=== PATIENT | female | born 1950 | race Caucasian/White ===

== ENCOUNTER 2016-04-09 06:13 | Inpatient (IN) | payer BC ==
[~2016-04-09] VITALS: Ht 170.2 cm; Wt 69.6 kg
[~2016-04-09 06:13] MED LIST: ALBUTEROL2.5 MG/3 M INH; ATARAX 25 MG TA25 MG PO; BAYER CHEWABLE81 MG PO; BYSTOLIC10 MG PO; LASIX40 MG PO; NEXIUM40 MG PO; NICODERM C1 PATCH .1 TRANSDERM; NORVASC5 MG PO; OMEPRAZOLE; PROAIR HFA8.5 GM INH; SPIRIVA18 MCG INH; SYMBICORT 16010.2 GM INH
[2016-04-09 07:17] LABS: BASOPHILS 0.1 % (0.0-2.0); EOSINOPHILS 0.1 % (0-7); HEMATOCRIT 37.3 % (36.0-48.0); HEMOGLOBIN 13.8 g/dL (12-16); IMMATURE GRANULOCYTES 0.6 % (0-5); LYMPHOCYTES 10.8 % (15-50); MCH 30.4 pg (26.0-34.0); MCV 82.2 fL (80.0-100.0); MEAN PLATELET VOLUME 8.7 fL (7.4-10.4); MONOCYTES 5.8 % (2-11); NEUTROPHILS 82.6 % (40-80); PLATELET COUNT 307 10x3/uL (130-400); RBC 4.54 10x6/uL (4.00-5.40); RDW 11.7 % (11.5-14.5); WBC 6.9 10x3/uL (4.8-10.8)
[2016-04-09 07:25] LABS: INR 0.84 (0.85-1.17); PROTIME 11.3 SECONDS (11.6-15.0)
[2016-04-09 07:34] LABS: ALBUMIN 3.2 g/dL (3.4-5.0); ALKALINE PHOSPHATASE 113 U/L (46-116); ALT (SGPT) 567 U/L (10-68); AMYLASE - SERUM 144 U/L (25-115); CARBON DIOXIDE 24.6 mmol/L (21.0-32.0); CREATININE - SERUM 0.6 mg/dL (0.6-1.3); GLUCOSE 78 mg/dL (74-106); MAGNESIUM - SERUM 1.6 mg/dL (1.8-2.4); PROTEIN - SERUM 7.1 g/dL (6.4-8.2); UREA NITROGEN 9 mg/dL (7-18); eGFR NON AFRICAN AMERICAN > 90 mL/min (90-120)
[2016-04-09 07:36] LABS: CALC OSMOLALITY 211 mosm/kg (275-300); LIPASE 2454 U/L (73-393)
[2016-04-09 07:38] LABS: CHLORIDE - SERUM 74 mmol/L (98-107); POTASSIUM - SERUM 6.2 mmol/L (3.5-5.1); SODIUM 105 mmol/L (136-145)
[2016-04-09 07:52] LABS: APPEARANCE CLEAR (CLEAR); BILIRUBIN NEGATIVE (NEGATIVE); COLOR YELLOW (YELLOW); GLUCOSE NEGATIVE (NEGATIVE); KETONE MODERATE mg/dL (NEGATIVE); LEUKOCYTE ESTERASE NEGATIVE (NEGATIVE); NITRITE NEGATIVE (NEGATIVE); PROTEIN 1+ mg/dL (NEGATIVE); SPECIFIC GRAVITY 1.015 (1.005-1.020); UROBILINOGEN NORMAL (NORMAL)
[2016-04-09 07:54] LABS: BACTERIA FEW /hpf (NONE SEEN); RED CELLS - URINE 0-5 /hpf (0-5); WHITE CELLS - URINE 0-5 /hpf (0-5)
--- NOTE | 2016-04-09 11:02 | NUR ---
1055-RECEIVED VIA STRETCHER FROM THE ED WITH PELAYO CATH IN PLACE. I EMPTIED 800 CC OF YELLOW URINE. THERE IS A WASHCLOTH AROUND LEFT ANKLE FROM "DRAINIGN FLUID FOR A LONG TIME". PATIENT HAS 2+ EDEMA SEEN TO RIGHT ANKLE AND MULTIPLE BRUSING, THIN SKIN TO BILATERAL LOWER EXTREMITIES. SALINE LOCK SEEN TO LEFT AC. PATIENT REPORTS THAT SHE TOOK A DRINK LAST NIGHT AND "HAS DRANK ALL MY LIFE". SISTER IN LAW AT BEDSIDE AND STATES THAT SHE WILL BRING US A LIST OF HER MEDCATIONS TO BE PLACED INTO THE SYSTEM. NPO. PLACED ON HEART MONITOR SHOWING SR W 1 DEGREE AVB, HR 62.
[2016-04-09 11:05] VITALS: BP 144/72; BMI 23.1
[2016-04-09 11:11] VITALS: BP 144/72; BMI 23.1
[2016-04-09 12:00] VITALS: BP 144/72
[2016-04-09] MEDS ORDERED: PROTONIX40 MG PO (12:50)
[2016-04-09] MEDS ORDERED: NEURONTIN 300300 MG PO (12:51)
[2016-04-09] MEDS ORDERED: ALDACTONE25 MG PO (12:52)
[2016-04-09] MEDS ORDERED: MIRAPEX0.5 MG PO (12:52)
[2016-04-09] MEDS ORDERED: THERMOTABS 1 GM1 GM PO (12:52)
[2016-04-09] MEDS ORDERED: VENTOLIN HFA18 GM INH (12:53)
--- NOTE | 2016-04-09 14:17 | NUR ---
1661-[address] REED OFFICE TO SEE ABOUT RENEWING MIRAPEX 0.5 MG DAILY FOR PATIENT'S RLS. SPOKE WITH DR LINDSEY WITH NEW ORDERS.
--- NOTE | 2016-04-09 14:19 | NUR ---
CALLED AND SPOKE TO [facility] IN PHARMACY TO SEE IF THEY WOULD PUT MIRAPEX IN SYSTEM FOR PATIENT.
--- NOTE | 2016-04-09 14:49 | NUR ---
TWO COMPLETE FULL BAGS OF HOME MEDICATIONS SENT TO PHARMACY. COPY OF THIS IS PLACED INTO THE FRONT OF THE CHART.
[2016-04-09 16:00] VITALS: BP 140/79
--- NOTE | 2016-04-09 16:59 | NUR ---
TO MRI VIA STRETCHER.
[2016-04-09 22:07] VITALS: BP 190/80
--- NOTE | 2016-04-09 22:23 | NUR ---
INITIAL ROUNDS COMPLETED AT 1920 HRS. PT RESTING WITH EYES CLOSED. RESP EVEN AND REGULAR. ASSESSMENT COMPLETED AT 2039 HRS. PT AWAKES TO VERBAL STIMULI. FOLLOWS COMMANDS. IV TO LAC WITH BANANA BAG AT 125CC/HR. IV PATENT. O2 2LNC. LUNGS DIMINISHED IN BASES BILAT. BRUISES AND SCABS NOTED TO ALL 4 EXTREMITIES. DRESSING TO LOWER L LEG CLEAN, DRY AND INTACT. PM MEDS GIVEN. PELAYO DRAINING YELLOW URINE. PT CURRETNLY RESTING WITH EYES CLOSED. RESP EVEN AND REGULAR. SR UP X2, CALL LIGHT WITHIN REACH AND BED ALARM ON.
--- NOTE | 2016-04-09 22:34 | NUR ---
ADDITIONAL NOTED. ON ASSESSMENT ABD LARGE WITH EXTREMELY HYPOACTIVE BS.
--- NOTE | 2016-04-10 00:52 | NUR ---
BP 199/97. SR PER CM HR 75. DR SOARES NOTIFIED AND UPDATE, DX AND MED LIST GIVEN. NEW ORDERS RECEIVED AND NOTED. Milvia JOHNSON RN HS NOTIFIED TO PULL MEDS. SCD'S PLACED PER ORDERS. WILL CONTINUE TO MONITOR. SR UP X2, CALL LIGHT WITHIN REACH AND BED ALARM ON.
[2016-04-10 01:00] VITALS: BP 199/97
--- NOTE | 2016-04-10 02:20 | NUR ---
PT RESTING WITH EYES CLOSED. RESP EVEN AND REGULAR. SR UP X2, CALL LIGHT WITHIN REACH.
[2016-04-10 02:41] VITALS: BP 185/92
--- NOTE | 2016-04-10 04:01 | NUR ---
ATIVAN 1MG SIVP GIVEN FOR TREMORS. WILL CONTINUE TO MONITOR.
[2016-04-10 04:31] VITALS: BP 147/68
--- NOTE | 2016-04-10 06:34 | NUR ---
VSS THIS AM. SBP IN 140'S. PT RESTED WELL DURING SHIDT. NEEDS MET; WILL CONTIHNUE TO MONITOR.
[2016-04-10 07:22] LABS: BASOPHILS 0.2 % (0.0-2.0); EOSINOPHILS 0.2 % (0-7); HEMATOCRIT 34.4 % (36.0-48.0); HEMOGLOBIN 12.2 g/dL (12-16); IMMATURE GRANULOCYTES 0.4 % (0-5); LYMPHOCYTES 13.2 % (15-50); MCH 29.8 pg (26.0-34.0); MCHC 35.5 g/dL (31.0-37.0); MCV 83.9 fL (80.0-100.0); MEAN PLATELET VOLUME 9.1 fL (7.4-10.4); MONOCYTES 9.2 % (2-11); NEUTROPHILS 76.8 % (40-80); PLATELET COUNT 291 10x3/uL (130-400); WBC 5.5 10x3/uL (4.8-10.8)
--- NOTE | 2016-04-10 07:22 | NUR ---
0705-AM ROUNDING DONE WITH PATIENT SEELPING. RESP ARE EVEN AND APPEAR NON LABORED. ON 2L PER NC. NS INFUSING TO LEFT AC AT 125 CC/HR. PELAYO CATH PATENT WITH CLEAR YELLOW URINE. NPO STATUS AT PRESENT TIME. BED ALARM IS ON. ON HEART MONITOR SHOWING SR W 1 AVB, HR 71. WILL CONTINUE TO MONITOR.
[2016-04-10 07:26] LABS: INR 0.91 (0.85-1.17); PROTIME 12.1 SECONDS (11.6-15.0)
[2016-04-10 07:35] LABS: ALBUMIN 2.7 g/dL (3.4-5.0); ALKALINE PHOSPHATASE 96 U/L (46-116); BILIRUBIN - DIRECT 0.32 mg/dL (0.00-0.30); BILIRUBIN - INDIRECT 0.46 mg/dL (0.00-1.00); BILIRUBIN - TOTAL 0.78 mg/dL (0.2-1.3); CALCIUM 7.9 mg/dL (8.5-10.1); CARBON DIOXIDE 25.9 mmol/L (21.0-32.0); CHLORIDE - SERUM 86 mmol/L (98-107); CREATININE - SERUM 0.5 mg/dL (0.6-1.3); MAGNESIUM - SERUM 2.3 mg/dL (1.8-2.4); PHOSPHOROUS 2.5 mg/dL (2.5-4.9); PROTEIN - SERUM 6.1 g/dL (6.4-8.2); UREA NITROGEN 8 mg/dL (7-18); eGFR NON AFRICAN AMERICAN > 90 mL/min (90-120)
[2016-04-10 07:36] LABS: ALT (SGPT) 335 U/L (10-68); CALC OSMOLALITY 234 mosm/kg (275-300); GLUCOSE 50 mg/dL (74-106); POTASSIUM - SERUM 4.9 mmol/L (3.5-5.1); SODIUM 119 mmol/L (136-145)
--- NOTE | 2016-04-10 07:41 | NUR ---
LAB TO CALL WITH RESULTS OF GLUCOSE WITH 50. PATIENT IS NPO BUT I WENT AHEAD AND GAVE 120 CC OF OJ.
[2016-04-10 08:00] VITALS: BP 157/78
--- NOTE | 2016-04-10 09:04 | NUR ---
WILL HOLD B/P MEDS UNTIL I CAN HEAR BACK FROM MD. B/P IS 157/48.
--- NOTE | 2016-04-10 09:39 | NUR ---
PATIENT HAS BILATEAL ARMS AND LEG BRUISING SEEN WITH THIN SKIN. WILL CONTINUE TO MONITOR.
[2016-04-10 12:00] VITALS: BP 129/61
[2016-04-10 12:56] VITALS: Ht 170.2 cm; Wt 69.6 kg
--- NOTE | 2016-04-10 15:30 | NUR ---
PATIENT RESTING OFF AND ON, NO SIGNS OF DT'S AT THIS TIME. WILL CONTINUE TO MONITOR.
--- NOTE | 2016-04-10 16:11 | NUR ---
1610-WITH THE HELP OF KEKE DE LA TORRE AND MYSELF, WELL ASSISTED PATIENT TO CHAIR FOR COMPLETE BATH AND LINEN CHANGE. ASSISTED BACK TO BED, BED ALARM IS ON.
--- NOTE | 2016-04-10 19:39 | NUR ---
INITIAL ROUNDS COMPLETED. PT ASKING FOR A CIGARETTE. INFORMED NO SMOKING IN HOSPITAL OR ON PREMISES. WILL CONTINUE TO MONITOR.
[2016-04-10 21:20] VITALS: BP 186/85
--- NOTE | 2016-04-10 23:37 | NUR ---
ASSESSMENT COMPETED AT 2019 HRS. SR PER CM HR 88. BP ELEVATED. IV TO LAC WITH BANANA BAG AT 125CC/HR. IV PATENT. O2 3LNC. PRODUCTIVE COUGH NOTED. LUNGS WITH BILAT WHEEZES AND RHONCHI. NUMEROUS BRUISES AND SCABS NOTED TO ALL EXTREMITIES. DRESSING TO L LOWER LEG CLEAN, DRY AND INTACT. ABD DISTENDED, FIRM WITH VERY HYPOACTIVE BS NOTED. SCD'S PLACED BACK ON PT. NO SKIN BREAKDOWN NOTED. PM MEDS GIVEN INCLUDING CATAPRES 0.1 MG FOR ELEVATED BP. PT CURRENTLY VERY RESTLESS IN BED. WILL CONTINUE TO MONITOR. PELAYO DRAINING YELLOW URINE. SR UP X2, CALL LIGHT WITHIN REACH AND BED ALARM ON.
[2016-04-11 00:30] VITALS: BP 149/91
--- NOTE | 2016-04-11 00:51 | NUR ---
O2 OFF WITH O2 SAT 85%. O2 3LNC PLACED BACK ON AND PT ENCOURAGED TO TAKE DEEP BREATHS. PT PULLED UP IN BED TO FACILITATE BREATHING. O2 SAT TO 93%. BP STABLE. PT OPENES EYES TO VERBAL STIMULI, FOLLOWS COMMANDS THEN QUICKLY FALLS BACK TO SLEEP. SR UP X2, CALL LIGHT WITHIN REACH AND BED ALARM ON
--- NOTE | 2016-04-11 02:35 | NUR ---
PT RESTING WITH EYES CLOSED. RESP EVEN AND REGULAR. SR UP X2, CALL LIGHT WITHIN REACH.
[2016-04-11 04:30] VITALS: BP 188/99
--- NOTE | 2016-04-11 04:42 | NUR ---
PT RESTING WITH EYES CLOSED. RESP EVEN AND REGULAR. SR UP X2, CALL LIGHT WITHIN REACH AND BED ALARM ON.
[2016-04-11 05:44] LABS: BASOPHILS 0.2 % (0.0-2.0); EOSINOPHILS 0 % (0-7); HEMATOCRIT 31.2 % (36.0-48.0); HEMOGLOBIN 10.9 g/dL (12-16); IMMATURE GRANULOCYTES 0.6 % (0-5); LYMPHOCYTES 14.3 % (15-50); MCH 29.9 pg (26.0-34.0); MCHC 34.9 g/dL (31.0-37.0); MCV 85.7 fL (80.0-100.0); MEAN PLATELET VOLUME 8.6 fL (7.4-10.4); MONOCYTES 11.2 % (2-11); NEUTROPHILS 73.7 % (40-80); RBC 3.64 10x6/uL (4.00-5.40); RDW 12.2 % (11.5-14.5); WBC 5.4 10x3/uL (4.8-10.8)
[2016-04-11 05:46] LABS: PLATELET COUNT 225 10x3/uL (130-400)
[2016-04-11 06:08] LABS: ALBUMIN 2.4 g/dL (3.4-5.0); ALKALINE PHOSPHATASE 82 U/L (46-116); BILIRUBIN - TOTAL 0.67 mg/dL (0.2-1.3); CALC OSMOLALITY 240 mosm/kg (275-300); CALCIUM 7.9 mg/dL (8.5-10.1); CARBON DIOXIDE 24.4 mmol/L (21.0-32.0); CHLORIDE - SERUM 91 mmol/L (98-107); CREATININE - SERUM 0.6 mg/dL (0.6-1.3); GLUCOSE 75 mg/dL (74-106); LIPASE 178 U/L (73-393); MAGNESIUM - SERUM 2.2 mg/dL (1.8-2.4); PHOSPHOROUS 2.7 mg/dL (2.5-4.9); POTASSIUM - SERUM 4.5 mmol/L (3.5-5.1); PROTEIN - SERUM 5.7 g/dL (6.4-8.2); SODIUM 121 mmol/L (136-145); UREA NITROGEN 7 mg/dL (7-18); eGFR NON AFRICAN AMERICAN > 90 mL/min (90-120)
[2016-04-11 06:09] LABS: ALT (SGPT) 226 U/L (10-68); AMYLASE - SERUM 32 U/L (25-115)
--- NOTE | 2016-04-11 06:38 | NUR ---
CLONIDONE 0.1MF PO GIVEN FOR SBP GREATER THAN 180. SR PER CM DURING SHIFT. O2 SAT 91% ON 3LNC THIS AM. NEEDS MET; WILL CONTINUE TO MONITOR.
--- NOTE | 2016-04-11 07:32 | NUR ---
0710-RESTING WITH EYES CLOSED, RESP APPEAR EVEN AND NON LABORED. ON 3L PER NC. LEFT AC SEEN WITH NS INFUSING AT 125 CC/HR. ON HEART MONITOR SHOWING SR W 1 AVB, HR 84. PELAYO CATH PATENT WITH CONCENTRATED URNIE. BED ALARM IS ON. BILATERAL NON SKID SOCKS ARE ON ALONG WITH SCD'S. WILL CONTINUE TO MONITOR.
--- NOTE | 2016-04-11 07:37 | NUR ---
AMMONIA LEVEL TO RETURN OF 37. WILL WAIT ON DR SAORES TO NOTIFY HIM. SISTER IN LAW MAYNOR HERE AT BEDSIDE.
[2016-04-11 09:10] VITALS: BP 149/69
--- NOTE | 2016-04-11 09:28 | NUR ---
0924-DR SOARES HERE TO SEE PATIENT WITH ME IN ROOM. TALKED ABOUT CONCERNS OF NOT BEING ON LIBRUIM, GETTING OFF SCHEDULED ATIVAN, EATING, AND LUNGS SOUNDING MORE CONGESTED THAN YESTERDAY. HE REPLIES THAT HE WILL LOOK AT CHEST XRAY AND LET US KNOW FROM THERE. WILL CONTINUE TO MONITOR. RT HERE FOR PRN BREATHING TREATMENT, O2 INCREASED TO 4L PER NC.
--- NOTE | 2016-04-11 09:51 | NUR ---
IV FLUIDS DECREASED TO 75 CC/HR ORDERED.
--- NOTE | 2016-04-11 10:51 | NUR ---
TO RADIOLOGY VIA BED.
--- NOTE | 2016-04-11 11:12 | NUR ---
RETURNS FROM CT, BED ALARM IS ON. SISTER JENNIFER) IS AT BEDSIDE.
[2016-04-11 12:00] VITALS: BP 126/70
--- NOTE | 2016-04-11 14:37 | NUR ---
DR CUTLER HERE TO SEE PATIENT.
--- NOTE | 2016-04-11 15:37 | NUR ---
PER DR CUTLER, IF PATIENT STARTS HAVING DT'S, TRANSFER TO ICU.
[2016-04-11 16:00] VITALS: BP 144/77
--- NOTE | 2016-04-11 17:40 | NUR ---
PATIENT IS STARTING TO GET VERY ANXIOUS, STATES SHE CAN'T BREATH. O2 SAT IS 92% ON 4L PER NC. 1 MG ATIVAN GIVEN PER LEFT AC. WILL CONTINUE TO MONITOR. BED ALARM IS ON.
--- NOTE | 2016-04-11 18:20 | NUR ---
181-PATIENT TO GET INTO A COUGHING FIT. TAKES O2 OFF, SAT DROPS TO 75 %. PLACED IMMEDIATLEY BACK ON O2 AT 4L PER. PLACED HUMMIDIFIER ALSO ON O2. 182-SAT IS 89%. WILL CONTINUE TO MONITOR.
[2016-04-11 20:19] VITALS: BP 146/73
--- NOTE | 2016-04-11 22:59 | NUR ---
INITIAL ROUNDS COMPLETED AT 1920 HRS. PT DENIED ANY DISCOMFORT. ASSESSMENT COMPLETED AT 2100 HRS. VSS. SR PER CM HR 87. O2 4LNC. LUNGS DIMINISHED IN BASES BILAT WITH SCATTERED INSP WHEEZES. BRUISES AND SCABS NOTED TO ALL EXTREMITIES. SCD'S IN USE. REMOVED AND SKIN INSPECTED. NO BREAKDOWN NOTED. ABD LARGE, FIRM WITH HYPOACTIVE BS. IV TO LAC WITH NS AT 75CC/HR. PM MEDS GIVEN. PT CURRENTLY RESTING WITH EYES CLOSED. RESP EVEN AND REGULAR. SR UP X2, CALL LIGHT WITIN REACH.
[2016-04-12 00:06] VITALS: BP 141/69
--- NOTE | 2016-04-12 00:48 | NUR ---
PT RESTING WITH EYES CLOSED. RESP EVEN AND REGULAR. SR UP X2, CALL LIGHT WITHIN REACH.
--- NOTE | 2016-04-12 01:50 | NUR ---
PT AWAKE; DENIES ANY DISCOMFORT. WILL CONITNUE TO MONITOR.
--- NOTE | 2016-04-12 03:17 | NUR ---
TORADOL 15MG IVP GIVEN FOR C/O BACK PAIN. REPOSITIONED IN BED FOR COMFORT. WILL CONTINUE TO MONITOR.
--- NOTE | 2016-04-12 04:21 | NUR ---
PT AWAKE; DENIES ANY DISCOMFORT. WILL CONTINUE TO MONITOR.
[2016-04-12 05:34] LABS: BASOPHILS 0 % (0.0-2.0); EOSINOPHILS 0 % (0-7); HEMATOCRIT 30.1 % (36.0-48.0); HEMOGLOBIN 10.3 g/dL (12-16); IMMATURE GRANULOCYTES 0.4 % (0-5); LYMPHOCYTES 5.2 % (15-50); MCH 29.8 pg (26.0-34.0); MCHC 34.2 g/dL (31.0-37.0); NEUTROPHILS 93.4 % (40-80); PLATELET COUNT 266 10x3/uL (130-400); RBC 3.46 10x6/uL (4.00-5.40); RDW 12.4 % (11.5-14.5)
[2016-04-12 05:52] LABS: ALBUMIN 2.3 g/dL (3.4-5.0); ALKALINE PHOSPHATASE 81 U/L (46-116); ALT (SGPT) 175 U/L (10-68); BILIRUBIN - TOTAL 0.48 mg/dL (0.2-1.3); CALCIUM 8.3 mg/dL (8.5-10.1); CARBON DIOXIDE 24.6 mmol/L (21.0-32.0); CHLORIDE - SERUM 94 mmol/L (98-107); CREATININE - SERUM 0.7 mg/dL (0.6-1.3); LIPASE 84 U/L (73-393); POTASSIUM - SERUM 4.4 mmol/L (3.5-5.1); PROTEIN - SERUM 5.9 g/dL (6.4-8.2); SODIUM 125 mmol/L (136-145); UREA NITROGEN 7 mg/dL (7-18); eGFR NON AFRICAN AMERICAN 90 mL/min (90-120)
[2016-04-12 05:53] LABS: AMYLASE - SERUM 18 U/L (25-115); CALC OSMOLALITY 252 mosm/kg (275-300); GLUCOSE 148 mg/dL (74-106); MAGNESIUM - SERUM 1.6 mg/dL (1.8-2.4); PHOSPHOROUS 3.4 mg/dL (2.5-4.9)
[2016-04-12 05:55] VITALS: BP 137/71
--- NOTE | 2016-04-12 06:28 | NUR ---
VSS THROUGHOUT NIGHT. SR PER CM. AM MAG 1.6. 400 MG MAG PO GIVEN PER PROTOCOL. NEEDS MET; WILL CONTINUE TO MONITOR.
--- NOTE | 2016-04-12 08:00 | NUR ---
PTS L.AC PIV INFILATRATED. NEW L.AC ACCESS GRANTED. PT HAS NS @75ML/HR INFUSING.
[2016-04-12 08:25] VITALS: BP 132/90
--- NOTE | 2016-04-12 08:35 | NUR ---
PT STATES SHE SMOKES ABOUT 2 PACKS OF CIGARETTES A DAY REQUESTING A NICOTENE PATCH. NOTIFIED AND REC'D ORDER FOR 21 PATCH. WILL CPOC.
--- NOTE | 2016-04-12 11:49 | NUR ---
PT BECOMING VERY IRRITABLE. UNABLE TO VOICE AGITATION. SISTER AT BEDSIDE VISITING. PULLED PT UP IN BED FOR COMFORT. PT DENIES ANY FURTHER NEEDS AT THIS TIME. WILL CPOC.
[2016-04-12 12:53] VITALS: BP 149/69
--- NOTE | 2016-04-12 13:31 | NUR ---
Patient Name: HAROLDO MITCHELL Admission Status: ER Accout number: [id number] Admission Date: 04-09-2016 : 1950 Admission Diagnosis:HYPO-OSMOLALITY AND HYPONATREMIA Attending: [facility] Current LOS: 3 Anticipated DC Date: Planned Disposition: Home Primary Insurance: [employer] [facility] Discharge Planning Comments: * Is the patient Alert and Oriented? Yes 0 * How many steps to enter\exit or inside your home? NONE 0 * PCP DR. RATLIFF 0 * Pharmacy [facility] 0 * Preadmission Environment Home Alone 0 * ADLs Independent 0 * Equipment Bedside Commode Nebulizer Oxygen Rolling Walker 0 * Other Equipment HOME AND PORTABLE OXYGEN [facility] - MEDICAL EQUIPMENT PROVIDER 0 * List name and contact numbers for known caregivers / representatives who currently or will assist patient after discharge: CESAR SCHAEFFER, SISTER, MAYNOR ARELLANO, SISTER IN LAW, 0 * Community resources currently utilized None 0 * Please name any agencies selected above. NONE 0 * Additional services required to return to the preadmission environment? Yes * Can the patient safely return to the preadmission environment? No 0 * Has this patient been hospitalized within the prior 30 days at any hospital? No 0 CM MET WITH PT IN ROOM TO DISCUSS DISCHARGE PLANNING AND NEEDS. PT REPORTS LIVING AT HOME INDEPENDENTLY AND ALONE. PT REPORTS HAVING ALL NEEDED MEDICAL EQUIPMENT FROM [facility]; PT REPORTS SHE NEEDS CM TO CALL [facility] TO FOREIGN BROADCAST SPECIALIST HER HOME/PORTABLE OXYGEN AND NEBULIZER BECAUSE SHE DOES NOT NEED IT AND CANNOT AFFORD IT ON HER FIXED INCOME. CM OBSERVED PT TO BE ON OVER 4LITERS OF OXYGEN NOW, CM ADVISED PT THAT SHE WILL BE TESTED FOR OXYGEN NEEDS PRIOR TO DISCHARGE AND THAT IF PT IS WANTING [facility] TO FOREIGN BROADCAST SPECIALIST EQUIPMENT, SHE MIGHT WAIT UNTIL SHE IS SURE SHE DOES NOT NEED IT AFTER THIS HOSPITALIZATION TO HAVE IT REMOVED FROM HER HOME. PT HAS NO OUTSIDE SERVICES ASSISTING IN THE HOME. CM DISCUSSED AVAILABILITY OF HOME HEALTH, REHAB SERVICES AND MEDICAL EQUIPMENT. PT DENIES DISCHARGE NEEDS, REPORTS PLAN TO RETURN HOME ALONE AT DISCHARGE SHE IS NOT ABLE TO AFFORD ANY REHAB OR HOME HEALTH SERVICES. PT REPORTS HER SISTER WILL PICK HER UP FOR DISCHARGE HOME. CM RECEIVED TELEPHONE CALL FROM PT'S SISTER IN LAW, MAYNOR PRESCOTT, , WHO INFORMED CM THAT SHE DOES NOT BELIVE PT WILL BE ABLE TO DISCHARGE HOME ALONE; PT MAY BE ABLE TO GO TO HER SISTER'S HOME AFTER HOSPITAL DISCHARGE OR AFTER DISCHARGE FROM REHAB. MAYNOR WILL SPEAK TO PT REGARDING REHAB SERVICES. PT PLANS TO DISCHARGE HOME ALONE; FAMILY TO SPEAK TO PT ABOUT GOING TO REHAB BEFORE GOING HOME. CM TO FOLLOW AND ASSIST NEEDED. Hedge Fund Accountant: Armand Lazo
--- NOTE | 2016-04-12 15:59 | NUR ---
[facility] BRACE HERE WITH [facility] BR[facility]. BRACE IN PLACE. WILL CTM.
[2016-04-12 16:49] VITALS: BP 147/76
--- NOTE | 2016-04-12 17:02 | NUR ---
PTS OUTPUT HAS BEEN VERY LOW LATELY, UPON CHECKING CATHETER NOTICED IT WASNT IN ALL THE WAY. REMOVED CATHETER WITH BULB FULLY INTACT. PT WANTS TO TRY TO VOID ON HER OWN BEFORE ANOTHER ONE IS PLACED. ASSISTED PT UP IN BED TO EAT DINNER. WILL CTM.
--- NOTE | 2016-04-12 19:30 | NUR ---
ASSESSMENT COMPLETE, DENNIES NEEDS AT THIS TIME. HOB UP SR UP X2, C/L IN REACH. RESP UNLAB WITH O2 @ 4L NC IN USE, TELEMETRY SHOWING HR SR. NS INFUSING W//O DIFF VIA PUMP AT 75CC/HR TO LEFT AC SITE WITH NO R/S NOTED AT SITE. WEARING BRIEF FOR INCONT EPISODES. BACK BRACE IN PLACE, NO FREE WATER AT BEDSIDE. CONTINUE TO MONITOR.
[2016-04-12 21:47] VITALS: BP 157/80
[2016-04-13 01:44] VITALS: BP 165/96
--- NOTE | 2016-04-13 02:35 | NUR ---
EYES CLOSED, RESP EVEN AND UNLAB WITH NO S/S OF ACUTE DISTRESS NOTED AT THIS TIME. C/L IN REACH.
[2016-04-13 06:07] LABS: BASOPHILS 0 % (0.0-2.0); EOSINOPHILS 0 % (0-7); HEMATOCRIT 31.2 % (36.0-48.0); HEMOGLOBIN 10.5 g/dL (12-16); IMMATURE GRANULOCYTES 0.3 % (0-5); LYMPHOCYTES 3.7 % (15-50); MCH 29.4 pg (26.0-34.0); MCHC 33.7 g/dL (31.0-37.0); MCV 87.4 fL (80.0-100.0); MEAN PLATELET VOLUME 8.4 fL (7.4-10.4); MONOCYTES 3.4 % (2-11); NEUTROPHILS 92.6 % (40-80); PLATELET COUNT 266 10x3/uL (130-400); RBC 3.57 10x6/uL (4.00-5.40); RDW 12.6 % (11.5-14.5)
[2016-04-13 06:10] VITALS: BP 175/119
[2016-04-13 06:13] LABS: WBC 8.9 10x3/uL (4.8-10.8)
[2016-04-13 06:39] LABS: ALBUMIN 2.5 g/dL (3.4-5.0); ALKALINE PHOSPHATASE 87 U/L (46-116); ALT (SGPT) 157 U/L (10-68); BILIRUBIN - TOTAL 0.37 mg/dL (0.2-1.3); CALC OSMOLALITY 252 mosm/kg (275-300); CALCIUM 8.6 mg/dL (8.5-10.1); CARBON DIOXIDE 25.2 mmol/L (21.0-32.0); CHLORIDE - SERUM 94 mmol/L (98-107); CREATININE - SERUM 0.6 mg/dL (0.6-1.3); GLUCOSE 139 mg/dL (74-106); MAGNESIUM - SERUM 1.6 mg/dL (1.8-2.4); POTASSIUM - SERUM 4.4 mmol/L (3.5-5.1); PROTEIN - SERUM 6.2 g/dL (6.4-8.2); SODIUM 126 mmol/L (136-145); UREA NITROGEN 6 mg/dL (7-18); eGFR NON AFRICAN AMERICAN > 90 mL/min (90-120)
[2016-04-13 08:08] VITALS: BP 161/78
[2016-04-13 11:39] VITALS: BP 148/59
--- NOTE | 2016-04-13 13:03 | NUR ---
Nutrition follow-up: Diet: Regular with thin liquids; FR PO intake ~40% average of last 3 meals Labs reviewed Wt: 157# PO intake poor at this time. Will continue to provide food choices and honor food preferences. RDN will order Ensure with meals due to poor po intake. RDN following.
--- NOTE | 2016-04-13 13:13 | NUR ---
PASSED PT OFF TO ONCOMING NURSE CRISTINA RUBIN. NO FURTHER NEEDS.
[2016-04-13 15:42] VITALS: BP 153/79
--- NOTE | 2016-04-13 18:06 | NUR ---
Pt's IV had been pulled out when pt. was received this afternoon. IV was resited using 22guage in right ac. NS fluids are running via pump at 75ml's/hr. 02 per nc going at 4L/min. Telementry attached. No voiced needs or signs of discomfort or distress. Will continue to monitor and assist prn with adl's. Call light in reach.
--- NOTE | 2016-04-13 19:30 | NUR ---
ASSESSMENT COMPLETE, VOICES NO C/O PAIN OR DISCOMFORT AT THIS TIME. HOB UP SR UP X2, C/L IN REACH. O2 @ 4L NC IN PLACE, NS INFUSING W/O DIFF VIA PUMP AT 75CC/HR TO RT AC IV WITH NO R/S NOTED AT SITE. TELEMETRY SHOWING HR SR PER NUCLEAR WEAPONS MECHANICAL SPECIALIST. NOT WEARING BACK BRACE AT THIS TIME. CONTINUE TO MONITOR.
[2016-04-13 20:11] VITALS: BP 169/85
--- NOTE | 2016-04-14 01:46 | NUR ---
EYES CLOSED, RESP EVEN AND UNLAB WITH NO S/S OF ACUTE DISTRESS NOTED. C/L IN REACH. CONTINUE TO MONITOR.
[2016-04-14 02:18] VITALS: BP 156/85
[2016-04-14 05:06] LABS: BASOPHILS 0 % (0.0-2.0); EOSINOPHILS 0 % (0-7); HEMATOCRIT 31.9 % (36.0-48.0); HEMOGLOBIN 10.7 g/dL (12-16); IMMATURE GRANULOCYTES 0.4 % (0-5); LYMPHOCYTES 3.5 % (15-50); MCH 29.5 pg (26.0-34.0); MCHC 33.5 g/dL (31.0-37.0); MCV 87.9 fL (80.0-100.0); MEAN PLATELET VOLUME 8.7 fL (7.4-10.4); MONOCYTES 4.1 % (2-11); PLATELET COUNT 280 10x3/uL (130-400); RBC 3.63 10x6/uL (4.00-5.40); RDW 12.8 % (11.5-14.5); WBC 8.2 10x3/uL (4.8-10.8)
[2016-04-14 05:29] LABS: CALC OSMOLALITY 254 mosm/kg (275-300); CALCIUM 8.2 mg/dL (8.5-10.1); CARBON DIOXIDE 26.2 mmol/L (21.0-32.0); CHLORIDE - SERUM 94 mmol/L (98-107); CREATININE - SERUM 0.6 mg/dL (0.6-1.3); GLUCOSE 131 mg/dL (74-106); MAGNESIUM - SERUM 1.5 mg/dL (1.8-2.4); PHOSPHOROUS 4.2 mg/dL (2.5-4.9); POTASSIUM - SERUM 4.3 mmol/L (3.5-5.1); SODIUM 127 mmol/L (136-145); UREA NITROGEN 7 mg/dL (7-18); eGFR NON AFRICAN AMERICAN > 90 mL/min (90-120)
[2016-04-14 06:42] VITALS: BP 165/85
[2016-04-14 08:56] VITALS: BP 178/70
--- NOTE | 2016-04-14 09:56 | NUR ---
RESTING IN BED. ALERT ORIENTED CONVERSANT. PRODUCTIVE COUGH NOTED. PHLEGM WITH PARTICULATE NOTED. NO ACUTE DISTRESS NOTED. DENIES NEEDS
[2016-04-14 12:28] VITALS: BP 148/70
[2016-04-14 15:44] VITALS: BP 142/87
--- NOTE | 2016-04-14 16:43 | NUR ---
RESP UL ON . IV PATENT. CALL LIGHT IN REACH. WILL CONT. PLAN OF CARE.
--- NOTE | 2016-04-14 20:06 | NUR ---
PT RESTING IN BED. ALERT/ORIENTED. TELLS NURSE "I HAVE BEEN SCREAMING FOR HALF AN HOUR FOR SOMEONE TO COME HERE". THERE HAS NOT BEEN ANY SOUNDS FROM PT'S ROOM. CHECKED PATIENT'S CALL LIGHT AND IT WORKS PROPERLY, WHICH SHE STATES SHE TURNED ON, BUT IT WAS OFF. ASKED PT WHAT SHE IS NEEDING AND SHE TELLS NURSE TO RAISE HER HEAD UP WITH THE BED CONTROLS AND THAT IS WHAT SHE NEEDED. SEE ASSESSMENT. CPOC. DOOR TO ROOM LEFT HALF OPEN FOR SUPERVISION/INCREASED ABILITY TO HEAR PT IS SHE IS TRULY CALLING OUT IN A LOW VOICE.
[2016-04-14 22:30] VITALS: BP 181/74
--- NOTE | 2016-04-14 23:05 | NUR ---
HS MEDS GIVEN. DID NOT GIVE CHRONULAC PATIENT SAYS SHE HAD 3 BOWEL MOVEMENTS AFTER RECEIVING TODAYS AM DOSE OF CHRONULAC. ALL MEDS REVIEWED WITH PATIENT. PT NOW RESTING WITH TV OFF. CALL LIGHT IN REACH.
[2016-04-15 01:21] VITALS: BP 136/79
[2016-04-15 04:57] LABS: BASOPHILS 0 % (0.0-2.0); EOSINOPHILS 0 % (0-7); HEMATOCRIT 32.2 % (36.0-48.0); HEMOGLOBIN 10.7 g/dL (12-16); IMMATURE GRANULOCYTES 0.4 % (0-5); LYMPHOCYTES 6.7 % (15-50); MCH 29.6 pg (26.0-34.0); MCHC 33.2 g/dL (31.0-37.0); MEAN PLATELET VOLUME 8.9 fL (7.4-10.4); MONOCYTES 7.4 % (2-11); NEUTROPHILS 85.5 % (40-80); PLATELET COUNT 308 10x3/uL (130-400); RBC 3.62 10x6/uL (4.00-5.40); RDW 12.9 % (11.5-14.5)
[2016-04-15 05:19] LABS: CALC OSMOLALITY 262 mosm/kg (275-300); CALCIUM 8.1 mg/dL (8.5-10.1); CARBON DIOXIDE 29.2 mmol/L (21.0-32.0); CHLORIDE - SERUM 96 mmol/L (98-107); CREATININE - SERUM 0.7 mg/dL (0.6-1.3); GLUCOSE 121 mg/dL (74-106); MAGNESIUM - SERUM 1.4 mg/dL (1.8-2.4); PHOSPHOROUS 3.7 mg/dL (2.5-4.9); POTASSIUM - SERUM 3.6 mmol/L (3.5-5.1); SODIUM 131 mmol/L (136-145); UREA NITROGEN 11 mg/dL (7-18); eGFR NON AFRICAN AMERICAN 90 mL/min (90-120)
[2016-04-15 05:59] VITALS: BP 165/79
--- NOTE | 2016-04-15 07:41 | NUR ---
PT SITTING UP TO CHAIR STUDENT NURSE IN ROOM STUDENT NURSE TO PASS MEDS WILL CONT TO MONITOR.
[2016-04-15 07:49] VITALS: BP 160/82
--- NOTE | 2016-04-15 09:43 | NUR ---
Rehab Prescreening Consult recieved and the chart has been reviewed. She has BC Fed and, unfortunatley it will not cover inpatient rehab at [facility]. Recommend an in-network rehab or home with HH. The CM Irma Stanton has been made aware. Sonia Saleem RN Clinical Liaison, Rehab
--- NOTE | 2016-04-15 11:08 | NUR ---
Patient Name: HAROLDO MITCHELL Encounter No: [id number] : 1950 Primary Insurance: [employer] FEP Anticipated DC Date: Planned Disposition: INPATIENT REHAB External [facility] DCP follow-up note: CM RECEIVED ORDER FOR INPATIENT REHAB PRESCREEN, REVIEWED CHART AND MET WITH PT IN ROOM. PT INITIALLY REPORTED HER PLAN AGAIN, TO RETURN HOME. CM REVIEWED THERAPY NOTES AND EXPRESSED CONCERN THAT IT WAS NOT SAFE TO GO HOME IN HER WEAKENED STATE AND ENCOURAGED PT TO TAKE ADVANTAGE OF INSURANCE COVERED SERVICES AND ASKED PT TO AT LEAST LET CM SEE IF INPATIENT REHAB WAS AN OPTION. PT UNDERSTANDS THAT [facility] IS IN NETWORK FOR HER INSURANCE AND WOULD LIKE TO SEND REFERRAL THERE SO SHE MAY HAVE OPTIONS IF NOT STRONG ENOUGH TO RETURN HOME. CM CALLED [facility], , SPOKE TO JAKY, NURSE LIAISON, NOTIFIED OF REFERRAL. CM FAXED REFERRAL FOR REHAB SCREENING TO [facility] AT [phone]. CM WAITING INPATIENT REHAB SCREENING FROM [facility] AND INSURANCE AUTHORIZATION. Armand Lazo, CASE MANAGEMENT
[2016-04-15 11:47] VITALS: BP 136/71
--- NOTE | 2016-04-15 11:48 | NUR ---
IV access-20 gauge accucath inserted in left antecubital area. Nakia Fernandez RN
--- NOTE | 2016-04-15 12:31 | NUR ---
PT SITTING UP TO CHAIR EATING LUNCH. NALINI PURVIS NURSE GOT PIV IN LEFT AC. FLUIDS NOW RUNNING AND PATENT. PT DENIES NEEDS AT THIS TIME WILL CONT TO MONITOR.
--- NOTE | 2016-04-15 15:30 | NUR ---
PT PIV INFILTRATED AGAIN!! IV WAS JUST INSERTED BY VASCULAR NURSE AROUND 1200. PT ONLY GETTING NS. CALLED DR REED, HE SAID TO HOLD OFF ON THE IV FOR NOW. DC PIV WITH CATHETER TIP INTACT.
[2016-04-15 16:25] VITALS: BP 148/64
--- NOTE | 2016-04-15 17:10 | NUR ---
PT SITTING UP DENIES NEEDS AT THIS TIME. PT HAS BEEN REFUSING TO DO MUCH FOR HERSELF TODAY. PT HAS BEEN IN THE CHAIR FOR MOST OF THE DAY, BUT WHEN THERAPY TRIES TO WALK HER SHE IS REFUSING AND SAYING THAT SHE CANT.
[2016-04-15 20:37] VITALS: BP 179/63
[2016-04-16 00:52] VITALS: BP 119/57
--- NOTE | 2016-04-16 02:10 | NUR ---
LYING IN BED WITH EYES CLOSED, CALL LIGHT IN REACH. WILL CONTINUE WITH PLAN OF CARE.
[2016-04-16 05:04] VITALS: BP 184/56
[2016-04-16 05:26] LABS: BASOPHILS 0 % (0.0-2.0); EOSINOPHILS 0 % (0-7); HEMATOCRIT 34.3 % (36.0-48.0); HEMOGLOBIN 11.5 g/dL (12-16); IMMATURE GRANULOCYTES 0.4 % (0-5); MCH 29.9 pg (26.0-34.0); MCHC 33.5 g/dL (31.0-37.0); MCV 89.3 fL (80.0-100.0); MEAN PLATELET VOLUME 8.9 fL (7.4-10.4); MONOCYTES 11.5 % (2-11); NEUTROPHILS 78.1 % (40-80); PLATELET COUNT 302 10x3/uL (130-400); RBC 3.84 10x6/uL (4.00-5.40); RDW 12.9 % (11.5-14.5)
[2016-04-16 05:35] LABS: WBC 10.1 10x3/uL (4.8-10.8)
[2016-04-16 05:51] LABS: CALC OSMOLALITY 269 mosm/kg (275-300); CALCIUM 8.1 mg/dL (8.5-10.1); CARBON DIOXIDE 33.7 mmol/L (21.0-32.0); CHLORIDE - SERUM 96 mmol/L (98-107); CREATININE - SERUM 0.7 mg/dL (0.6-1.3); GLUCOSE 105 mg/dL (74-106); MAGNESIUM - SERUM 1.5 mg/dL (1.8-2.4); SODIUM 135 mmol/L (136-145); UREA NITROGEN 13 mg/dL (7-18); eGFR NON AFRICAN AMERICAN 90 mL/min (90-120)
[2016-04-16 05:56] LABS: POTASSIUM - SERUM 2.8 mmol/L (3.5-5.1)
--- NOTE | 2016-04-16 06:57 | NUR ---
POTASSIUM 2.8 AND MAG. 1.5, STARTED COVERAGE PER PROTOCOL.
--- NOTE | 2016-04-16 07:30 | NUR ---
RESTING QUIETLY NAD NOTED
--- NOTE | 2016-04-16 07:43 | NUR ---
ASSESSMENT DONE. PT A/A/O X3. FAMILY IN ROOM. PT SITTING UP IN BED WITH HOB ELEVATED. WATCHING TV. WEARING SCD'S DENIES ANY WANTS OR NEEDS AT THIS TIME. CALL LIGHT WITH IN REACH. WILL CONT. TO MONITOR.
--- NOTE | 2016-04-16 07:57 | HP ---
PATIENT: HAROLDO MITCHELL MEDICAL RECORD: [id number] ACCOUNT: [id number] LOCATION:[address] : [birth year] ADMISSION DATE: 04/09/16 HISTORY AND PHYSICAL EXAMINATION HISTORY OF PRESENT ILLNESS: A 65-year-old female who presented to the Emergency Room with complaint of abdominal pain and constipation. PAST MEDICAL HISTORY: Significant for alcohol abuse on a daily basis, GERD, hypertension, restless leg and COPD. ALLERGIES: PENICILLIN. MEDICATIONS: Mirapex for restless legs, inhalers and blood pressure meds. SOCIAL HISTORY: Limited historian secondary to alcohol abuse. REVIEW OF SYSTEMS: Very limited secondary to above. On her workup in the Emergency Room, CT of the abdomen and pelvis was obtained, which showed a T12 compression fracture. She denies falls, but again, she is a heavy daily drinker. PHYSICAL EXAMINATION: VITAL SIGNS: Temperature 97.5, blood pressure is 140/79, heart rate 69, respirations 22 and O2 sats 94%. GENERAL: Alert to person. HEENT: Normocephalic and atraumatic. Eyes, reactive, slightly icteric. Nose: Nares patent. Ears: Canals patent. Throat: No erythema. NECK: Supple. HEART: Regular rate and rhythm. No S3, S4, no rub. LUNGS: Clear to auscultation bilaterally. Breathing is nonlabored. ABDOMEN: Soft, slight distention. Bowel sounds positive. EXTREMITIES: Present times 4. SKIN: Warm and dry, mild jaundice, moderate ecchymosis. LABORATORY DATA: Quantitative alcohol is negative. ABG: pH 7.4, pCO2 of 35.1, pO2 of 62. Urinalysis yellow, clear, moderate ketones, few bacteria, negative leukocyte esterase. CBC: White count 6.9, hemoglobin 13.8, hematocrit 37.3 and platelets 307. PT is 11.3, INR is 0.84. Chemistry shows a sodium of 105, potassium 6.2, chloride 74, bicarbonate 24.6, BUN 9, creatinine 0.6, magnesium 1.6. AST is 321, ALT is 567, amylase 144 and lipase 2454. IMAGING: CT abdomen and pelvis, compression fracture of T11, mild edema changes retroperitoneal fat adjacent to the pancreatic head, small renal cyst. Redundant prominent fluid and air-filled colon, slightly prominent small bowel, right abdomen, possible ileus, stenotic disease, proximal superior mesenteric artery, unchanged from prior CTA. EKG sinus rhythm, rate of 63. ASSESSMENT: Severe hyponatremia, alcohol abuse, pancreatitis, T11 compression fracture and advanced alcoholic liver disease. PLAN: The patient is admitted. IV normal saline and also IV banana bag. DT precautions. Monitor labs. Neurosurgery was consulted with the compression fracture. Supportive care, n.p.o. tonight and may start Gatorade p.o. in a.m. HISTORY AND PHYSICAL [id number] HAROLDO MITCHELL TRANSINT:[id number] Voice Confirmation ID: [id number] DOCUMENT ID: [id number] ANDRES LINDSEY DO at 0757 CC: [id number] DICTATION DATE: 04/09/161840 HOME ATTENDANT: 04/09/162204 ADM IN [facility] [address] [id number]
[2016-04-16 08:23] VITALS: BP 160/79
--- NOTE | 2016-04-16 11:17 | NUR ---
Patient Name: HAROLDO MITCHELL Encounter No: [id number] : 1950 Primary Insurance: [employer] FEP Anticipated DC Date: Planned Disposition: Home DCP follow-up note: CM [facility], , SPOKE TO VIDYA, NURSE LIAISON, WHO REPORTED THAT SHE MET WITH PT YESTERDAY AND WILL SUBMIT TO INSURANCE IF PT IS WILLING TO PAY THE $875 OUT OF POCKET COSTS FOR INPATIENT REHAB (THIS COSTS WOULD BE BILLED TO PT WITH NO UP FRONT COSTS). CM CALLED [facility], , WHO ADVISED THAT PT WOULD HAVE SIMILAR OUT OF POCKET, NORMALLY A SMALL AMOUNT LESS THAN INPATIENT, FOR SNF REHAB SERVICES WITH [facility]. CM NOTIFIED PT WHO REPORTS SHE CANNOT AFFORD TO PAY ANYTHING FOR REHAB SERVICES AND WILL NOT GO TO INPATIENT OR SKILLED REHAB SHE DOES NOT HAVE THE MONEY. PT CONTINUES TO REPORT PLAN TO GO HOME AT DISCHARGE. CM OFFERED TO CALL [facility] TO EXPLORE COPAYS AND DEDUCTIBLES FOR PT. PT AGREED AND SIGNED CHOICE FOR [facility]. PT REPORTS SHE WALKED INTO THE HALLWAY AND IS DOING BETTER. PT ASKED CM TO CALL [facility] AND HAVE HER OXYGEN AND NEBULIZER PICKED UP SHE CANNOT AFFORD THE COPAY. CM EXPLAINED THAT PT MAY NEED THE EQUIPMENT AND CM WILL CALL [facility] AND ASK A FOOD SAFETY DIRECTOR TO SPEAK TO HER. CM CALLED [facility]. [phone], WHO WILL CHECK ON PT'S ACCOUNT AND SEE IF PT MAY QUALIFY FOR [facility]'S FINANCIAL ASSISTANCE PROGRAM AND WILL FOLLOW UP WITH PT IN ROOM. PT IS SERVICED OUT OF THE [facility] OFFICE IN [place], NOT THE LOCAL [place] OFFICE; PT'S INSURANCE WILL ONLY PAY FOR NEW OXYGEN EQUIPMENT ONCE EVERY THREE YEARS, ORIGINAL SET UP PROVIDED 02/2015. CM CALLED [facility], , NOTIFIED OF REFERRAL TO DETERMINE COPAYS AND OUT OF POCKET EXPENSES FOR PT IF HOME HEALTH IS ORDERED AND ACCEPTED. CM FAXED REFERRAL TO [facility] AT [phone]. CM WAITING PT'S OUT OF POCKET / COPAY INFORMATION FOR HOME HEALTH SERVICES FROM [facility]. Armand Lazo, CASE MANAGEMENT
[2016-04-16 12:03] VITALS: BP 139/69
--- NOTE | 2016-04-16 13:29 | NUR ---
Nutrition Follow Up: Medical staff was in pt's room at the time of RD visit. Interview deferred at this time. Chart reviewed. Pt is eating 60% meal avg on a Regular diet. I>O. Wt loss 7# since admit. +BM 04/15/16. Labs noted - Na, K+, Mag low. Meds noted including NS @ 30 ml/hr, Prednisone, Lasix, Lactulose, Zofran. Pt with fair po intake at this time. Rec continue current diet. Will continue to send selective menus and honor food preferences. RD following.
[2016-04-16 15:58] VITALS: BP 134/66
--- NOTE | 2016-04-16 16:34 | NUR ---
Patient Name: HAROLDO MITCHELL Encounter No: [id number] : 1950 Primary Insurance: [employer] FEP Anticipated DC Date: Planned Disposition: Home DCP follow-up note: CM RECEIVED CALL FROM GIANA, HE HAS SPOKEN TO PT AND WILL TRANSFER PT'S CHART FROM [facility] [place] TO [place] AND WILL WORK ON FINANCIAL AIDE WITH PT FOR HER OXYGEN AND NEBULIZER AT HOME. CM RECEIVED CALL FROM [employer], PT HAS $30 COPAY FOR EACH HOME HEALTH VISIT, FOR EACH DISCIPLINE. CM NOTIFIED PT, DISCUSSED COPAYS FOR INPATIENT REHAB, [facility] AND HOME HEALTH. PT REPORTS INABILITY TO AFFORD ANY OPTION AND PLANS TO RETURN HOME. CM ADVISED PT TO WORK WITH THERAPY WHILE HERE AND GO HOME AT DISCHARGE. CM ADVISED PT TO SPEAK TO FRIENDS AND FAMILY TO SEE IF THEY ARE AVAILABLE TO ASSIST IN HER CARE AFTER DISCHARGE. PT REFUSES INPATIENT REHAB, [facility] AND HOME HEALTH DUE TO COSTS, REPORTS PLAN TO DISCHARGE HOME ALONE. CM TO FOLLOW AND ASSIST NEEDED. Armand Lazo, CASE MANAGEMENT
--- NOTE | 2016-04-16 17:20 | NUR ---
PT LAYING IN BED HOB ELEVATED. DENIES NEEDS AT THIS TIME. NO DISTRESS NOTED. CALL LIGHT WITH IN REACH. WILL CONT. TO MONITOR.
[2016-04-16 19:48] VITALS: BP 157/79
--- NOTE | 2016-04-16 19:54 | NUR ---
UP WITH ASSIST FROM RN TEAM LEADER TO BSC.
--- NOTE | 2016-04-16 20:25 | NUR ---
HS MEDS GIVEN WITH FRESH LEMON CHINIK SODA, PT DENIES NEEDS, WILL CONT TO MONITOR.
--- NOTE | 2016-04-17 00:08 | NUR ---
RESTING WITH EYES CLOSED, RESPERATIONS EVEN, NO S/S DISTRESS NOTED.
[2016-04-17 00:47] VITALS: BP 140/60
[2016-04-17 03:41] VITALS: BP 172/76
[2016-04-17 05:18] LABS: BASOPHILS 0 % (0.0-2.0); EOSINOPHILS 0 % (0-7); HEMATOCRIT 32.3 % (36.0-48.0); HEMOGLOBIN 10.6 g/dL (12-16); IMMATURE GRANULOCYTES 0.4 % (0-5); LYMPHOCYTES 9.4 % (15-50); MCH 29.7 pg (26.0-34.0); MCHC 32.8 g/dL (31.0-37.0); MCV 90.5 fL (80.0-100.0); NEUTROPHILS 80.2 % (40-80); PLATELET COUNT 295 10x3/uL (130-400); RBC 3.57 10x6/uL (4.00-5.40); RDW 13.2 % (11.5-14.5); WBC 8.5 10x3/uL (4.8-10.8)
[2016-04-17 05:39] LABS: CALC OSMOLALITY 274 mosm/kg (275-300); CALCIUM 8.5 mg/dL (8.5-10.1); CARBON DIOXIDE 35.8 mmol/L (21.0-32.0); CHLORIDE - SERUM 98 mmol/L (98-107); CREATININE - SERUM 0.7 mg/dL (0.6-1.3); GLUCOSE 107 mg/dL (74-106); MAGNESIUM - SERUM 1.6 mg/dL (1.8-2.4); PHOSPHOROUS 3.2 mg/dL (2.5-4.9); POTASSIUM - SERUM 3.4 mmol/L (3.5-5.1); SODIUM 137 mmol/L (136-145); UREA NITROGEN 16 mg/dL (7-18); eGFR NON AFRICAN AMERICAN 90 mL/min (90-120)
[2016-04-17 08:16] VITALS: BP 166/68
[2016-04-17 12:21] VITALS: BP 146/76
--- NOTE | 2016-04-17 15:27 | NUR ---
PT HAD LARGE
--- NOTE | 2016-04-17 15:42 | NUR ---
PT HAD LARGE BOWEL MOVEMENT INCONTINENT IN HER BED. CLEANED PT UP AND REPOSITIONED FOR COMFORT. ENCOURAGED PT TO SPIT UP ANY MUCOUS IF POSSIBLE. PT RESTING QUIETLY AND DENIES ANY FURTHER NEEDS. CL IN REACH. WILL CTM.
[2016-04-17 15:53] VITALS: BP 135/71
--- NOTE | 2016-04-17 19:15 | NUR ---
RECEIVED REPORT, BILATERAL EDEMA, AB. DISTENT, SCD ARE ON, NO-IV. [id number], 02-2L, BED IS LOW, SRX2, CALL LIGHT IN REACH, WILL CONTINUE TO MONITOR
[2016-04-17 21:17] VITALS: BP 160/77
--- NOTE | 2016-04-18 00:32 | NUR ---
PT RESTING WITH EYES CLOSED. RESP EVEN AND REGULAR. SR UP X2, CALL LIGHT WITHIN REACH.
[2016-04-18 02:01] VITALS: BP 154/69
[2016-04-18 05:48] VITALS: BP 166/77
[2016-04-18 06:22] LABS: BASOPHILS 0.1 % (0.0-2.0); EOSINOPHILS 0.1 % (0-7); HEMATOCRIT 33.2 % (36.0-48.0); HEMOGLOBIN 10.7 g/dL (12-16); IMMATURE GRANULOCYTES 0.4 % (0-5); LYMPHOCYTES 14.8 % (15-50); MCH 29.4 pg (26.0-34.0); MCHC 32.2 g/dL (31.0-37.0); MCV 91.2 fL (80.0-100.0); MEAN PLATELET VOLUME 8.9 fL (7.4-10.4); MONOCYTES 12.2 % (2-11); NEUTROPHILS 72.4 % (40-80); PLATELET COUNT 286 10x3/uL (130-400); RBC 3.64 10x6/uL (4.00-5.40); RDW 13.5 % (11.5-14.5); WBC 8.5 10x3/uL (4.8-10.8)
[2016-04-18 06:50] LABS: ALBUMIN 2.4 g/dL (3.4-5.0); ALKALINE PHOSPHATASE 62 U/L (46-116); ALT (SGPT) 63 U/L (10-68); CALC OSMOLALITY 271 mosm/kg (275-300); CALCIUM 8.5 mg/dL (8.5-10.1); CARBON DIOXIDE 32.4 mmol/L (21.0-32.0); CHLORIDE - SERUM 97 mmol/L (98-107); CREATININE - SERUM 0.6 mg/dL (0.6-1.3); GLUCOSE 99 mg/dL (74-106); MAGNESIUM - SERUM 1.4 mg/dL (1.8-2.4); PHOSPHOROUS 3.5 mg/dL (2.5-4.9); PRO BNP 1095 pg/mL (0-125); PROTEIN - SERUM 5.9 g/dL (6.4-8.2); SODIUM 136 mmol/L (136-145); UREA NITROGEN 13 mg/dL (7-18); eGFR NON AFRICAN AMERICAN > 90 mL/min (90-120)
[2016-04-18 08:44] VITALS: BP 155/78
--- NOTE | 2016-04-18 09:31 | NUR ---
PROVIDED PT WITH MORNING MEDS. SHIFT ASSESSMENT COMPLETED. PT REQUESTED AND WAS PROVIDED WITH AN ADDITIONAL MILK OF MAG MEDICATION TO HELP WITH CONSTIPATION. ABDOMEN STILL VERY DISTENDED AND TIGHT HOWEVER PT HAD GOOD SIZE BM YESTERDAY ON MY SHIFT AND IS PASSING GAS AND ALL BOWEL SOUNDS ARE ACTIVE. PT STATES SHE HAS BEEN FEELING SO MUCH BETTER SINCE LIDOCAINE PATCH HAS BEEN INITIATED TO LOWER BACK. PTS BILAT LEGS STILL PITTING EDEMA ALONG WITH BILAT HIPS TIGHT. ELEVATE BILAT LEGS WHEN IN BED. BILAT SCDS IN PLACE. PT RESTING AND DENIES ANY CURRENT PAIN OR NEEDS. CL IN REACH. WILL CPOC.
[2016-04-18 13:13] VITALS: BP 146/73
[2016-04-18 17:01] VITALS: BP 136/68
--- NOTE | 2016-04-18 19:30 | NUR ---
ASSESSMENT COMPLETE, ALERT AND ORIENTED X3, TELEMETRY IN PLACE SHOWING HR SR PER ORANGE PICKING SUPERVISOR. NO IV SITE NOTED. HOB UP SR UP X2, C/L IN REACH. WEARING BRIEF FOR INCONT. EPISODES, WITH LCUIE CARE ANBD LINEN CHANGES DONE PRN. RESP UNLAB WITH O2 @ 2L NC IN USE, ABD DISTENDED, NONTENDER TO TOUCH. BILAT LEG SWELLING NOTED WITH 3+ PITTING EDEMA NOTED TO BILAT FEET. UP ON 2 PILLOWS AT THIS TIME, WITH BILAT SCDS OFF FOR A BREAK. CONTINUE TO MONITOR.
[2016-04-18 21:30] VITALS: BP 138/68
[2016-04-19 00:45] VITALS: BP 124/70
--- NOTE | 2016-04-19 02:27 | NUR ---
EYES CLOSED, RESP EVEN AND UNLAB WITH NO S/S OF ACUTE DISTRESS NOTED. C/L IN REACH. CONTINUE TO MONITOR.
[2016-04-19 04:30] VITALS: BP 163/61
[2016-04-19 07:09] LABS: BASOPHILS 0 % (0.0-2.0); EOSINOPHILS 0.1 % (0-7); HEMATOCRIT 34.5 % (36.0-48.0); HEMOGLOBIN 11.1 g/dL (12-16); IMMATURE GRANULOCYTES 0.3 % (0-5); LYMPHOCYTES 18.1 % (15-50); MCH 29.4 pg (26.0-34.0); MCHC 32.2 g/dL (31.0-37.0); MCV 91.5 fL (80.0-100.0); MEAN PLATELET VOLUME 8.7 fL (7.4-10.4); MONOCYTES 12.4 % (2-11); NEUTROPHILS 69.1 % (40-80); PLATELET COUNT 269 10x3/uL (130-400); RBC 3.77 10x6/uL (4.00-5.40); RDW 13.3 % (11.5-14.5); WBC 7.2 10x3/uL (4.8-10.8)
[2016-04-19 07:29] LABS: ALBUMIN 2.4 g/dL (3.4-5.0); ALKALINE PHOSPHATASE 62 U/L (46-116); ALT (SGPT) 58 U/L (10-68); CALC OSMOLALITY 273 mosm/kg (275-300); CALCIUM 8.8 mg/dL (8.5-10.1); CHLORIDE - SERUM 98 mmol/L (98-107); CREATININE - SERUM 0.6 mg/dL (0.6-1.3); GLUCOSE 104 mg/dL (74-106); MAGNESIUM - SERUM 1.7 mg/dL (1.8-2.4); POTASSIUM - SERUM 4.3 mmol/L (3.5-5.1); PROTEIN - SERUM 6.4 g/dL (6.4-8.2); SODIUM 137 mmol/L (136-145); UREA NITROGEN 13 mg/dL (7-18); eGFR NON AFRICAN AMERICAN > 90 mL/min (90-120)
--- NOTE | 2016-04-19 07:40 | NUR ---
AM ROUNDING DONE WITH SISTER IN LAW AT BEDSIDE. ON 2L PER NC. ON HEART ONITOR SHOWING SR, HR 77. PATIENT STILL WITH COUGH. ON EP, LAB VALUES ARE GOOD. FAXED TO DR REED ORDERED.
[2016-04-19 08:00] VITALS: BP 125/77
--- NOTE | 2016-04-19 09:52 | EC ---
PATIENT:HAROLDO MITCHELL DATE OF SERVICE: 04/09/16 SEX: F MEDICAL RECORD: [id number] DATE OF : [birth year] LOCATION:D.M2 D.213 AGE OF PATIENT: 65 ADMISSION DATE: 04/09/16 REFERRING PHYSICIAN: INTERPRETING PHYSICIAN: COURTNEY IGLESIAS MD ECHOCARDIOGRAM REPORT ECHO CHARGES 4 ECHO COMPLETE CLINICAL DIAGNOSIS: ELEVATED PRO/BNP EDEMA ECHOCARDIOGRAPHIC MEASUREMENTS (adult normal given) AC root (d.<3.7cm) 3.2 LV Septum d (<1.2 cm> 1.4 Valve Excursion 1.3 LV Septum (systole) 1.5 Left Atria (s.<4.0cm> 2.7 LVPW d(<1.2cm) 1.4 RV (d.<2.3cm) 3.1 LVPW (sytole) 1.5 LV diastole(<5.6CM) 5.0 MV E-F(>70mm/sec) LV systole 3.1 LVOT Diameter 1.8 MV exc.(>10mm) 1.6 Est.ejection fraction (50-75%) Pericardial Effusion N DOPPLER: LVIT A 99.0 E 77.0 LA RVSP 22 LVOT 125 AOP1/2T Asc. Ao 146 RVOT RA PA AV Gradient Peak 8.5 AV Mean 4.37 AV Area 2.1 MV Gradient Peak 3.81 MV Mean 1.87 MV Area COMMENTS: Senior Technical Specialist: Marisel MEYER Clinical Education Academic Coordinator:Jana Rodarte TAPE# PACS DATE OF SERVICE: 04/18/2016 Adequate 2D echo, color flow, spectral Doppler, M-mode. LVH present. LV internal dimension is normal. Wall motion is normal. EF is greater than 55%. Aortic valve is tricuspid. No evidence of stenosis by Doppler interrogation. The left atrium is normal at 2.7 cm. Mitral valve shows no prolapse. Trace MR. Right-sided chamber is grossly normal. Trace TR. TRANSINT:[id number] Voice Confirmation ID: [id number] DOCUMENT ID: [id number] ECHOCARDIOGRAM REPORT [id number] HAROLDO MITCHELL COURTNEY IGLESIAS MD at 0952 CC: [id number] DICTATION DATE: 04/18/16 09 COKE HANDLING SUPERVISOR: 04/18/16 1030 ADM IN [facility] [address] [facility]
--- NOTE | 2016-04-19 10:00 | NUR ---
Patient Name: HAROLDO MITCHELL Encounter No: [id number] : 1950 Primary Insurance: [employer] FEP Anticipated DC Date: 04-19-2016 Planned Disposition: INPATIENT REHAB External Planned Provider: [facility] INPATIENT REHAB DCP follow-up note: CM RECEIVED ORDER FOR INPATIENT REHAB OR [facility] PT IS NOT ABLE TO CARE FOR SELF AT THIS TIME AND NEEDS REHAB SERVICES. CM SPOKE TO PT AND PT'S SISTER, MAYNOR ([phone]) IN PT'S ROOM; PT REPORTS SHE HAS NOW DECIDED TO GO TO REHAB AT [facility] SHE WANTS A PRIVATE ROOM AND HER SISTER AND BROTHER IN LAW HAVE AGREED TO ASSIST WITH COPAY. MAYNOR REPORTS THAT THEY WILL ASSIST WITH ANY COPAYS FOR PT'S REHAB. CM CALLED [facility], , SPOKE TO VIDYA, NURSE LIAISON, NOTIFIED OF REFERRAL. CM FAXED REFERRAL FOR REHAB SCREENING TO [facility] AT [phone]. CM WAITING INPATIENT REHAB SCREENING FROM [facility] AND INSURANCE AUTHORIZATION. Armand Lazo, CASE MANAGEMENT
[2016-04-19 12:00] VITALS: BP 128/81; BP 148/77
--- NOTE | 2016-04-19 12:36 | NUR ---
DENIES NEEDS AT PRESENT TIME, WILL CONTINUE TO MONITOR.
[2016-04-19 16:00] VITALS: BP 144/78
--- NOTE | 2016-04-19 19:15 | NUR ---
RESTING QUIETLY NAD NOTED
--- NOTE | 2016-04-19 19:34 | NUR ---
PT IS RESTING IN BED WITH EYES OPEN. ALERT AND ORIENTED X 3. DENIES ACUTE PAIN OR DISCOMFORT AT THIS TIME. TELEMETRY UNIT IS INTACT. O2 IS ON @ 2LPM PER NC. NO SOB NOTED. SR'S ARE UP X 2 IN BED. CALL LIGHT AND BEDSIDE TABLE ARE WITHIN EASY REACH.
[2016-04-19 20:03] VITALS: BP 149/71
--- NOTE | 2016-04-19 21:38 | NUR ---
PT RESTING IN BED WITH EYES OPEN. NO NEEDS VOICED.
--- NOTE | 2016-04-19 23:12 | NUR ---
RESTING QUIETLY IN BED WITH EYES CLOSED. RESPS ARE EVEN AND UNLABORED. NO ACUTE DISTRESS NOTED.
--- NOTE | 2016-04-20 01:14 | NUR ---
PT IS RESTING IN BED WITH EYES CLOSED. NO DISTRESS NOTED.
[2016-04-20 01:37] VITALS: BP 144/69
--- NOTE | 2016-04-20 03:00 | NUR ---
RESTING IN BED WITH EYES CLOSED.
[2016-04-20 04:19] VITALS: BP 155/74
--- NOTE | 2016-04-20 04:45 | NUR ---
RESTING IN BED WITH EYES CLOSED. NO DISTRESS NOTED.
[2016-04-20 05:14] LABS: BASOPHILS 0 % (0.0-2.0); EOSINOPHILS 0.2 % (0-7); HEMATOCRIT 33.7 % (36.0-48.0); HEMOGLOBIN 10.8 g/dL (12-16); IMMATURE GRANULOCYTES 0.2 % (0-5); LYMPHOCYTES 18.9 % (15-50); MCH 29.3 pg (26.0-34.0); MCV 91.6 fL (80.0-100.0); MEAN PLATELET VOLUME 8.8 fL (7.4-10.4); MONOCYTES 14.2 % (2-11); NEUTROPHILS 66.5 % (40-80); PLATELET COUNT 297 10x3/uL (130-400); RBC 3.68 10x6/uL (4.00-5.40); RDW 13.2 % (11.5-14.5); WBC 6.4 10x3/uL (4.8-10.8)
[2016-04-20 05:23] LABS: CALC OSMOLALITY 267 mosm/kg (275-300); CALCIUM 8.5 mg/dL (8.5-10.1); CARBON DIOXIDE 37.3 mmol/L (21.0-32.0); CHLORIDE - SERUM 96 mmol/L (98-107); CREATININE - SERUM 0.6 mg/dL (0.6-1.3); GLUCOSE 96 mg/dL (74-106); POTASSIUM - SERUM 4.5 mmol/L (3.5-5.1); SODIUM 134 mmol/L (136-145); UREA NITROGEN 12 mg/dL (7-18); eGFR NON AFRICAN AMERICAN > 90 mL/min (90-120)
--- NOTE | 2016-04-20 06:12 | NUR ---
MAGNESIUM IS 1.4 THIS AM. ELECTROLYTE PROTOCOL FOLLOWED.
[2016-04-20 08:06] VITALS: BP 152/80
--- NOTE | 2016-04-20 09:17 | NUR ---
Patient Name: HAROLDO MITCHELL Encounter No: [id number] : 1950 Primary Insurance: [employer] [facility] Anticipated DC Date: 04-20-2016 Planned Disposition: Inpatient Rehab External Planned Provider: [facility] INPATIENT REHAB DCP follow-up note: CM RECEIVED CALL FROM [facility], , SPOKE TO VIDYA NURSE LIAISON, NOTIFIED OF REHAB ACCEPTANCE AND INSURANCE AUTHORIZATION. PT NOTIFIED AND IN AGREEMENT WITH DISCHARGE PLAN. CM CALLED AND NOTIFIED DR. GIRMA SMITH'S NURSE. CM FAXED UPDATED MAR AND DISCHARGE ORDER TO [facility] AT [phone]. CM WAITING [facility] TO CALL CM WITH NURSE REPORT NUMBER AND VAN TRACTOR TRAILER TECHNICIAN TIME FOR TODAY. Armand Lazo, CASE MANAGEMENT
[2016-04-20] MEDS ORDERED: ZOFRAN4 MG PO (09:34)
[2016-04-20] MEDS ORDERED: NICODERM C1 PATCH .3 TRANSDERM (09:37)
[2016-04-20] MEDS ORDERED: CATAPRES0.1 MG PO (09:39)
[2016-04-20] MEDS ORDERED: BROVANA15 MCG/2 M INH (09:40)
[2016-04-20] MEDS ORDERED: IPRAT-ALBUT 0.5-3 ML UPD ×2 (09:41→09:42)
[2016-04-20] MEDS ORDERED: LIDODERM 5 %1 PATCH TRANSDERM (09:42)
[2016-04-20] MEDS ORDERED: APAP325 MG PO (09:43)
[2016-04-20] MEDS ORDERED: CHRONULAC30 ML PO (09:44)
[2016-04-20] MEDS ORDERED: K-DUR20 MEQ PO (09:44)
[2016-04-20] MEDS ORDERED: PULMICORT0.5 MG/21 INH (09:45)
[2016-04-20] MEDS ORDERED: MUCINEX DM ER1 EAC1 PO (09:46)
[2016-04-20] MEDS ORDERED: SINGULAIR10 MG PO (09:46)
[2016-04-20] MEDS ORDERED: DULCOLAX10 MG/SUPP RC (09:46)
[2016-04-20] MEDS ORDERED: FLORAJEN3 CAPS460 MG PO (09:47)
[2016-04-20] MEDS ORDERED: MILK OF MAGNESI30 ML PO (09:47)
[2016-04-20] MEDS ORDERED: MAG-OX 400 MG400 MG PO (09:48)
[2016-04-20] MEDS ORDERED: PREDNISONE10 MG PO (09:50)
[2016-04-20] MEDS ORDERED: LIBRIUM25 MG PO (09:54)
--- NOTE | 2016-04-20 10:57 | NUR ---
Patient Name: HAROLDO MITCHELL Encounter No: [id number] : 1950 Primary Insurance: [employer] FEP Anticipated DC Date: 04-20-2016 Planned Disposition: Inpatient Rehab External Planned Provider: [facility] DCP follow-up note: CM RECEIVED CALL FROM [facility], , SPOKE TO ADEN, NURSE, NOTIFIED OF ROOM NUMBER #[id number] FOR ADMISSION TO REHAB, NURSE REPORT TO BE CALLED TO [phone]; ADEN WILL CALL CM AFTER 1100 WITH VAN CUSTOMER CARE REPRESENTATIVE SCHEDULE. CM FAXED DISCHARGE MEDS AND INSTRUCTIONS TO [facility] AT [phone]. PT NOTIFIED. CM OFFERED TO CALL FAMILY, PT DECLINED, REPORTS HER SISTER IS AT WORK. NURSE REPORT TO BE CALLED TO [phone], BESSY LICONA TO CUSTOMER CARE REPRESENTATIVE PT AFTER 1100 TODAY. Armand Lazo, CASE MANAGEMENT
[2016-04-20 12:01] VITALS: BP 122/70
--- NOTE | 2016-04-20 12:47 | NUR ---
CALLED REPORT TO [facility] NURSE JOSE. PT COLLECTING BELONGINGS IN ROOM. AWAITING ON VAN TO BONDED STRUCTURES REPAIRER.
--- NOTE | 2016-04-20 13:04 | NUR ---
VAN HERE TO SPRAGGER PT. NO FURTHER NEEDS.
--- NOTE | 2016-04-23 12:39 | CN ---
PATIENT NAME:HAROLDO MITCHELL MEDICAL RECORD: [id number] : [birth year] LOCATION:. D.2135 ADMIT DATE: 04/09/16 ACCOUNT: [id number] CONSULTING PHYSICIAN: MERARI CUTLER MD REFERRING PHYSICIAN: RODRIGO RATLIFF MD DATE OF CONSULTATION: PRIMARY CARE PHYSICIAN: Carlee Soares MD REASON FOR CONSULTATION: Acute hypoxic respiratory failure, worsening shortness of breath, hypokalemia and ozygx-vw-dpozmmr pancreatitis. HISTORY OF PRESENT ILLNESS: Ms. Mitchell is a 65-year-old female, who was admitted on 04/09/2016 with abdominal pain and hyponatremia. She was found out she is in acute pancreatitis as well as hyponatremic with a sodium of 105, which is now 121. Since yesterday, the patient had worsening shortness of breath. She is more weak and lethargic and her oxygen requirement is increasing. REVIEW OF SYSTEMS: Mainly in the history of present illness. Now, the patient is very weak and lethargic and she easily goes to sleep. PAST MEDICAL HISTORY: 1. Gastroesophageal reflux disease. 2. History of chronic obstructive pulmonary disease. 3. Restless leg syndrome. 4. History of alcohol abuse on a daily basis. 5. History of hypertension. PAST SURGICAL HISTORY: Not obtainable. ALLERGIES: SHE IS ALLERGIC TO PENICILLIN AND CODEINE. PRESENT MEDICATIONS: She is on Librium. Her other medication is reviewed PERSONAL AND SOCIAL HISTORY: The patient is a very poor historian, now she is very weak and lethargic. She is consuming alcohol on a regular basis. She is smoking 1 pack per day. FAMILY HISTORY: Noncontributory. PHYSICAL EXAMINATION: GENERAL: Now, the patient is lying comfortably in bed. She is very lethargic. VITAL SIGNS: The blood pressure is 126/70, pulse is 81, respiration is 20, temperature is 97.9 and SpO2 is 96% on 3 liters nasal cannula. HEENT: Conjunctivae are pink. Sclerae are not icteric. NECK: Supple. No JVD. CHEST: The chest excursion is minimal on both sides. There are wheezes on forceful expiration. There are crackles at the left base. HEART: Rhythm regular, normal sound, no murmur. ABDOMEN: Soft, bowel sounds present. There is tenderness on deep palpation. RECTAL: Deferred. EXTREMITIES: No cyanosis, no clubbing, no pedal edema. SKIN: The skin is warm, normal turgor. CENTRAL NERVOUS SYSTEM: The patient is sleepy, but she could be easily CONSULT REPORT [id number] HAROLDO MITCHELL. There is no obvious cranial nerve abnormality. LABORATORY DATA: WBC 5.4, hemoglobin 10.9, hematocrit 31.2 and the platelet count 225. Chemistry on admission, sodium 105 and now it has jazz to 121, BUN is 7 and creatinine 0.6. The ammonia level is 37. On admission, her amylase was 144, the lipase was 2454. The liver enzymes, the AST is 321 and ALT is 569. Chest radiograph, there is old granulomatous disease as well as atelectasis, questionable infiltrate in the left lower lobe. IMPRESSION: 1. Acute exacerbation of chronic obstructive pulmonary disease. 2. Acute hypoxic respiratory failure. 3. Ysbab-ci-mdwnjhi pancreatitis. 4. 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 5. Alcoholism and possible delirium tremens. 6. Hyponatremia secondary to alcoholism. 7. Hepatic encephalopathy. 8. Tobacco dependence syndrome. 9. Old granulomatous disease. 10. Left basilar infiltrate, possible pneumonia, left lower lobe, possible aspiration with decreased mentation. 11. Gastroesophageal reflux disease. RECOMMENDATION: I will maximize the COPD exacerbation medications and start with prednisone IV, albuterol/ipratropium nebulizer, Brovana and budesonide nebulizer. Check the ABG. Lactulose 45 cc per oral b.i.d. Watch closely for DTs and if the patient is getting worse, she needs to be transferred to the ICU. BiPAP if required. Follow up labs, ammonia level and chest radiograph in the morning. Dr. Soares, once again thanks for involving me in the care of Ms. Mitchell. TRANSINT:[id number] Voice Confirmation ID: [id number] DOCUMENT ID: [id number] MEARRI CUTLER MD at 1239 CC: CARLEE SOARES DO [id number] DICTATION DATE: 04/11/16 1457 TRIP FOLLOWER: 04/12/16 0005 DIS IN 04/20/16 [facility] [address] [place] [address]
--- NOTE | 2016-07-13 06:55 | DS ---
PATIENT:HAROLDO MITCHELL :[birth year] MEDICAL RECORD: [id number] DISCHARGE SUMMARY ADMISSION DATE: 04/09/16 DISCHARGE DATE: 04/20/16 DATE OF ADMISSION: 04/09/2016 DATE OF DISCHARGE: 04/20/2016 CONDITION ON DISCHARGE: Improved. ADMITTING DIAGNOSES: Severe hyponatremia, alcohol abuse, pancreatitis, T11 compression fracture, advanced alcoholic liver disease. DISCHARGE DIAGNOSES: Hyponatremia, hypo-osmolality, history of alcoholism with hepatic failure without coma, history of acute pancreatitis, acute respiratory failure, pneumonitis, ileus, chronic obstructive pulmonary disease, T11 fracture, anemia, hypomagnesemia, hypertension, and restless leg syndrome. HOSPITAL COURSE: A 65-year-old female, who presented to the Emergency Room complaining of abdominal pain and constipation. PHYSICAL EXAMINATION: VITAL SIGNS: She was afebrile. Vital signs were stable. Respirations 22 and O2 sat was 94%. She was alert to person. HEENT: Unremarkable. NECK: Supple. There is no adenopathy. ABDOMEN: Soft. It is nontender. LABORATORY DATA: The patient had a quantitative alcohol level that was negative. She had ABGs: pH is 7.4, pCO2 is 35, and pO2 is 62. Urinalysis showed a few bacteria. White count 6.9, hemoglobin 13.8, hematocrit was 37.3, and platelets 307. INR was 0.84. Sodium was low at 105, potassium 6.2, chloride 74, bicarbonate was 24.6, BUN was 9, and creatinine was 0.6. Magnesium was low at 1.6. Her AST was 321, ALT of 567, amylase 144, and lipase 2454. The patient was admitted. Electrolytes were replaced. Neurosurgery consultation was obtained. She had, at the time of admission, abdominal pelvic CT scan, which did show slight basilar atelectasis, T11 compression fracture, mild edematous change in retroperitoneal fat adjacent to the pancreatic head and in the anterior pararenal space and pericolic gutter on the right. There is little haziness in the duodenum as well as minimal pancreatitis or duodenitis changes probably have this appearance, small renal cyst, redundant somewhat prominent fluid and air-fluid level in the colon, a little more prominent compared to previous. 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 The patient had a lumbar MRI. Lumbar MRI revealed acute and subacute compression fracture at T11, posterior buckling and posterior superior cortex and mild effacement of the distal thoracic cord, mild degenerative disc changes were seen. The patient had a CT scan of the head showing mild atrophy, chronic small vessel disease, minimal mixed chronic and acute maxillary sinusitis was noted. She had a chest x-ray showing mild chronic changes, some granulomatous calcifications, and slight left basilar atelectasis. She was also seen by Dr. Hernandez and Dr. Huffman, legal document specialist. She was seen also by neurosurgery, nurse practitioner, who felt that the patient would benefit from a TLSO, repeat the lumbar thoracic AP and lateral in 4 weeks, conservative therapy was felt to be needed. Slowly over the DISCHARGE SUMMARY REPORT [id number] HAROLDO MITCHELL following days, the patient's sodium corrected as did her amylase and lipase. On the , the patient was stable. It was felt that she should be discharged to rehabilitation. Her sodium was 134, potassium 4.5, chloride was 96, CO2 was 37, BUN was 12, and creatinine was 0.6. White count was 6.4, hemoglobin 10.8, hematocrit 33.7, and platelets were 297. The patient was therefore discharged to a rehab facility. MEDICATIONS: Included Lasix 40 mg 1 p.o. q. day, Norvasc 5 mg once a day, aspirin 81 mg once a day, Atarax 25 mg one every 6 hours p.r.n. anxiety, Bystolic 10 mg once a day, Protonix 40 mg once a day, Neurontin 300 mg p.o. q.h.s., Mirapex 0.5 mg p.o. q.h.s., Zofran 4 mg p.r.n. q.4 hours nausea, Nicoderm 21 mg patch on in the morning and off at night, Catapres 0.1 mg q.6 hours p.r.n. diastolic pressure greater than 170, ____ 15 mcg per 2 mL b.i.d., albuterol, Atrovent updrafts q.4 hours p.r.n. shortness of breath, Lidoderm 5% patch to apply over the T11 area daily, acetaminophen 650 mg q.6 hours p.r.n. back pain, lactulose 45 mg b.i.d., K-Dur 20 mEq b.i.d., Pulmicort 0.5 mg b.i.d., Mucinex 1 p.o. b.i.d., Singulair 10 mg daily, Dulcolax 10 mg p.o. q. day p.r.n. constipation, lactobacillus 460 mg p.o. q. day, Milk of Magnesia 30 cc p.o. q. day p.r.n. constipation, mag oxide 400 mg p.o. b.i.d., prednisone would be 10 mg tablets 40 mg 3 days, decrease to 30 mg for 3 days, 20 for 3 days, 10 for 3 days; and Librium 25 mg p.o. t.i.d. The patient was discharged to [facility] for rehabilitation. Continue current medication. She will follow up with me in approximately 10 days from her discharge. TRANSINT:[id number] Voice Confirmation ID: [id number] DOCUMENT ID: [id number] RODRIGO RATLIFF MD at 0655 CC: [id number] DICTATION DATE: 07/11/16 1100 RESTORATIVE ART EMBALMER: 07/11/16 2315 DIS IN 04/20/16 [place] [id number] [place] [id number]
== END 2016-04-20 13:04 | DRG 432 ==
LOC: D.ER 06:13 → D.M2 09:55
PROVIDERS: Emergency Medicine; Family Medicine; ADMIT Family Medicine
PROC: 0T9B70Z Drainage of Bladder with Drainage Device, Via Natural or Artificial Opening (ICD-10-PCS; principal; 2016-04-09)
DX: K70.40 Alcoholic hepatic failure without coma (principal); K85.90 Acute pancreatitis without necrosis or infection, unspecified; J96.01 Acute respiratory failure with hypoxia; J69.0 Pneumonitis due to inhalation of food and vomit; E87.1 Hypo-osmolality and hyponatremia; K56.7 Ileus, unspecified; K86.1 Other chronic pancreatitis; J44.1 Chronic obstructive pulmonary disease with (acute) exacerbation; J44.0 Chronic obstructive pulmonary disease with (acute) lower respiratory infection; M48.54XA Collapsed vertebra, not elsewhere classified, thoracic region, initial encounter for fracture; F10.20 Alcohol dependence, uncomplicated; E87.6 Hypokalemia; D64.9 Anemia, unspecified; E83.42 Hypomagnesemia; I10 Essential (primary) hypertension; K21.9 Gastro-esophageal reflux disease without esophagitis; G25.81 Restless legs syndrome

== ENCOUNTER 2016-07-20 09:05 | Inpatient (IN) | payer BC ==
[~2016-07-20] VITALS: Ht 170.2 cm; Wt 63.4 kg
--- NOTE | ~2016-07-20 | OP ---
PATIENT NAME: HAROLDO MITCHELL MEDICAL RECORD: [id number] :54 LOCATION:[facility] D.2303 ADMISSION DATE:07/20/16 SURGEON: ANDRES GARCIA MD DATE OF OPERATION: 08/11/2016 DATE OF OPERATION: 08/11/2016. Dr. Long Andrews has dictated the operative note. I was the operative surgeon. He was the assistant center director. This is an addendum to the operative note. Dr. Andrews was not present for the excisional debridement of the abdominal wall; however, he was present for the entire case excluding that portion of the operation. The first portion of the operation was excising portions of the skin and subcutaneous tissue as well as some fascia that were necrotic. Probably, they are necrotic from vasopressor use due to the need to keep the blood pressure up. The patient was profoundly septic. The dimensions of the debridement, including margins, measured, in a piecemeal fashion, 14.2 cm x 2.4 cm at its widest point and included skin, subcutaneous tissue as well as fascia. It was mainly the skin that appeared necrotic and dusky and I felt was not going to be viable. After prepping the patient, this was excised sharply. I excised this back to a viable bleeding margin. We then began to unpack the patient. We confirmed that all the 10 laparotomy pads and the 2 hemostat had been removed. The rest of the operation was performed by myself and by Dr. Andrews. So, one of the preoperative diagnosis should be necrosis of anterior abdominal wall that should be one of the pre and postop diagnosis that has not been included in the initial operative note dictated by Dr. Andrews. TRANSINT:[id number] Voice Confirmation ID: [id number] DOCUMENT ID: [id number] ANDRES GARCIA MD CC: RODRIGO RATLIFF MD and LONG ANDREWS MD [id number] DICTATION DATE: 08/11/165 SUPERVISOR BRIDGES AND BUILDINGS: 08/12/167 ADM IN [facility] [address] [place] [address]
--- NOTE | ~2016-07-20 | OP ---
PATIENT NAME: HAROLDO MITCHELL MEDICAL RECORD: [id number] :54 LOCATION:D.[facility] D.2303 ADMISSION DATE:07/20/16 SURGEON: SANYA GARCIA MD DATE OF OPERATION: 08/09/2016 PREOPERATIVE DIAGNOSES: 1. Peritonitis. 2. Bowel ischemia. 3. Pneumoperitoneum. POSTOPERATIVE DIAGNOSES: 1. Peritonitis. 2. Colonic necrosis with 3 areas of fecal leakage. 3. Pneumoperitoneum. 4. Diffuse soilage. PROCEDURES: 1. Emergency exploratory laparotomy. 2. Total colectomy. 3. Abdominal lavage damage. 4. Damage control closure. SURGEON: Sanya Garcia MD. LION TAMER: None. BLOOD LOSS: 100 cc. ANESTHESIA: General. COMPLICATIONS: None. The risks, possible complications and alternatives to procedure were explained to the patient. She elects to proceed. The discussion specifically included, but was not limited to, bleeding requiring emergency reoperation, infection, intestinal injury and the probability of permanent life support after the operation, the possibility of tracheostomy, possibility of intraoperative , and significant possibility of perioperative mortality. I encouraged the patient to go on hospice. She insisted that we proceed with the operation. OPERATIVE COURSE: The patient was conveyed to the operating room emergently on 08/09/2016. General anesthesia was induced by the anesthesia staff. The abdomen was sterilely prepped and draped. A generous midline incision was accomplished. The peritoneal cavity was entered sharply. I began finger dissection of the colon, off, the anterior abdominal wall of the peritoneum. Through this finger dissection, there were 3 areas where the necrotic colon had perforated and the omentum and mesentery had tried to wall this off. This involved the hepatic flexure into the areas of the transverse colon. I placed clamps over these areas and tried to control the soilage. Despite this, some soilage continued. It was obvious that I was going to need to remove the entire colon. The small bowel appeared viable. There were portion of small bowel that were stuck to one of these areas where the colon had perforated and the fecal soilage on this portion of small bowel appeared to have been several days old. OPERATIVE REPORT [id number] HAROLDO MITCHELL A window was created in the mesentery of the ileum. I stapled across the ileum with an Endo-BAM type staple utilizing a blue load. I then incised along the right white line of Toldt. I then pushed back the duodenum. I kocherized the duodenum. The duodenum was undamaged during the operation. I started taking down the mesentery of the right colon utilizing the EnSeal device. I entered the lesser sac. I excised most of the mesentery as a lot of it was involved with fecal soilage as well. I came around the greater curve of the stomach with the EnSeal device. I took down the transverse colon mesentery after mobilizing the hepatic flexure. There was very one large area of perforation near the hepatic flexure. I took down the transverse colon mesentery with the EnSeal device. I choose the distal extent of my resection to be the junction of the sigmoid colon and the rectum. A window was created here with my fingers. I stapled across the large bowel here with an Endo-BAM type stapler utilizing a blue load. I incised into the intersigmoid fossa. I incised along the left white line of Toldt. I folded the left colon medially. I took down the splenic flexure. I then took down the mesentery of the sigmoid colon and descending colon with the EnSeal device. I then completed my colectomy by taking down the retroperitoneal attachments at the splenic flexure. The colon was placed on the back table, I examined it. I then began lavaging the abdominal cavity first with normal saline and then also with half strength hydrogen peroxide. We changed our gloves. I began to examine the small bowel. The stomach appeared undamaged. The spleen appeared undamaged. I identified both ureters and both kidneys and it appeared undamaged. The duodenum appeared undamaged. The small bowel appeared undamaged except for feculent staining. I began to wipe away sequentially defect on staining on the small bowel from the ligament of Treitz to the stapled end of the ileum. I irrigated more with half strength hydrogen peroxide as well as normal saline. I irrigated extensively. I excised the falciform ligament as well as the anterior portion of the triangular ligament of the liver. The patient's vital signs remained surprisingly stable. I identified a left fallopian tube and ovary, which were undamaged during the operation. I placed a #1 Prolene suture at the apex of the divided portion of the rectum in order to identify it in the future should the anastomosis be performed. Further irrigation was performed until it was clear. There was no bleeding. The patient is going to require a second look procedure and in addition abdominal lavage. I will plan this for 48-72 hours. For this reason, the abdomen was packed. It was packed with 5 laparotomy packs as well as 2 hemostats each holding 5 of the blue strings on the laparotomy packs. Towel clips were then placed to close the skin and fascia. I then placed an Ioban over the entire abdomen. The patient was then conveyed to the intensive care unit in critical and unstable condition. TRANSINT:[id number] Voice Confirmation ID: [id number] DOCUMENT ID: [id number] OPERATIVE REPORT [id number] HAROLDO MITCHELL ROBERT MD CC: [id number] DICTATION DATE: 08/09/162030 INTERNET MARKETING CONSULTANT: 08/09/162306 ADM IN [facility] [address] [place] [address]
--- NOTE | ~2016-07-20 | PN ---
PATIENT:HAROLDO MITCHELL MEDICAL RECORD: [id number] LOCATION:D.[facility] D.230 ADMISSION DATE: 07/20/16 PROGRESS NOTE DATE OF SERVICE: 08/09/2016 This is summary of progress note from 08/07/2016, 08/08/2016 as well as 08/09/2016. I have seen the patient in the past, so as Dr. Lovell. I felt that the patient was too sick for an operation before. I was asked to see the patient as a reconsultant. The patient has a markedly distended abdomen. It is tympanitic. It is diffusely tender. The patient has undergone a recent CT scan. I reviewed the CT images. I had the CT scan performed again to investigate the mesenteric arteries They are so calcified, it is difficulty to determine whether the patient has had a stent or not. She states she has had iliac stents, but has never had a mesenteric artery stent. I spoke with Dr. Nam Meyers regarding her condition. I personally reviewed the CT images. I have personally discussed the case with Dr. Meyers as well. The patient has also undergone a small bowel follow through. It revealed a somewhat slow transit. I think the patient would do very poorly with an operation. I have given her my best evaluation of how an operation would proceed. She now has free air indicating some degree of perforation. 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 Her abdomen has remained distended and tympanitic and diffusely painful over August 07, August 08 and now August 09. I have told the patient that should she require an operation, there is a 1 in 10 chance of intraoperative mortality, there is a 50% chance of mortality in the first 3 days after the operation. I told her that she would likely require dialysis. I told her that she would be on life support likely the rest of her life that she would require a tracheostomy and gastrostomy eventually, that we may need to perform a damage control procedure. Despite all this, she wants to continue with operative therapy. Over the weekend, initially, she stated that she did not want any operation. She now states that she wants everything done and was to maintain a FULL CODE. I told her that she would likely independent LTAC facility until she dies. Despite all this, she wants to proceed with an operation and we are going to proceed with that now. The risks, possible complications and alternatives to procedure were explained to the patient at length in front of the patient's family. The patient elects to proceed despite my recommendation that she go and be admitted to hospice. Palpation aggravates. Nothing alleviates. Symptoms are severe. The patient has peritonitis with tympany and percussion peritonitis. This is a progress note addendum. For the typed portion of progress note, please see the chart. That would include the past medical, surgical history, allergies, social history, as well as current medications. REVIEW OF SYSTEMS: Positive for nausea, vomiting. Positive for pain. Positive for headache. Positive for anxiety. Positive for shortness of breath. The patient is chronically short of breath. She wears oxygen at home. PROGRESS NOTE [id number] HAROLDO MITCHELL PHYSICAL EXAMINATION: GENERAL: The patient appears acutely ill. Also appears chronically ill. The entire physical examination was performed in the presence of a female nurse. HEAD: External ears appear normal. EYES: Extraocular movements are intact. NECK: Trachea is midline. CHEST: No intercostal retractions. PULMONARY: Moderately labored, expiratory wheezing. ABDOMEN: Distended, tympanitic, diffusely tender. The abdomen is markedly distended. BACK: Mild thoracic kyphosis. PSYCHIATRIC: Anxious affect. NEUROLOGIC: Answers questions appropriately. She appears to have her mental faculties in place and I believe that she can make decisions for herself. LYMPHATIC: No lymphangitic streaking of the exposed extremities. 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 PLAN: Exploratory laparotomy, ileostomy, bowel resection, possible damage control closure. Significant chance of mortality as described above. TRANSINT:[id number] Voice Confirmation ID: [id number] DOCUMENT ID: [id number] ANDRES GARCIA MD CC: [id number] DICTATION DATE: 08/09/16 1749 GAS SCRUBBER OPERATOR: 08/10/16 0252 ADM IN [facility] [address] [place] [address]
[~2016-07-20 09:05] MED LIST changes: +ALDACTONE25 MG PO; +APAP325 MG PO; +BROVANA15 MCG/2 M INH; +CATAPRES0.1 MG PO; +CHRONULAC30 ML PO; +DULCOLAX10 MG/SUPP RC; +FLORAJEN3 CAPS460 MG PO; +IPRAT-ALBUT 0.5-3 ML UPD; +K-DUR20 MEQ PO; +LIBRIUM25 MG PO; +LIDODERM 5 %1 PATCH TRANSDERM; +MAG-OX 400 MG400 MG PO; +MILK OF MAGNESI30 ML PO; +MIRAPEX0.5 MG PO; +MUCINEX DM ER1 EAC1 PO; +NEURONTIN 300300 MG PO; +NICODERM C1 PATCH .3 TRANSDERM; +PREDNISONE10 MG PO; +PROTONIX40 MG PO; +PULMICORT0.5 MG/21 INH; +SINGULAIR10 MG PO; +THERMOTABS 1 GM1 GM PO; +VENTOLIN HFA18 GM INH; +ZOFRAN4 MG PO
[2016-07-20 09:35] LABS: HEMATOCRIT 31.9 % (36.0-48.0); HEMOGLOBIN 10.6 g/dL (12-16); MCHC 33.2 g/dL (31.0-37.0); MCV 81.2 fL (80.0-100.0); MEAN PLATELET VOLUME 8.5 fL (7.4-10.4); PLATELET COUNT 451 10x3/uL (130-400); RBC 3.93 10x6/uL (4.00-5.40); RDW 12.9 % (11.5-14.5); WBC 34.8 10x3/uL (4.8-10.8)
[2016-07-20 10:08] LABS: ALBUMIN 2.1 g/dL (3.4-5.0); BILIRUBIN - TOTAL 0.9 mg/dL (0.2-1.3); CALCIUM 8.3 mg/dL (8.5-10.1); CARBON DIOXIDE 18.3 mmol/L (21.0-32.0); CREATININE - SERUM 2.6 mg/dL (0.6-1.3); PROTEIN - SERUM 6.6 g/dL (6.4-8.2)
[2016-07-20 10:20] LABS: ANION GAP 20.7 mmol/L (8-16)
[2016-07-20 11:19] LABS: LYMPHOCYTES 16 % (15-50); MONOCYTES 13 % (2-11); NEUTROPHILS 46 % (40-80); PLATELET ESTIMATE INCREASED; ROULEAUX OCC
[2016-07-20 13:45] LABS: APPEARANCE HAZY (CLEAR); BACTERIA MODERATE /hpf (NONE SEEN); BILIRUBIN NEGATIVE (NEGATIVE); COLOR AMBER (YELLOW); EPITHELIAL CELLS 0-5 /hpf (0-5); GLUCOSE NEGATIVE (NEGATIVE); KETONE NEGATIVE (NEGATIVE); LEUKOCYTE ESTERASE TRACE (NEGATIVE); MUCUS >1+ /lpf (NONE SEEN); NITRITE NEGATIVE (NEGATIVE); PROTEIN NEGATIVE (NEGATIVE); WHITE CELLS - URINE OCC /hpf (0-5)
[2016-07-20 13:46] LABS: AMORPHOUS SEDIMENT <1+ /lpf (NONE SEEN); HYALINE CAST 0-5 /lpf (NONE SEEN)
[2016-07-20 15:01] LABS: ANION GAP 20.2 mmol/L (8-16); CALCIUM 8.9 mg/dL (8.5-10.1); CARBON DIOXIDE 21.3 mmol/L (21.0-32.0); CREATININE - SERUM 2.4 mg/dL (0.6-1.3)
[2016-07-20 15:15] LABS: POTASSIUM - SERUM 5.5 mmol/L (3.5-5.1)
[2016-07-20 15:16] LABS: HEMATOCRIT 29.7 % (36.0-48.0); HEMOGLOBIN 9.7 g/dL (12-16); MCH 26.8 pg (26.0-34.0); MCHC 32.7 g/dL (31.0-37.0); MEAN PLATELET VOLUME 8.7 fL (7.4-10.4); PLATELET COUNT 463 10x3/uL (130-400); RBC 3.62 10x6/uL (4.00-5.40); RDW 13.1 % (11.5-14.5)
[2016-07-20 15:50] LABS: LYMPHOCYTES 10 % (15-50); MONOCYTES 4 % (2-11); NEUTROPHILS 63 % (40-80); PLATELET ESTIMATE NORMAL
[2016-07-20 16:37] VITALS: BP 112/61; BMI 20.1
[2016-07-20] MEDS ORDERED: SYMBICORT 16010.2 GM INH (16:39)
--- NOTE | 2016-07-20 20:00 | NUR ---
REC'D FROM 7A-7P NURSE ON ROUNDS IN BED WITH SR UP X2 IV RESITED TO LEFT HAND WITH NS INFUSING AT 100CC'S/HR. TELM. SHOWS SR WITH HR 86. RESTING QUIETLY AT THIS TIME.
--- NOTE | 2016-07-20 21:15 | NUR ---
UP WITH HELP TO BR VOIDS WELL.
--- NOTE | 2016-07-20 22:00 | NUR ---
MEDS GIVEN PER MAR. INC STOOL COMPLETE BED BATH WITH LINENS CHANGED.
[2016-07-21] VITALS (11 sets, daily range): BP systolic 84–107; BP diastolic 51–74; Ht 170.2 cm; Wt 63.4 kg
--- NOTE | 2016-07-21 | NUR ---
EYES CLOSED RESPIRATIONS WITH EASE AND UNLABORED.
--- NOTE | 2016-07-21 04:00 | NUR ---
C/O SHORTNESS OF BREATH REPOSITIONED UP IN BED APPLIED O2 AT 2L/M PER NC.
[2016-07-21 04:57] LABS: HEMATOCRIT 31.3 % (36.0-48.0); HEMOGLOBIN 10.5 g/dL (12-16); RBC 3.92 10x6/uL (4.00-5.40)
[2016-07-21 04:58] LABS: BASOPHILS 0.2 % (0-2); EOSINOPHILS 0 % (0-7); IMMATURE GRANULOCYTES 1.6 % (0-5); LYMPHOCYTES 2.8 % (15-50); MCH 26.8 pg (26.0-34.0); MCHC 33.5 g/dL (31.0-37.0); MCV 79.8 fL (80.0-100.0); MEAN PLATELET VOLUME 8.7 fL (7.4-10.4); MONOCYTES 12.8 % (2-11); NEUTROPHILS 82.6 % (40-80); PLATELET COUNT 474 10x3/uL (130-400); RDW 13.4 % (11.5-14.5)
--- NOTE | 2016-07-21 05:00 | NUR ---
RESTING QUIETLY DENIES NEEDS.
[2016-07-21 05:33] LABS: ANION GAP 18.6 mmol/L (8-16); CALCIUM 7.9 mg/dL (8.5-10.1); CARBON DIOXIDE 20.6 mmol/L (21.0-32.0); CREATININE - SERUM 2.7 mg/dL (0.6-1.3); POTASSIUM - SERUM 5.2 mmol/L (3.5-5.1)
--- NOTE | 2016-07-21 06:51 | HP ---
PATIENT: HAROLDO MITCHELL MEDICAL RECORD: [id number] ACCOUNT: [id number] LOCATION:D.[facility] : 52 ADMISSION DATE: 07/20/16 HISTORY AND PHYSICAL EXAMINATION DATE OF ADMISSION: 07/20/2016 CHIEF COMPLAINT: Extreme fatigue and diarrhea. HISTORY OF PRESENT ILLNESS: The patient is a 66-year-old female, who presented to the Emergency Room after 1 week, decreased appetite, also has had loose stools and abdominal discomfort. PAST MEDICAL HISTORY: Significant that she has had a history of having COPD. She also had hypertension. She had cataract surgery bilaterally. She had hysterectomy at age 32. FAMILY HISTORY: Mother had leukemia. Sister of breast cancer. Father has hypertension, as well as CVA. MEDICATIONS: Include amlodipine 5 mg once a day, aspirin 81 mg once a day, Bystolic 10 mg once a day, Voltaren 75 mg p.o. b.i.d., gabapentin 300 mg p.o. q.h.s., hydroxyzine 25 mg 1 p.o. q.h.s. p.r.n. insomnia, Protonix 40 mg 1 p.o. q. day, Mirapex 0.5 mg 1 p.o. q.h.s., spironolactone 25 mg once a day, tramadol 50 mg 1 every 6 hours p.r.n. pain., Ventolin inhaler 90 mcg 2 puffs q.4 hours p.r.n. shortness of breath. ALLERGIES: SHE HAS ALLERGIES TO PENICILLIN. SOCIAL HISTORY: The patient is a current smoker, smoking 1 pack per day. She has been an alcoholic most of her adult life, she had stopped over 2 months ago. SOCIAL HISTORY: The patient is a . REVIEW OF SYSTEMS: CONSTITUTIONAL: She denies any headaches, seizure or syncope. She denies change in visual or auditory acuity. PULMONARY: She denies any shortness of breath, cough or congestion, history of TB, asthma or bronchitis. CARDIOVASCULAR: No chest pain, palpitation, PND or orthopnea. GASTROINTESTINAL: No chronic nausea, vomiting, melena or hematochezia. GENITOURINARY: No urgency, frequency, or dysuria. PHYSICAL EXAMINATION: VITAL SIGNS: The patient presented to the Emergency Room, she was afebrile, her pulse was 92, respirations 18, blood pressure 112/61 and pulse ox 98%. GENERAL: She is alert and oriented times 3. The patient is somewhat pale in color in no acute distress. She is alert and oriented times 3. HEENT: Head is normocephalic. No lesions. Ears: TMs clear. Eyes: Pupils are equal, round and reactive to light. Extraocular movements intact. Nasal cavity, oral cavity and oropharynx clear. NECK: Supple. There is no adenopathy. HEART: Has regular rhythm. No murmurs, gallops or rubs. LUNGS: Clear. ABDOMEN: Somewhat distended. Bowel sounds are hypoactive. She has some left HISTORY AND PHYSICAL [id number] STEPHEN,HAROLDO L lower quadrant tenderness. LABORATORY DATA: Initially, the patient presented with 34.8 thousand white count, hemoglobin 10.6, hematocrit 31.9 and her platelets 451. Sodium was 130, potassium 5.5, chloride is 94, BUN is 53, creatinine is 2.1 and blood sugar was 45. Urinalysis today shows moderate bacteria, otherwise unremarkable. Initially, the patient had a pH 7.265, pCO2 was 31.2, pO2 of 75, O2 sat was 92.9. DIAGNOSTIC DATA: The patient had a chest x-ray. Chest x-ray showed mild right basilar atelectasis noted. The patient had abdominal pelvic CT scan, which did reveal findings consistent in the descending colon of colitis. Differential included inflammatory, infectious or less likely ischemic colitis. It was recommended clinical correlation. Patient was noted to have atherosclerotic disease involving the aorta as well as iliacs and moderate amount of fecal distention in the distal colon despite history of diarrhea. No evidence of bowel obstruction was seen. ASSESSMENT: Hyponatremia, abdominal pain, colitis, acute renal failure secondary to dehydration and acute hyperkalemia. PLAN: The patient is admitted, electrolyte correction will be performed. The patient will be placed on normal saline at 100 cc an hour, also placed on Levaquin 250 IV q.24 hours, Flagyl 500 mg IV q.8 hours. We will repeat KUB in the a.m. The patient will also be given a Dulcolax suppository as well as Kayexalate. We will repeat labs in a.m. Also, the patient have urine cultures as well as blood cultures. TRANSINT:[id number] Voice Confirmation ID: [id number] DOCUMENT ID: [id number] RODRIGO RATLIFF MD at 0651 CC: [id number] DICTATION DATE: 07/20/161730 CAR CUSTOMIZER: 07/20/16 1857 ADM IN [facility] [address] [place] [id number]
--- NOTE | 2016-07-21 07:20 | NUR ---
REPORT RECEIVED FROM OIM CONSULTANT NURSE. CALL LIGHT IN REACH.
--- NOTE | 2016-07-21 08:24 | NUR ---
AM MEDS ADMINISTERED. REFUSES NICOTINE PATCH AT THIS TIME. CALL LIGHT IN REACH.
--- NOTE | 2016-07-21 08:31 | NUR ---
C/O ANXIETY. ATARAX PO. RT IN ROOM TO DO BREATHING TREATMENT.
--- NOTE | 2016-07-21 08:38 | NUR ---
PT COMPLAINTS OF NOT BEING ABLE TO MOVE AIR IN HER LUNGS. OXYGEN AT 2LNC WITH SAT OF 88%. OXYGEN TURNED TO 2.5 L WITH SAT OF 89%. HISTORY OF COPD. OXYGEN TURNED TO 3LNC WITH SAT OF 90-91%. RECENTLY HAD UPD TX. RESP PAGED AND TO ROOM TO HELP WITH SATS.
--- NOTE | 2016-07-21 10:46 | NUR ---
SPOKE WITH ZINA SMITH, AT DR. RAYO'S OFFICE ABOUT PATIENT'S REQUEST FOR MORE ANXIETY.
--- NOTE | 2016-07-21 11:15 | NUR ---
DEMETRIS WILLISP PER C/O ANXIETY. DR. NOBLE IN ROOM TO SEE PATIENT. NEW ORDERS RECEIVED.
--- NOTE | 2016-07-21 12:30 | NUR ---
16 FR PELAYO CATH INSERTED USING STERILE TECHNIQUE WITH 200 CC DARK URINE.
--- NOTE | 2016-07-21 14:19 | NUR ---
NGT PLACED TO RIGHT NARE PER CRISTINA SMITH.
--- NOTE | 2016-07-21 14:29 | NUR ---
SCDs APPLIED TO BLE.
--- NOTE | 2016-07-21 16:25 | NUR ---
SOLUMEDROL AND CEFEPIME IV PER ORDER. IV FLUIDS CHANGED PER ORDER.
--- NOTE | 2016-07-21 19:00 | NUR ---
Received patient awake in bed, Assessment completed per flowsheet. Patient disoriented to time/location, calm and cooperative. Eyes PERRLA @ 3mm with brisk response, sclera is white. NGT noted R Nare, connected to LIWS with yellow/green drainage. S1/S2 noted with Patient NSR on telemetry with HR 97, rhythmic and regular. Breathing is shallow/short of breath on 3L via NC, Crackles noted bilateral upper with diminished lower. Abdomen is slightly distended and firm, Bowel sounds Hypoactive x4. Boss secured in place with dark yellow/brown urine noted in collection. Full ROM all extremities with all pulses weakly palpable, Cap refill < 3 sec. 20g PIV noted R FA/AC, patent with fluids infusing. Patient denies pain or other needs at this time, All VSS and will continue to monitor.
--- NOTE | 2016-07-21 19:20 | NUR ---
1720-REC'D PT TO ICU, VSS, 90/56, HR 106, PT CONFUSED TO PLACE AND TIME. ALL CDP EQUIPMENT ATTTACHED, ALARMS ON.
--- NOTE | 2016-07-21 22:49 | NUR ---
Reassesement completed per flowsheet, patient resting in bed with eyes open watching TV. Patient disoriented to Time/Place, calm and cooperative. S1/S2 noted with Sinus Tach on telemetry with HR 108, rhythmic and regular. Breathing is shallow and slightly short of breath on 3L via NC, O@ sat 99%. Lung sounds clear upper with expiratory wheeze noted mid and diminished lower. Patient denies pain or other needs at this time, all VSS and will continue to monitor.
[2016-07-22] VITALS (24 sets, daily range): BP systolic 85–137; BP diastolic 34–86
--- NOTE | 2016-07-22 01:00 | NUR ---
Patient resting in bed with eyes closed, breathing is shallow and unlabored. Patient denies pain or other needs at this time, all VSS and will continue to monitor.
--- NOTE | 2016-07-22 02:48 | NUR ---
Reassessment completed per flowsheet, patient resting in bed with eyes closed. S1/S2 noted with patient Sinus Tach on telemetry with HR 105, rhythmic and regular. Breathing is slightly shallow and unlabored on 3L via NC, O2 sat 97%. Lung sounds clear bilateral upper, expiratory wheeze noted mid with diminished lower lobes. Patient denies pain or other needs at this time, all VSS and will continue to monitor.
--- NOTE | 2016-07-22 04:59 | NUR ---
Patient states having hallucinations, says they have been occurring "for a while now". Displays signs of slight agitation and wants NGT removed "as soon as possible". Reoriented and repositioned to assist in relaxing, patient states some relief and returned to resting. Will continue to monitor.
[2016-07-22 05:23] LABS: BASOPHILS 0.1 % (0-2); EOSINOPHILS 0 % (0-7); HEMATOCRIT 28.8 % (36.0-48.0); HEMOGLOBIN 9.7 g/dL (12-16); IMMATURE GRANULOCYTES 0.8 % (0-5); LYMPHOCYTES 2.1 % (15-50); MCH 26.6 pg (26.0-34.0); MCHC 33.7 g/dL (31.0-37.0); MCV 78.9 fL (80.0-100.0); MEAN PLATELET VOLUME 8.9 fL (7.4-10.4); MONOCYTES 6.2 % (2-11); NEUTROPHILS 90.8 % (40-80); PLATELET COUNT 414 10x3/uL (130-400); RBC 3.65 10x6/uL (4.00-5.40); RDW 13.3 % (11.5-14.5); WBC 24.9 10x3/uL (4.8-10.8)
[2016-07-22 05:28] LABS: INR 1.47 (0.85-1.17); PROTIME 17.8 SECONDS (11.6-15.0)
[2016-07-22 05:35] LABS: ALBUMIN 1.7 g/dL (3.4-5.0); ANION GAP 18.9 mmol/L (8-16); BILIRUBIN - TOTAL 0.63 mg/dL (0.2-1.3); CALCIUM 7.1 mg/dL (8.5-10.1); CARBON DIOXIDE 22.9 mmol/L (21.0-32.0); CREATININE - SERUM 3.3 mg/dL (0.6-1.3); MAGNESIUM - SERUM 1.9 mg/dL (1.8-2.4); POTASSIUM - SERUM 5.8 mmol/L (3.5-5.1); PROTEIN - SERUM 5.4 g/dL (6.4-8.2)
--- NOTE | 2016-07-22 10:23 | NUR ---
NUTRITION MONITORING & EVAL CHART REVIEWED. PT NOW IN ICU. CLEAR LIQUID DIET BUT NOT ABLE TO TAKE PO AT THIS TIME PER NURSING REPORT. RD FOLLOWING
[2016-07-22 15:49] LABS: ANION GAP 14.8 mmol/L (8-16); CARBON DIOXIDE 24.9 mmol/L (21.0-32.0); CREATININE - SERUM 2.9 mg/dL (0.6-1.3); POTASSIUM - SERUM 4.7 mmol/L (3.5-5.1)
[2016-07-22 15:53] LABS: CALCIUM 6.9 mg/dL (8.5-10.1)
--- NOTE | 2016-07-22 19:00 | NUR ---
ASSESSMENT COMPLETED. SEE FLOW SHEETS FOR ALL FINDINGS. PT C/O DIFFIC. BREATHING AND ANXIOUS. RT AT BEDSIDE. ABG'S DONE. DR CHATMAN NOTED OF PT'S CONDITION. ORDERS RECIEVED. WILL CONT TO MONITOR.
[2016-07-22 19:56] LABS: HEMOGLOBIN 8.9 g/dL (12-16)
--- NOTE | 2016-07-22 21:00 | NUR ---
FAMILY AT BEDSIDE. UPDATED AND QUESTIONS ANSWERED.
--- NOTE | 2016-07-22 23:00 | NUR ---
REASSESSMENT COMPLETED. SEE FLOW SHEETS FOR ALL FINDINGS. ST ON MONITOR. NO ACUTE SINGS OF DISTRESS AT THIS TIME. REPOSITIONED FOR COMFORT. PILLOWS IN USE FOR SUPPORT. HOB UP. SIDE RAILS UP. CALL LIGHT IN REACH. WILL CONT TO MONITOR.
[2016-07-23] VITALS (28 sets, daily range): BP systolic 99–146; BP diastolic 55–85
--- NOTE | 2016-07-23 01:00 | NUR ---
PT RESTING QUIELTY WITHOUT DISTRESS. VSS. NO ACUTE CHANGES NOTED ON PT'S CONDITION. REPOSITIONED FOR COMFORT. PILLOWS IN USE FOR SPPORT. CALL LIGHT IN REACH. CPOC.
--- NOTE | 2016-07-23 03:00 | NUR ---
REASSESSMENT COMPLETED PER FLOW SHEETS. PT ANXIOUS ON BED, REQUESTED MED FOR ANXIETY. ATIVAN 0.5MG IVP GIVEN PER ORDER. REPOSITIONED FOR COMFORT. PILLOWS IN USE FOR SUPPORT. HEELS ELEVATED. HOB UP. SIDE RAILS UP X2. CALL LIGHT IN REACH. CPOC.
[2016-07-23 03:34] LABS: BASOPHILS 0.1 % (0-2); EOSINOPHILS 0.1 % (0-7); HEMATOCRIT 23.8 % (36.0-48.0); HEMOGLOBIN 8.2 g/dL (12-16); IMMATURE GRANULOCYTES 1.2 % (0-5); LYMPHOCYTES 1.8 % (15-50); MCH 26.5 pg (26.0-34.0); MCHC 34.5 g/dL (31.0-37.0); MEAN PLATELET VOLUME 8.5 fL (7.4-10.4); MONOCYTES 5.9 % (2-11); NEUTROPHILS 90.9 % (40-80); RBC 3.09 10x6/uL (4.00-5.40); RDW 13.2 % (11.5-14.5)
[2016-07-23 03:35] LABS: PLATELET COUNT 324 10x3/uL (130-400)
[2016-07-23 03:55] LABS: ALBUMIN 2.5 g/dL (3.4-5.0); BILIRUBIN - TOTAL 0.78 mg/dL (0.2-1.3); CALCIUM 7.3 mg/dL (8.5-10.1); CARBON DIOXIDE 28.5 mmol/L (21.0-32.0); CREATININE - SERUM 2.1 mg/dL (0.6-1.3); POTASSIUM - SERUM 3.5 mmol/L (3.5-5.1); PROTEIN - SERUM 5.8 g/dL (6.4-8.2)
--- NOTE | 2016-07-23 17:21 | NUR ---
0700 ASSESSMENT COMPLETE. NO CO AT TIME.
--- NOTE | 2016-07-23 17:37 | NUR ---
1200 SISTERINLAW AT BEDSIDE. NO CO AT TIME.
--- NOTE | 2016-07-23 17:37 | NUR ---
1530 CONSENT FOR PRBCS INFUSING.
--- NOTE | 2016-07-23 19:00 | NUR ---
Report received from Alice EVANS. Pt confused and lying down in bed with respirations shallow with Oximizer in hand. SPO2 monitor off patient ear. Pt pulled up in bed and repositioned to 45degrees with Oximizer secured. Pt receiving O2 @ 13L Oximizer. Current SPO2 88% and rising to 93%. Respirations remain shallow and unlabored. Lung sounds present fine crackles to all toro with diminished lower lobes. HR ST with occasional PVCs noted. S1S2 auscultated. All peripheral pulses +2 with capillary refill <3 seconds. NO edema noted. Pt right hand 22g PIV site CDI no s/s infection or infiltration with Levaquin ABx infusing and maintenance fluid NS + 20mEq KCl @ 20cc/hr. Right nare NGT secure to LIWS retrieving liquid, light brown gastric content. ABdomen firm and very distended with BS absent to all quadrants. Abdomen dull to percussion. Pt denies pain with palpation. Boss catheter secure retrieving concentrated, elver urine. Temp 98.9F temporally. Call light and bedside table placed within pt reach. Linens clean/dry. Washcloth moistened per pt request. Pt denies current pain. iPad attached to microstrategy bi developer per request. CPOC.
--- NOTE | 2016-07-23 21:00 | NUR ---
Pt omzqga-ca-atx here with update given and questions addressed. VSS. Pt helped to reposition to right side. HOB remains @ 45 degrees. oral water swabs provided. CPOC.
--- NOTE | 2016-07-23 22:00 | NUR ---
20g PIV started to right A/C x1 stick for PRBC administration.
--- NOTE | 2016-07-23 22:15 | NUR ---
PRBC unit #[id number] double checked with Rex EVANS. Blood consent form located in pt chart. Pt explained to s/s trx rxn. VSS and recorded to trx slip. Infusion initiated to right A/C 20g PIV site CDI.
--- NOTE | 2016-07-23 23:00 | NUR ---
Reassessment complete. See flowsheet. Pt agitated and threating to remove O2 and IV sites. Pt calmed. Ativan administered PRN see MAR. Pt oriented to person only at this time. Pupils size 3 bilaterally ERRLA. O2 @ 13L Oximizer. Lung sounds continue to present crackles to all toro with diminished lower lobes. HR SR with S1S2 auscultated. All Peripheral pulses +2 with capillary refill <3 seconds. PIV sites CDI with NO IVF changes to note. Abdomen firm/distended with BS absent to all quadrants. Right nare NGT remains secure to LIWS. Boss secure retrieving concentrated, elver urine. PRBCs infusing with no s/s trx rxn. Pt denies pain at this time. Pt repositioned to back with HOB lowered to 30 degrees per request. Arms and heels bridged. No other changes to note. Call light and bedside table remain within pt reach. CPOC.
--- NOTE | 2016-07-23 23:00 | NUR ---
Ativan 0.5MG IVP administered for agitation. See MAR.
[2016-07-24] VITALS (24 sets, daily range): BP systolic 122–175; BP diastolic 58–88
--- NOTE | 2016-07-24 01:00 | NUR ---
PRBC infusion completed. VSS and recorded to trx slip. PIV to right A/C saline locked. Pt resting and allowed to continue resting undisturbed. Call light and bedside table remain within reach. CPOC.
--- NOTE | 2016-07-24 02:45 | NUR ---
Pt awake and screaming while removing oximizer, perez catheter and SCDs. Pt hitting at staff and screaming "you son of a bitch, get my dog!". Bilat soft wrist restraints applied. 16fr perez catheter placed with clear/yellow urine return. SCDs reapplied. Pt repositioned to left side. HOB @ 30 degrees. Oximizer secure @ 13L with SPO2 92%.
--- NOTE | 2016-07-24 03:00 | NUR ---
Reassessment complete. See flowsheet. Pt remains awake and encouraged to cough with thick, white sputum retrieved. O2 increased to 15L oximizer. Lung sounds present crackles to all toro with diminished lower lobes. Pt remains agitated and attempting to reach for perez catheter and very uncooperative. Bilat soft wrist restraints secure. HR ST 110 with S1S2 auscultated. All peripheral pulses remain +2 with capillary refill <3 seconds. PIV sites remain CDI with NO IVF changes to note. BS remain absent to all quadrants. Perez catheter secure with clear/yellow urine. SCDs secure. Pt repositioned to back with HOB @ 45 degrees. Arms and heels bridged.
--- NOTE | 2016-07-24 03:59 | NUR ---
Pt cough wet and nonproductive at this time. SPO2 88-90% on 15L oximizer. Pt encouraged to deep breathe and cough with no sputum production. Stat ABG requested.
--- NOTE | 2016-07-24 04:10 | NUR ---
ABG unremarkable. K+ 2.9 and will contact physician regarding critical lab value. SPO2 now reading 95%.
--- NOTE | 2016-07-24 05:00 | NUR ---
Pt pulled up in bed and repositioned to right side. HOB @ 30 degrees. Heels and arms rebridged. Bilat soft wrist restraints resecured.
[2016-07-24 05:23] LABS: WBC 22.2 10x3/uL (4.8-10.8)
[2016-07-24 05:24] LABS: BASOPHILS 0.1 % (0-2); EOSINOPHILS 0 % (0-7); HEMATOCRIT 31.3 % (36.0-48.0); HEMOGLOBIN 10.5 g/dL (12-16); IMMATURE GRANULOCYTES 1.1 % (0-5); LYMPHOCYTES 4.6 % (15-50); MCH 25.7 pg (26.0-34.0); MCHC 33.5 g/dL (31.0-37.0); MCV 76.7 fL (80.0-100.0); MEAN PLATELET VOLUME 9.1 fL (7.4-10.4); MONOCYTES 5.7 % (2-11); NEUTROPHILS 88.5 % (40-80); PLATELET COUNT 293 10x3/uL (130-400); RBC 4.08 10x6/uL (4.00-5.40); RDW 14.9 % (11.5-14.5)
--- NOTE | 2016-07-24 05:54 | NUR ---
NGT removed and replaced and connected to LIWS.
[2016-07-24 06:14] LABS: BILIRUBIN - DIRECT 0.55 mg/dL (0.00-0.30); BILIRUBIN - INDIRECT 1.18 mg/dL (0.00-1.00); BILIRUBIN - TOTAL 1.73 mg/dL (0.2-1.3); CALCIUM 8.1 mg/dL (8.5-10.1); CREATININE - SERUM 1.2 mg/dL (0.6-1.3); MAGNESIUM - SERUM 1.7 mg/dL (1.8-2.4); PHOSPHOROUS 4.3 mg/dL (2.5-4.9); PROTEIN - SERUM 6.4 g/dL (6.4-8.2)
[2016-07-24 06:25] LABS: CARBON DIOXIDE 33.8 mmol/L (21.0-32.0)
[2016-07-24 06:26] LABS: ANION GAP 8.9 mmol/L (8-16)
--- NOTE | 2016-07-24 07:30 | NUR ---
REC'D REPORT FROM OUTGOING RN - PT RESTING WITH EYES CLOSED - RESPIRATIONS REG RATE AND RHYTHM CPOC
--- NOTE | 2016-07-24 08:00 | NUR ---
DR. VELAZQUEZ ON UNIT - DISCUSSED [facility] RX CAUSES INCREASED CONFUSION - MD ORDERED TO D/C AND TO GIVE VALIUM 2MG EVERY 8 HOURS MAY INCREASE TIME TO EVERY 4 HOURS IF NEEDED - FOR AGRESSION AND ANXIETY - INFORMED MD - PT HAS PULLED OUT HER 3RD PELAYO, PT HAS PULLED OUT HER 4TH NG TUBE - MD STATED TO HOLD PLACING PELAYO AND NG TUBE AT THIS TIME - CPOC
--- NOTE | 2016-07-24 09:15 | NUR ---
BATHED PT - CHANGED LINENS AND BED CLOTHING - PT CONTINUES TO BE CONFUSED - PT RESTING WITH EYES CLOSED - FAMILY AT BEDSIDE - DR. Galan SPOKE TO BROTHER AND SISTER IN LAW R/T PLAN OF CARE - AWAITING ORDERS.
--- NOTE | 2016-07-24 12:00 | NUR ---
PT CONTINUES TO PULL AT LINES - TAKING OFF OXYMIZER - O2 DESAT TO 70s% PER POX - VALIUM GIVEN TO PT FOR DECREASED AGRESSION. PT RESTING WITH EYES CLOSED, RESPIRATIONS REG, RATE, AND RHTHYM. CPOC
--- NOTE | 2016-07-24 16:26 | NUR ---
RESITED IV 20 MATTHEW LEFT FORE ARM - SL - BATHED PT - CHANGED ALL LINENS AND BED CLOTHING - CPOC -
--- NOTE | 2016-07-24 17:10 | NUR ---
PAGED DR. REED - INFORMED OF 3.0 POTSSIUM LAB AFTER FOUR EACH K+ 10MEW RIDERS WERE GIVEN. - REC'D ORDERS TO PLACE PT ON ELECTROLYTE PROTOCOL - REVIEWED REPLACEING NG TUBE TO SUCTION - PT OUTPUT APPROX 400ML - PT IS NOT VOMITING, ETC. STATED TO HOLD NG TUBE UNLESS PT STARTS TO VOMIT. CONT POC
--- NOTE | 2016-07-24 17:15 | NUR ---
CALLED DR. Galan R/T ELECTROLYTE PROTOCOL ORDERS NEEDED - MD ORDERED 10MEQ GIVEN OVER ONE HOUR X 4 IF POTASSIUM BELOW 3.6 - TOV - CALLED PHARMACY TO RELEASE RX - UNABLE TO REACH PT - PAGED PICK REMOVER TO OVER-RIDE PYXIS - VERIFIED ORDER WITH PICK REMOVER - CPOC
--- NOTE | 2016-07-24 18:02 | NUR ---
BATHED PT - CHANGED BED LINENS AND BED CLOTHES - PT MORE ALERT BUT STILL CONFUSED - CPOC
--- NOTE | 2016-07-24 18:21 | NUR ---
PT WITH INCREASED CONFUSION - ATTEMPTING TO GET OOB TO GO TO HER DECK - PT UNWILLING TO BE SAFE - VALIUM GIVEN PRN PER MAR - CPOC
--- NOTE | 2016-07-24 19:00 | NUR ---
Assessment complete. See flowsheet. Pt awake and confused and screaming "here logan logan!" loudly. Pt oriented to person only and asks for a coke and to get to her porch. Pt reorientation attempted and failed. Pupils size 3 bilaterally ERRL. Pt moving all extremities with 5/5 strength. Left forearm PIV site infiltrated and IVF removed. Right hand 22g PIV site cleaned and redressed with no s/s infection or infiltration with IVF moved to site NS + 20mEq KCL infusing @ 20cc/hr with ABx and KCL riders. Respirations shallow with Oximizer @ 15L. SPO2 93%. Lung sounds present coarse crackles to all toro with diminished lower lobes. HR ST 110BPM with S1S2 auscultated. All peripheral pulses +2 with capillary refill <3 seconds. Abdomen firm and distended with BS hypoactive to all quadrants. Pt pulled up in bed and positioned to left side. HOB @ 30 degrees with arms and heels bridged. Bilat soft wrist restraints resecured. SCDs secured bilaterally. Oral care completed. 99.0F temporally. Pain denied. Right forearm coban secure over skin tear site. CPOC.
--- NOTE | 2016-07-24 19:31 | NUR ---
REPORT GIVEN TO ONCOMING RN -
--- NOTE | 2016-07-24 21:00 | NUR ---
Pt [id number] here with update given and questions addressed. Pt removing oximizer and restraints repositioned and secured after arms rebridged and pt repositioned to right side. HOB remains @ 30 degrees.
--- NOTE | 2016-07-24 23:00 | NUR ---
Reassessment complete. See flowsheet. Pt calm at this time and incontinent of large amt concentrated, elver urine. Chlorhexidine bed bath with gown and linen changes completed. Coban applied to bilateral forearms for small weeping skin tears. Right hand PIV site leaking with infusion and discontined. New 22g PIV site initiated to right lateral AC site with IVF moved to site and infusing. O2 remains @ 15L oximizer. Pt remains oriented to person only. Lung sounds continue to present coarse crackles to all toro with diminished lower lobes. HR SR. S1S2 auscultated. All peripheral pulses +2 with capillary refill <3 seconds. BS remain hypoactive to all quadrants. Boss catheter 16fr placed utilizing sterile technique with 350cc elver urine retrieved upon insertion. Pt pulled up in bed and positioned to back with HOB @ 30 degrees and arms/heels briged. Bilat SCDs resecured. Bilat soft wrist restraints resecured. SPO2 95%. Pt now resting. CPOC.
[2016-07-25] VITALS (21 sets, daily range): BP systolic 140–167; BP diastolic 63–86
--- NOTE | 2016-07-25 00:57 | NUR ---
Pt screaming "let me out" and pulling off EKG leads and oxygen. Pt calmed and repositioned. Valium 5mg IV administered for agitation. See MAR.
--- NOTE | 2016-07-25 01:20 | NUR ---
Pt resting quietly with VSS.
--- NOTE | 2016-07-25 03:00 | NUR ---
Reassessment complete. See flowsheet. Pt talking quietly while resting with no s/s pain or distress. Respirations remain shallow and unlabored. O2 @ 15L Oximizer. Lung sounds continue to present crackles to all toro with diminished lower lobes. HR SR with S1S2 auscultated. All peripheral pulses remain +2 with capillary refill <3 seconds. Right A/C PIV site CDI with NO IVF changes to note. BS remain hypoactive to all quadrants. Abdomen firm/distended. Boss catheter secure retrieving concentrated, elver urine. Pt repositioned in bed to back with HOB @ 30 degrees for AM CXR. Arms and heels remain bridged. Linens clean/dry. Bilat soft wrist restraints secure. No other changes to note. CPOC.
[2016-07-25 04:09] LABS: BASOPHILS 0.2 % (0-2); EOSINOPHILS 0 % (0-7); HEMATOCRIT 32.6 % (36.0-48.0); HEMOGLOBIN 10.5 g/dL (12-16); IMMATURE GRANULOCYTES 1.3 % (0-5); LYMPHOCYTES 6.1 % (15-50); MCH 25.8 pg (26.0-34.0); MCHC 32.2 g/dL (31.0-37.0); MCV 80.1 fL (80.0-100.0); MEAN PLATELET VOLUME 9.1 fL (7.4-10.4); MONOCYTES 4.7 % (2-11); NEUTROPHILS 87.7 % (40-80); PLATELET COUNT 246 10x3/uL (130-400); RBC 4.07 10x6/uL (4.00-5.40); RDW 15.4 % (11.5-14.5)
[2016-07-25 04:22] LABS: ALBUMIN 3.5 g/dL (3.4-5.0); ANION GAP 9.7 mmol/L (8-16); BILIRUBIN - TOTAL 1.18 mg/dL (0.2-1.3); CALCIUM 8.6 mg/dL (8.5-10.1); CARBON DIOXIDE 37.6 mmol/L (21.0-32.0); CREATININE - SERUM 0.9 mg/dL (0.6-1.3); POTASSIUM - SERUM 3.3 mmol/L (3.5-5.1); PROTEIN - SERUM 6.6 g/dL (6.4-8.2)
--- NOTE | 2016-07-25 05:00 | NUR ---
Pt repositioned to right side and continues to talk to self with eyes closed. VSS.
--- NOTE | 2016-07-25 15:23 | NUR ---
AT 1430 CHANGED PATIENT TO VAPOTHERM @40L, 100% FOR LOW SPO2. PER DR. CUTLER.
--- NOTE | 2016-07-25 19:20 | NUR ---
Assessment complete. See flowsheet. Pt awake and sitting up in bed with HOB @ 40 degrees. Vapotherm secure @ 40L/100% FiO2 with SPO2 96%. Pt respirations shallow/unlabored. Pt confused and combative with readjustment of SPO2 monitor to left ear and attempts to bite. Pt reorientation attempted; remains oriented to person only. Pupils size 3 bilaterally ERRL. Lung sounds present fine crackles to all toro that do not clear with cough and diminished lower lobes. HR SR with S1S2 auscultated. All peripheral pulses +2 with capillary refill <3 seconds. Right A/C PIV CDI no s/s infection or infiltration with D5W + 20meq KCL infusing @ 20cc/hr and rate increased to ordered rate of 75cc/hr. See MAY. Left foot 20g PIV site CDI; saline locked with no s/s infection. Abdomen firm and distended; tympanic to percussion with BS hypoactive to all quadrants. Boss catheter secure and retrieving concentrated, elver urine. Temp 99.1F temporally. SCDs secure bilaterally. Forearm coban dressings secure over skin tears. Pt repositioned to left side. HOB remains @ 40 degrees. Arms and heels bridged. Bilat soft wrist restraints secured. NO s/s pain or distress at this time. Pt helped with small sips of ice water. CPOC.
--- NOTE | 2016-07-25 21:20 | NUR ---
PM medications administered with sips of ice water. Pt tolerating well. VSS. Pt repositioned to right side. HOB @ 40 degrees. No other changes to note.
--- NOTE | 2016-07-25 23:20 | NUR ---
Reassessment complete. See flowsheet. Pt resting and allowed to continue resting undisturbed for lack of sleep and pt exhaustion. Vapotherm remains secure with no setting changes to note. Respirations shallow and unlabored. SPO2 98%. Lung sounds present fine crackles with inspiration to all toro with diminished lower lobes. HR SR. S1S2 auscultated. All peripheral pulses +2 with capillary refill <3 seconds. PIV site remains CDI; unchanged with no IVF changes to note. BS hypoactive to all quadrants. Boss secure. Pt self-positioned to back. HOB @ 40 degrees. Arms and heels remain bridged. Bilat soft wrist restraints secure. CPOC.
[2016-07-26] VITALS (24 sets, daily range): BP systolic 120–166; BP diastolic 62–86
--- NOTE | 2016-07-26 01:20 | NUR ---
Pt repositioned to left side. HOB @ 30 degrees. VSS. No changes. Pt resting.
--- NOTE | 2016-07-26 03:20 | NUR ---
Reassessment complete. See flowsheet. Pt resting and awakens upon entrance into room with no neuro changes to note. Pt helped with sips of water per request. O2 remains @ 40L Vapotherm 100% FIO2. Lung sounds present fine crackles to all toro. HR SR with S1S2 auscultated. All peripheral pulses +2 with capillary refill <3 seconds. PIV site CDI with NO IVF changes to note. Abdomen remains firm and distended with BS hypoactive to all quadrants. Boss catheter secure retrieving concentrated, elver urine. Pt pulled up in bed and repositioned to back for AM CXR. HOB @ 30 degrees. Arms and heels rebridged. Bilat soft wrist restraints resecured. CPOC.
[2016-07-26 04:47] LABS: BASOPHILS 0.2 % (0-2); EOSINOPHILS 0 % (0-7); HEMATOCRIT 32.5 % (36.0-48.0); HEMOGLOBIN 10.4 g/dL (12-16); IMMATURE GRANULOCYTES 0.6 % (0-5); LYMPHOCYTES 4.3 % (15-50); MCH 26.1 pg (26.0-34.0); MCV 81.5 fL (80.0-100.0); MEAN PLATELET VOLUME 9.4 fL (7.4-10.4); MONOCYTES 4.2 % (2-11); NEUTROPHILS 90.7 % (40-80); PLATELET COUNT 224 10x3/uL (130-400); RBC 3.99 10x6/uL (4.00-5.40); RDW 15.6 % (11.5-14.5)
--- NOTE | 2016-07-26 05:20 | NUR ---
Pt positioned to right side. HOB @ 30 degrees. Pt continues to rest after briefly awakening. Arms and heels bridged. Linens remain clean/dry. VSS. CPOC.
[2016-07-26 05:21] LABS: ALBUMIN 3.3 g/dL (3.4-5.0); ALKALINE PHOSPHATASE 58 U/L (46-116); ALT (SGPT) 24 U/L (10-68); CALC OSMOLALITY 288 mosm/kg (275-300); CALCIUM 7.9 mg/dL (8.5-10.1); CARBON DIOXIDE 37.3 mmol/L (21.0-32.0); CHLORIDE - SERUM 101 mmol/L (98-107); CREATININE - SERUM 0.8 mg/dL (0.6-1.3); GLUCOSE 160 mg/dL (74-106); MAGNESIUM - SERUM 1.1 mg/dL (1.8-2.4); PROTEIN - SERUM 6.2 g/dL (6.4-8.2); SODIUM 139 mmol/L (136-145); UREA NITROGEN 34 mg/dL (7-18); eGFR NON AFRICAN AMERICAN 76 mL/min (90-120)
[2016-07-26 05:44] LABS: POTASSIUM - SERUM 2.1 mmol/L (3.5-5.1)
--- NOTE | 2016-07-26 05:52 | NUR ---
Dr. Ovalle paged for K+ 2.1 this AM
--- NOTE | 2016-07-26 06:00 | NUR ---
Dr. Ovalle spoken to with labs relayed and orders received. See MAR.
--- NOTE | 2016-07-26 07:20 | NUR ---
PT PULLED OUT PELAYO CATH WITH BULB INTACT. NO BLEEDING NOTED. INSTRUCTED PT TO NOT PULL AT LINES OR TUBES. SHE VOICED UNDERSTANDING.
--- NOTE | 2016-07-26 10:32 | NUR ---
Nutrition consult for TPN: Received order for TPN to begin today; however, pt does not have a CVL at this time and has only one peripheral IV access. Diet has advanced to clear liquids RDN will wait for further instructions re: nutrition support.
--- NOTE | 2016-07-26 13:10 | NUR ---
PT SET UP WITH BATH. CHANGED OUT BED LINENS. PT SPOKE WITH HER MOTHER OVER THE TELEPHONE.
[2016-07-26 13:42] LABS: MAGNESIUM - SERUM 1.9 mg/dL (1.8-2.4); POTASSIUM - SERUM 3.4 mmol/L (3.5-5.1)
--- NOTE | 2016-07-26 17:45 | NUR ---
PT INCONTINENT OF URINE. PT PASSING LOTS OF GAS. VERY SMALL SMEAR OF LIQUID BROWN STOOL NOTED. NOT ENOUGH TO SEND FOR STOOL STUDIES.
--- NOTE | 2016-07-26 18:45 | NUR ---
PT HAS MODERATE BM. LIQUID BROWN STOOL NOTED. SENT TO LAB FOR STUDIES. PT CLEANED AND WHITE PAD CHANGED.
--- NOTE | 2016-07-26 19:30 | NUR ---
REPORT RECEIVED CARE ASSUMED INITIAL SHIFT ASSESSMENT COMPLETED SEE FLOWSHEET. PT MONITORED PER STANDARD ICU PROTOCOL. IVF AND LINES ARE APPROPRIATLY DATED AND LABELED. ALL ARE CURRENT AND NOT DUE TO BE CHANGED.
--- NOTE | 2016-07-26 19:58 | NUR ---
PT HAD SMALL LIQUID BROWN STOOL. PT CLEANED AND WHITE PAD CHANGED.
[2016-07-26 20:29] LABS: CALC OSMOLALITY 289 mosm/kg (275-300); CALCIUM 8.1 mg/dL (8.5-10.1); CARBON DIOXIDE 39.2 mmol/L (21.0-32.0); CHLORIDE - SERUM 100 mmol/L (98-107); CREATININE - SERUM 0.6 mg/dL (0.6-1.3); GLUCOSE 151 mg/dL (74-106); MAGNESIUM - SERUM 1.7 mg/dL (1.8-2.4); SODIUM 140 mmol/L (136-145); UREA NITROGEN 34 mg/dL (7-18); eGFR NON AFRICAN AMERICAN > 90 mL/min (90-120)
--- NOTE | 2016-07-26 21:00 | NUR ---
NO VISITORS AT THIS TIME. MEDS ADMINISTERED RECORDED ON MAY. GIVEN WHOLE AND WITH APPLESAUCE
--- NOTE | 2016-07-26 21:50 | NUR ---
PT COMPLAINTS OF MILD ANXIETY MEDS PER MAR. SUPPORT GIVEN
--- NOTE | 2016-07-26 22:00 | NUR ---
IS TAKEN TO BEDSIDE AND PT TEACHING DONE. PT WITH FAIR EFFORT 500ML WEAK NONPRODUCTIVE COUGH
--- NOTE | 2016-07-26 22:30 | NUR ---
PT STATES ANXIETY "MUCH BETTER". PT HAS BEEN DOZING
--- NOTE | 2016-07-26 23:00 | NUR ---
SHIFT REASSESSMENT COMPLETED SEE FLOWSHEET. PT CONTINUES ON VAPOTHERM AT 40LPM 80% TOLERATING WELL O2 SAT REMAINS IN MID TO UPPER 90's BUT DESATS QUICKLY WITH ACTIVITY.
[2016-07-27] VITALS (24 sets, daily range): BP systolic 121–159; BP diastolic 61–89
--- NOTE | 2016-07-27 01:00 | NUR ---
PT RESTING WELL. SLEEPS VERY LIGHTLY AND IS EASILY AWAKEN BUT RETURNS TO SLEEP QUICKLY RESP REG AND NONLABORED WHILE SLEEPING BECOMES SOB EASILY WITH ANY ACTIVITY
--- NOTE | 2016-07-27 03:57 | NUR ---
RADIOLOGY AT BEDSIDE TO PERFORM ORDERED SCANS
--- NOTE | 2016-07-27 04:21 | NUR ---
NAVAL GUNFIRE SPOTTER AT BEDSIDE FOR AM LAB DRAW
[2016-07-27 05:05] LABS: BASOPHILS 0.1 % (0-2); EOSINOPHILS 0.1 % (0-7); HEMATOCRIT 31.6 % (36.0-48.0); IMMATURE GRANULOCYTES 0.7 % (0-5); LYMPHOCYTES 4.4 % (15-50); MCH 25.6 pg (26.0-34.0); MCHC 31.6 g/dL (31.0-37.0); MEAN PLATELET VOLUME 9.9 fL (7.4-10.4); MONOCYTES 3.9 % (2-11); NEUTROPHILS 90.8 % (40-80); PLATELET COUNT 231 10x3/uL (130-400); RDW 15.5 % (11.5-14.5); WBC 13.5 10x3/uL (4.8-10.8)
[2016-07-27 05:27] LABS: ALBUMIN 3.4 g/dL (3.4-5.0); ALKALINE PHOSPHATASE 52 U/L (46-116); ALT (SGPT) 25 U/L (10-68); BILIRUBIN - TOTAL 0.86 mg/dL (0.2-1.3); CALC OSMOLALITY 289 mosm/kg (275-300); CALCIUM 8.2 mg/dL (8.5-10.1); CARBON DIOXIDE 39.7 mmol/L (21.0-32.0); CHLORIDE - SERUM 101 mmol/L (98-107); CREATININE - SERUM 0.6 mg/dL (0.6-1.3); GLUCOSE 131 mg/dL (74-106); MAGNESIUM - SERUM 1.5 mg/dL (1.8-2.4); PHOSPHOROUS 2.5 mg/dL (2.5-4.9); SODIUM 141 mmol/L (136-145); UREA NITROGEN 31 mg/dL (7-18); eGFR NON AFRICAN AMERICAN > 90 mL/min (90-120)
[2016-07-27 05:39] LABS: POTASSIUM - SERUM 2.8 mmol/L (3.5-5.1)
--- NOTE | 2016-07-27 06:00 | NUR ---
VISITORS AT BEDSIDE. DR. RATLIFF HERE NOTIFIED OF LOW K+ WITH NEW ORDERS TO BE RECEIVED
--- NOTE | 2016-07-27 07:00 | NUR ---
REC'D REPORT AND RESUMED CARE, AWAKE AND ORIENTED, VSS, VAPOTHERM IN USE AT 80% FIO2 AND 40 LPM, DYSPNEA NOTED, STATES SHE KRISTEL NOT LFEEL LIKE SHE IS GETTING ENOUGH AIR, MONITOR SHOWING 98% SAT, BRUISES AND SKINTEARS THROUGH OUT, DENIES PAIN, ASSESSMENT COMPLETE PER FLOWSHEET, CALL LIGHT IN REACH, VOICES NO NEEDS AT THIS TIME
--- NOTE | 2016-07-27 09:00 | NUR ---
DAUGHTER TIO AT BEDSIDE, STATUS UPDATED, VOICES NO NEEDS at THIS TIME
--- NOTE | 2016-07-27 10:00 | NUR ---
DR CUTLER AT BEDSIDE FOR EVAL NEW ORDERS GIVEN
--- NOTE | 2016-07-27 11:05 | NUR ---
CONTINUES TO SIT UP IN CHAIR, BED BASS PLACED PER REQUEST, CALL LIGHT IN REACH, NO OTHER NEEDS AT THIS TIME
--- NOTE | 2016-07-27 13:19 | NUR ---
1 GM MAG AND ALBUMIN 25MG IVPB INITIATED PER ORDER
--- NOTE | 2016-07-27 13:37 | NUR ---
DR ANDREWS AT BEDSIDE FOR EVAL, NEW ORDER GIVEN0
--- NOTE | 2016-07-27 14:38 | NUR ---
RT CHANGED O2 TO 40 LPM AND 75% FIO2, O2 SAT 93%, CONTINUES TO SIT UP IN CHAIR, RESTING WITH EYES CLOSED, AROUSES TO VERBAL STIMULI
--- NOTE | 2016-07-27 15:00 | NUR ---
ASSESSMENT COMPLETE PER FLOWSHEET, VSS, CONTINUES ON VAPOTHERM AT 80% FIO2, NO CHANGES FROM PREVIOUS ASSESSMENT
--- NOTE | 2016-07-27 17:00 | NUR ---
FL DINNER TRAY TO BEDSIDE, ASSIST WITH SET UP AND INDEPENDENT WITH EATING
--- NOTE | 2016-07-27 18:00 | NUR ---
FIO2 CHANGED TO 75% PER RT, SAT 89%, NO VISITORS AT THIS TIME, NO NEEDS AT THIS TIME, CALL LIGHT IN REACH
--- NOTE | 2016-07-27 19:00 | NUR ---
REPORT RECEIVED AND ASSESSMENT COMPLETED. SEE FLOWSHEET FOR FULL DETAILS. VSS. WILL MONITOR. PT ON VAPTHERM. 40L 75% O2 SAT 94%
[2016-07-27 20:02] LABS: CALCIUM 8.5 mg/dL (8.5-10.1); CARBON DIOXIDE 35.4 mmol/L (21.0-32.0); CHLORIDE - SERUM 100 mmol/L (98-107); SODIUM 139 mmol/L (136-145); UREA NITROGEN 33 mg/dL (7-18)
[2016-07-27 20:07] LABS: CALC OSMOLALITY 290 mosm/kg (275-300); CREATININE - SERUM 0.8 mg/dL (0.6-1.3); GLUCOSE 205 mg/dL (74-106); MAGNESIUM - SERUM 2.2 mg/dL (1.8-2.4); POTASSIUM - SERUM 3.6 mmol/L (3.5-5.1); eGFR NON AFRICAN AMERICAN 76 mL/min (90-120)
--- NOTE | 2016-07-27 21:00 | NUR ---
2100 MEDS GIVEN. VSS. WILL CONTINUE TO MONITOR
--- NOTE | 2016-07-27 23:20 | NUR ---
REASSESSMENT COMPLETED SEE FLOWSHEET FOR FULL DETAILS. PT SLEEPING IN ROOM VSS NO CHANGES IN STATUS AT THIS TIME. VSS. WILL CONTINUE TO MONITOR
[2016-07-28] VITALS (10 sets, daily range): BP systolic 130–165; BP diastolic 67–99
--- NOTE | 2016-07-28 01:00 | NUR ---
PT HAD LIQUID BM. COMPLETE LINEN CHANGE PERFORMED.
--- NOTE | 2016-07-28 03:00 | NUR ---
REASSESSMENT COMPLETED. SEE FLOWSHEET FOR FULL DETAILS. PT RESTING IN ROOM. HAS HAD ANOTHER LIQUID BM. NO OTHER CHANGES AT THIS TIME. WILL CONTINUE TO MONITOR.
[2016-07-28 04:40] LABS: BASOPHILS 0.1 % (0-2); EOSINOPHILS 0 % (0-7); HEMATOCRIT 34.5 % (36.0-48.0); HEMOGLOBIN 10.8 g/dL (12-16); IMMATURE GRANULOCYTES 0.6 % (0-5); LYMPHOCYTES 4.5 % (15-50); MCH 25.6 pg (26.0-34.0); MCHC 31.3 g/dL (31.0-37.0); MCV 81.8 fL (80.0-100.0); MEAN PLATELET VOLUME 9.8 fL (7.4-10.4); MONOCYTES 3.5 % (2-11); NEUTROPHILS 91.3 % (40-80); PLATELET COUNT 268 10x3/uL (130-400); RBC 4.22 10x6/uL (4.00-5.40); RDW 15.6 % (11.5-14.5); WBC 10.2 10x3/uL (4.8-10.8)
[2016-07-28 05:08] LABS: CALCIUM 8.5 mg/dL (8.5-10.1); CARBON DIOXIDE 36.9 mmol/L (21.0-32.0); CHLORIDE - SERUM 101 mmol/L (98-107); CREATININE - SERUM 0.6 mg/dL (0.6-1.3); PHOSPHOROUS 2.7 mg/dL (2.5-4.9); SODIUM 141 mmol/L (136-145); UREA NITROGEN 30 mg/dL (7-18); eGFR NON AFRICAN AMERICAN > 90 mL/min (90-120)
[2016-07-28 05:16] LABS: CALC OSMOLALITY 288 mosm/kg (275-300); GLUCOSE 138 mg/dL (74-106); POTASSIUM - SERUM 4.2 mmol/L (3.5-5.1)
--- NOTE | 2016-07-28 05:42 | NUR ---
PT HAD ANOTHER LIQUID STOOL. VSS. WILL CONTINUE TO MONITOR
--- NOTE | 2016-07-28 07:36 | NUR ---
RECEIVED TO FLOOR FROM ICU VIA BED. A/O X3. VAPOR THERM IN PLACE. DENIES NEEDS AT THIS TIME.
--- NOTE | 2016-07-28 10:30 | NUR ---
UP TO CHAIR AT SIDE OF BED PER PT. NO C/O AT THIS TIME. REQUESTED AND PLACED FAN FOR PATIENT.
--- NOTE | 2016-07-28 12:30 | NUR ---
STILL UP IN CHIAR EATING LUNCH. NO C/O AT THIS TIME. DENIES NEEDS.
--- NOTE | 2016-07-28 13:47 | NUR ---
Nutrition Follow Up: Chart reviewed. Pt is tolerating diet and ileus is improving. Pt is eating 67% meal avg on a regular diet. +BM 07/28/16. Wt stable. I>O. Meds and labs reviewed. Pt with good po intake. Rec continue current diet. RD following.
--- NOTE | 2016-07-28 14:43 | NUR ---
MOVED TO ROOM VIA BED, 2207, WITH PATIENTS CONSENT.
--- NOTE | 2016-07-28 19:15 | NUR ---
VISITOR AT BEDSIDE. DIDN'T EAT MUCH SUPPER, NONE. DENIES NEEDS. NO CHANGES NOTED.
[2016-07-29] VITALS: BP 159/75
[2016-07-29 04:00] VITALS: BP 160/79
[2016-07-29 04:49] LABS: BASOPHILS 0.1 % (0-2); EOSINOPHILS 0 % (0-7); HEMOGLOBIN 10.3 g/dL (12-16); IMMATURE GRANULOCYTES 0.4 % (0-5); LYMPHOCYTES 6.5 % (15-50); MCH 25.8 pg (26.0-34.0); MCHC 31.2 g/dL (31.0-37.0); MCV 82.5 fL (80.0-100.0); MEAN PLATELET VOLUME 9.7 fL (7.4-10.4); MONOCYTES 3.9 % (2-11); NEUTROPHILS 89.1 % (40-80); PLATELET COUNT 260 10x3/uL (130-400); RDW 15.8 % (11.5-14.5); WBC 7.9 10x3/uL (4.8-10.8)
[2016-07-29 05:03] LABS: CALC OSMOLALITY 284 mosm/kg (275-300); CALCIUM 8.5 mg/dL (8.5-10.1); CARBON DIOXIDE 32.7 mmol/L (21.0-32.0); CHLORIDE - SERUM 101 mmol/L (98-107); CREATININE - SERUM 0.4 mg/dL (0.6-1.3); GLUCOSE 131 mg/dL (74-106); MAGNESIUM - SERUM 1.6 mg/dL (1.8-2.4); PHOSPHOROUS 2.9 mg/dL (2.5-4.9); POTASSIUM - SERUM 4.5 mmol/L (3.5-5.1); SODIUM 139 mmol/L (136-145); UREA NITROGEN 27 mg/dL (7-18); eGFR NON AFRICAN AMERICAN > 90 mL/min (90-120)
--- NOTE | 2016-07-29 07:30 | NUR ---
AWAKE AT THIS TIME. PT REMAINS ON VAPOTHERM PRESCRIBED. USE OF ACCESORY MUSCLES WITH VENTILATION. SRX2 WITH BED IN LOWEST POSITION AND WHEELS LOCKED. CALL LIGHT IN REACH AND DOOR OPEN. WILL CONTINUE WITH PLAN OF CARE.
[2016-07-29 07:38] VITALS: BP 173/95
--- NOTE | 2016-07-29 09:33 | NUR ---
PT IS RESTING IN BED WITH EYES OPEN. ALERT AND ORIENTED X 3. JUST FINISHED FEEDING SELF BREAKFAST WITHOUT DIFFICULTY. NO SWALLOW PROBLEMS NOTED. VAPOTHERM DEVICE IS ON AND INTACT. PT BECOMES SOB QUICKLY AT TIMES. IV INFUSING TO LFA WITHOUT DIFFICULTY. NO REDNESS OR EDEMA NOTED AT THE INSERTION SITE. TELEMETRY UNIT IS ON AND INTACT. SR'S ARE UP X 2 IN BED. CALL LIGHT AND BEDSIDE TABLE ARE WITHIN EASY REACH.
--- NOTE | 2016-07-29 10:16 | NUR ---
07/29/2016 10:08 DCP: Discharge Planning Patient Name: HAROLDO MITCHELL Admission Status: ER Accout number: [id number] Admission Date: 07-20-2016 : 1950 Admission Diagnosis:NAUSEA WITH VOMITING, UNSPECIFIED Attending: [facility] Current LOS: 9 Anticipated DC Date: 07-30-2016 Planned Disposition: Home Primary Insurance: [employer] [facility] Discharge Planning Comments: CM ASSESSMENT NOTE: CM MET WITH PATIENT TO ASSESS DISCHARGE PLANNING/NEEDS. PT STATES SHE LIVE ALONE AND IT IS A SAFE ENVIRONMENT TO RETURN HOME TO. SHE DENIES HAVING AND STEPS OR STAIRS IN HER HOME AND HER SISTER (CESAR SCHAEFFER, ) &/OR SISTER IN LAW (NIRAV MCKEON) WILL HELP HER AT HOME IF NEEDED AND DRIVE HER HOME IN PERSOANAL CAR. PT ALREADY HAS A NEBULIZER AND HOME O2 SHE USES [facility] FOR THAT. SHE DENIES ANY HH NEEDS AT THIS TIME. PT DENIES ANY OTHER DISCHARGE PLANNING/NEEDS AT THIS TIME CM WILL CONTINUE TO FOLLOW AND ASSIST NEEDED WITH DC PLANNING AND NEEDS. PCP: BRIANNA PHARMACY: [facility] [place] SISTER- CESAR SCHAEFFER [phone] DME: RACHEL CUMMINGS studio manager: Evelyn Cummings [id number]: Evelyn Cummings * Is the patient Alert and Oriented? Yes 0 * How many steps to enter\exit or inside your home? 0 0 * PCP BRIANNA 0 * Pharmacy [facility] 0 * Preadmission Environment Home Alone 0 * ADLs Independent 0 * Equipment Nebulizer Oxygen Walker 0 * List name and contact numbers for known caregivers / representatives who currently or will assist patient after discharge: CESAR SCHAEFFER [phone] NIRAV MCKEON (SISTER IN LAW) 0 * Community resources currently utilized None 0 * Please name any agencies selected above. [facility] FOR O2 AND NEBULIZER 0 * Additional services required to return to the preadmission environment? Yes 0 * Can the patient safely return to the preadmission environment? Yes 0 * Has this patient been hospitalized within the prior 30 days at any hospital? No 0
--- NOTE | 2016-07-29 11:00 | NUR ---
PT IS RESTING IN A CHAIR IN HER ROOM WHERE PT ASSISTED HER TO SIT. NO ACUTE DISTRESS NOTED.
[2016-07-29 12:22] VITALS: BP 143/70
--- NOTE | 2016-07-29 12:34 | NUR ---
PT IS SITTING IN A CHAIR AT BEDSIDE FEEDING SELF LUNCH. NO ACUTE DISTRESS NOTED.
--- NOTE | 2016-07-29 14:34 | NUR ---
PT IS NAPPING SITTING IN A RECLINER IN HER ROOM. NO ACUTE DISTRESS NOTED.
[2016-07-29 14:46] VITALS: BP 155/69
--- NOTE | 2016-07-29 18:06 | NUR ---
PT ASSISTED FROM RECLINER INTO BED WITH MAX ASSIST.
--- NOTE | 2016-07-29 19:30 | NUR ---
PT RECEIVED SITTING UP IN BED WATCHING TELEVISION. PT DENIES PAIN OR NEEDS AT THIS TIME. CALL LIGHT IN REACH. BED IN LOW POSITION. SIDE RAILS UP X2.
--- NOTE | 2016-07-29 22:45 | NUR ---
PT IS SITTING UP IN BED WITH THE NURSE AT THE BEDSIDE. SHE IS ON O2 AND NURSE IS HELPING TO ADJUST IT FOR COMFORT. NO SIGNS OF DISTRESS NOTED. PT IS ALERT AND ORIENTED, ABLE TO VERBALIZE NEEDS. THE BED IS LOW, RAILS UP X'S 2 WITH THE CALL LIGHT AT HAND.
[2016-07-30] VITALS: BP 161/80
[2016-07-30 04:00] VITALS: BP 175/73
[2016-07-30 05:37] LABS: BASOPHILS 0.1 % (0-2); EOSINOPHILS 0 % (0-7); HEMATOCRIT 37.6 % (36.0-48.0); HEMOGLOBIN 11.5 g/dL (12-16); IMMATURE GRANULOCYTES 0.7 % (0-5); LYMPHOCYTES 12.8 % (15-50); MCH 25.4 pg (26.0-34.0); MCHC 30.6 g/dL (31.0-37.0); MCV 83.2 fL (80.0-100.0); MONOCYTES 10.8 % (2-11); NEUTROPHILS 75.6 % (40-80); PLATELET COUNT 311 10x3/uL (130-400); RBC 4.52 10x6/uL (4.00-5.40); RDW 15.7 % (11.5-14.5)
[2016-07-30 05:55] LABS: CALC OSMOLALITY 276 mosm/kg (275-300); CALCIUM 8.7 mg/dL (8.5-10.1); CARBON DIOXIDE 31.2 mmol/L (21.0-32.0); CHLORIDE - SERUM 99 mmol/L (98-107); GLUCOSE 88 mg/dL (74-106); PHOSPHOROUS 2.7 mg/dL (2.5-4.9); POTASSIUM - SERUM 4.5 mmol/L (3.5-5.1); SODIUM 137 mmol/L (136-145); UREA NITROGEN 24 mg/dL (7-18)
[2016-07-30 05:56] LABS: CREATININE - SERUM 0.6 mg/dL (0.6-1.3); eGFR NON AFRICAN AMERICAN > 90 mL/min (90-120)
--- NOTE | 2016-07-30 07:30 | NUR ---
AWAKE AND ALERT. ORIENTED X3. NO C/O AT THIS TIME. LUNGS HAVE FAINT CRACKLES THROUGHOUT AND DIMINISHED. OCCASSIONALLY PRODUCTIVE NOTED. SKIN HAS MULTIPLE AREAS OF BRUISES AND SKIN TEARS. NOTHING NEW NOTED. IV TO LEFT FOREARM PATENT WITHOUT REDNESS AT INSERTION SITE. VAPOR THERM IN PLACE. DENIES NEEDS AT THIS TIME.
[2016-07-30 07:51] VITALS: BP 150/70
--- NOTE | 2016-07-30 08:00 | NUR ---
VAPOR THERM FOUND OFF COMPLETELY. NOT BREATHING WELL. O2 APPLIED PER REBREATHER AND RT NOTIFIED. RT GOT MACHINE GOING. O2 SAT AT 95%. WILL CONTINUE TO MONITOR.
--- NOTE | 2016-07-30 11:07 | NUR ---
Nutrition Follow Up: Chart reviewed. Pt is eating 75% meal avg on a regular diet. I>O. +BM 07/29/16. Wt gain since admit noted. Labs reviewed. Meds noted including Prednisone. Rec continue current diet. RD following.
[2016-07-30 12:00] VITALS: BP 142/80
[2016-07-30 15:37] VITALS: BP 153/84
--- NOTE | 2016-07-30 17:29 | NUR ---
SITTING UP IN BED EATING WITH VISITORS IN ROOM. NO C/O AT THIS TIME. O2 AT 8L WITH OXYMIZER. SATS 93%. NO CHANGES NOTED.
[2016-07-30 20:00] VITALS: BP 142/80
[2016-07-31] VITALS: BP 141/77
[2016-07-31 04:00] VITALS: BP 179/82
--- NOTE | 2016-07-31 04:14 | NUR ---
ASSESSED AT THE BEGINNING OF THE SHIFT. PT IS ALERT AND ORIENTED, ABLE TO VERBALIZE NEEDS. SHE IS NOW WEARING AN OXIMYZER SET AT 8 LITERS AND SEEMS TO BED DOING WELL. SHE IS ASSISTED WITH TURNING AND GETTING COMFORTABLE. NO IV FLUIDS ARE INFUSING SHE IS SALINE LOCKED. THE BED IS LOW, RAILS UP X'S 2 WITH THE CALL LIGHT AT HAND.
[2016-07-31 04:57] LABS: BASOPHILS 0.1 % (0-2); EOSINOPHILS 0.1 % (0-7); HEMATOCRIT 36.7 % (36.0-48.0); HEMOGLOBIN 11.5 g/dL (12-16); LYMPHOCYTES 15.5 % (15-50); MCH 25.4 pg (26.0-34.0); MCHC 31.3 g/dL (31.0-37.0); MONOCYTES 10.1 % (2-11); NEUTROPHILS 73.2 % (40-80); PLATELET COUNT 330 10x3/uL (130-400); RBC 4.53 10x6/uL (4.00-5.40); RDW 15.5 % (11.5-14.5); WBC 7.9 10x3/uL (4.8-10.8)
[2016-07-31 05:16] LABS: CALC OSMOLALITY 274 mosm/kg (275-300); CALCIUM 8.5 mg/dL (8.5-10.1); CARBON DIOXIDE 29.2 mmol/L (21.0-32.0); CHLORIDE - SERUM 102 mmol/L (98-107); CREATININE - SERUM 0.4 mg/dL (0.6-1.3); GLUCOSE 64 mg/dL (74-106); PHOSPHOROUS 2.8 mg/dL (2.5-4.9); POTASSIUM - SERUM 5.3 mmol/L (3.5-5.1); SODIUM 137 mmol/L (136-145); UREA NITROGEN 22 mg/dL (7-18); eGFR NON AFRICAN AMERICAN > 90 mL/min (90-120)
--- NOTE | 2016-07-31 07:58 | NUR ---
PATIENT CONTINUES TO REQUIRE HIGH FLOW OXYGEN VIA VAPOTHERM DEVICE, THEREFORE PT HAS NOT BEEN ABLE TO AMBULATE PATIENT. ONCE PATIENT IS ABLE TO BE WEANED ONTO OXYMIZER OR NASAL CANNULA, PT WILL PROGRESS TO GAIT TRAINING IF CLEARED BY RT. THANK YOU FOR THIS REFERRAL AND ALLOWING US TO ASSIST IN THE CARE OF THIS PATIENT. ASHISH GONZALEZ, PT, DPT
[2016-07-31 08:05] VITALS: BP 133/69
--- NOTE | 2016-07-31 08:05 | NUR ---
PATIENT'S HEART RATE 138, SINUS TACHYCARDIA ON THE STATOR PLATE WASHER. PAGED .
--- NOTE | 2016-07-31 08:10 | NUR ---
PATIENT VERBALIZED FEELING VERY ANXIOUS, PATIENT IS SHAKEY.
--- NOTE | 2016-07-31 08:30 | NUR ---
SPOKE WITH A SECOND TIME, HE STATED GIVE HER TYLENOL AND HER NORVASC AND CALL ME IN 20 MINUTES IF HER HEART RATE IS STILL THAT HIGH. NOTIFIED HIM THAT I JUST GAVE BOTH OF THOSE MEDICATIONS, AND HELD HER POTASSIUM DUE TO POTASSIUM LEVEL BEING 5.3.
--- NOTE | 2016-07-31 08:55 | NUR ---
PATIENT STATED HER ANXIETY IS BETTER. PATIENT IS NOT SHAKING ANYMORE. CALLED BASKET MAKER SHE SAID THE PATIENT IS RUNNING [address] TRIED TO CALL CELL PHONE NUMBER, NO ANSWER.
--- NOTE | 2016-07-31 09:09 | NUR ---
APPLIED A COLD WASH CLOTH TO PATIENT'S FOREHEAD, REMOVED SHEET OFF OF PATIENT. PATIENT STATED SHE IS HOT. [id number] IN ROOM
[2016-07-31 12:38] VITALS: BP 114/68
[2016-07-31 16:01] VITALS: BP 109/65
--- NOTE | 2016-07-31 18:40 | NUR ---
PATIENT IN BED, RESPIRATIONS ARE EVEN AND UNLABORED ON THE OXYMIZER. PATIENT STATED SHE IS FEELING MUCH BETTER. PATIENT'S [id number]-ON-TOT IN ROOM. BOTH DENY NEEDS. BED IN LOWEST POSITION, CALL LIGHT IN REACH. BED RAILS UP X'S 2.
[2016-07-31 20:00] VITALS: BP 131/65
--- NOTE | 2016-07-31 23:28 | NUR ---
PT WAS SLEEPING WITH HOB ELEVATED AND OXIMIZER IN PLACE FOR 02. NO DISTRESS IS NOTED AND RESPIRATIONS ARE GOOD. THE BED IS LOW, RAILS UP X'S 2 WITH THE CALL LIGHT AT HAND.
[2016-08-01] VITALS: BP 91/58
[2016-08-01 04:00] VITALS: BP 156/78
[2016-08-01 04:45] LABS: BASOPHILS 0.3 % (0-2); EOSINOPHILS 0.5 % (0-7); HEMATOCRIT 39.1 % (36.0-48.0); HEMOGLOBIN 12.5 g/dL (12-16); IMMATURE GRANULOCYTES 1.9 % (0-5); LYMPHOCYTES 12.1 % (15-50); MCH 25.9 pg (26.0-34.0); MCV 81.1 fL (80.0-100.0); MEAN PLATELET VOLUME 9.7 fL (7.4-10.4); MONOCYTES 12.5 % (2-11); NEUTROPHILS 72.7 % (40-80); PLATELET COUNT 320 10x3/uL (130-400); RBC 4.82 10x6/uL (4.00-5.40); RDW 15.7 % (11.5-14.5)
[2016-08-01 04:46] LABS: WBC 11.5 10x3/uL (4.8-10.8)
[2016-08-01 05:01] LABS: CALCIUM 8.8 mg/dL (8.5-10.1); CHLORIDE - SERUM 101 mmol/L (98-107); POTASSIUM - SERUM 5.5 mmol/L (3.5-5.1); SODIUM 137 mmol/L (136-145); UREA NITROGEN 25 mg/dL (7-18)
[2016-08-01 05:02] LABS: CALC OSMOLALITY 275 mosm/kg (275-300); CREATININE - SERUM 0.6 mg/dL (0.6-1.3); GLUCOSE 68 mg/dL (74-106)
[2016-08-01 05:03] LABS: eGFR NON AFRICAN AMERICAN > 90 mL/min (90-120)
--- NOTE | 2016-08-01 07:40 | NUR ---
PATIENT RECEIVED ALERT IN HIGH RUBIO POSITION. NO SIGNS OF DISTRESS NOTED. DENIES NEEDS. SIDE RAILS UP X2. BED IN LOW POSITION. CALL LIGHT IN REACH.
[2016-08-01 07:44] VITALS: BP 115/63
--- NOTE | 2016-08-01 08:57 | NUR ---
PATIENT ALERT IN HIGH RUBIO POSITION. NO SIGNS OF DISTRESS NOTED. SCHEDULED MEDICATION ADMINISTERED. DENIES NEEDS. SIDE RAILS UP X2. BED IN LOW POSITION. CALL LIGHT IN REACH.
[2016-08-01 12:40] VITALS: BP 109/60
--- NOTE | 2016-08-01 12:40 | NUR ---
MICRO CALLED STATING PATIENT HAD POSITIVE BLOOD CULTURES FOR GRAM POSITIVE COCCI. DR FITZPATRICK ON FLOOR MAKING ROUNDS AND NOTIFIED. ORDER RECEIVED FOR VANCOMYCIN AND TO RECHECK URINE.
--- NOTE | 2016-08-01 13:13 | NUR ---
IV ABX INITIATED PER ORDERS. IV TO LEFT AC PATENT. FLUSHES EASY. NO REDNESS OR INFLAMMATION NOTED. DENIES NEEDS. SIDE RAILS UP X2. BED IN LOW POSITION. CALL LIGHT IN REACH.
--- NOTE | 2016-08-01 15:45 | NUR ---
ASSISTED BACK TO BED FROM BSC ASSIST X2. PATIENT VERY WEAK AND UNSTEADY. POSITIONED IN BED FOR COMFORT. SIDE RAILS UP X2. BED IN LOW POSITION. CALL LIGHT IN REACH. DENIES NEEDS.
[2016-08-01 15:50] VITALS: BP 120/51
--- NOTE | 2016-08-01 17:00 | NUR ---
PATEINT IN MID RUBIO POSITION RESTING WITH EYES CLOSED. RESPIRATIONS EVEN AND UNLABORED. SIDE RAILS UP X2. BED IN LOW POSITION. CALL LIGHT IN REACH.
--- NOTE | 2016-08-01 19:30 | NUR ---
REC'D IN BED AWAKE AND ALERT. RESP EVEN AND UNLABORED WITH NO DISTRES NOTED. DENIES ANY PAIN OR DISCOMFORT AT THIS TIME. ASSESMENT COMPLETED. WILL CONTINUE TO OBSERVE FOR NEEDS
[2016-08-01 20:00] VITALS: BP 113/59
[2016-08-01 23:50] LABS: APPEARANCE HAZY (CLEAR); BILIRUBIN 2+ (NEGATIVE); COLOR DK YELLOW (YELLOW); GLUCOSE NEGATIVE (NEGATIVE); KETONE NEGATIVE (NEGATIVE); LEUKOCYTE ESTERASE TRACE (NEGATIVE); NITRITE NEGATIVE (NEGATIVE); PROTEIN TRACE mg/dL (NEGATIVE); SPECIFIC GRAVITY 1.015 (1.005-1.020); UROBILINOGEN NORMAL (NORMAL)
[2016-08-01 23:54] LABS: AMORPHOUS SEDIMENT <1+ /lpf (NONE SEEN); BACTERIA MODERATE /hpf (NONE SEEN); GRANULAR CAST 0-5 /lpf (NONE SEEN); HYALINE CAST OCC /lpf (NONE SEEN); RED CELLS - URINE OCC /hpf (0-5); WAXY CAST RARE /lpf (NONE SEEN); YEAST >1+ /hpf (NONE SEEN)
[2016-08-02 00:09] VITALS: BP 112/59
--- NOTE | 2016-08-02 03:21 | NUR ---
PATIENT RESTING WITH EYES CLOSED AND NO VISIBLE SIGNS OF DISTRESS. BED IN THE LOWEST POSITION AND CALL LIGHT WITHIN REACH.
--- NOTE | 2016-08-02 03:35 | NUR ---
RESTING WELL AT THIS TIME WITH NO C/O NOTED. C/L IN REACH AT BEDSIDE.
[2016-08-02 04:00] VITALS: BP 149/77
[2016-08-02 04:39] LABS: BASOPHILS 0.1 % (0-2); EOSINOPHILS 0.8 % (0-7); HEMATOCRIT 32.5 % (36.0-48.0); HEMOGLOBIN 10.2 g/dL (12-16); IMMATURE GRANULOCYTES 1.7 % (0-5); MCH 25.3 pg (26.0-34.0); MCHC 31.4 g/dL (31.0-37.0); MCV 80.6 fL (80.0-100.0); MEAN PLATELET VOLUME 9.9 fL (7.4-10.4); NEUTROPHILS 71.4 % (40-80); PLATELET COUNT 348 10x3/uL (130-400); RBC 4.03 10x6/uL (4.00-5.40); RDW 15.8 % (11.5-14.5); WBC 9.6 10x3/uL (4.8-10.8)
[2016-08-02 04:52] LABS: CALC OSMOLALITY 273 mosm/kg (275-300); CALCIUM 8.3 mg/dL (8.5-10.1); CARBON DIOXIDE 27.6 mmol/L (21.0-32.0); CHLORIDE - SERUM 101 mmol/L (98-107); CREATININE - SERUM 0.6 mg/dL (0.6-1.3); GLUCOSE 92 mg/dL (74-106); SODIUM 135 mmol/L (136-145); UREA NITROGEN 25 mg/dL (7-18); eGFR NON AFRICAN AMERICAN > 90 mL/min (90-120)
[2016-08-02 04:53] LABS: POTASSIUM - SERUM 4.6 mmol/L (3.5-5.1)
[2016-08-02 07:59] VITALS: BP 137/70
[2016-08-02 12:07] VITALS: BP 120/63
--- NOTE | 2016-08-02 15:39 | NUR ---
RESTING WITHOUT DISTRESS.DOOR OPEN.CALL LIGHT IN REACH
[2016-08-02 16:32] VITALS: BP 107/67
[2016-08-02 20:00] VITALS: BP 117/59
--- NOTE | 2016-08-02 21:45 | NUR ---
PATIENT RESTING IN BED. C/O RESTLESS LEGS. SCHEDULED MIRAPEX AND OTHER MEDS GIVEN. SHIFT ASSESSMENT COMPLETED. DENIES ANY OTHER NEEDS AT THIS TIME. BED LOW. CALL LIGHT IN REACH
[2016-08-03] VITALS: BP 131/59
--- NOTE | 2016-08-03 03:03 | NUR ---
PATIENT RESTING WITH EYES CLOSED AND NO VISIBLE SIGNS OF DISTRESS. BED IN LOWEST POSITION AND CALL LIGHT WITHIN REACH.
[2016-08-03 04:00] VITALS: BP 131/71
[2016-08-03 04:56] LABS: BASOPHILS 0.1 % (0-2); EOSINOPHILS 1.3 % (0-7); HEMATOCRIT 31.1 % (36.0-48.0); HEMOGLOBIN 9.8 g/dL (12-16); IMMATURE GRANULOCYTES 1.4 % (0-5); LYMPHOCYTES 7.7 % (15-50); MCH 25.3 pg (26.0-34.0); MCHC 31.5 g/dL (31.0-37.0); MCV 80.4 fL (80.0-100.0); MEAN PLATELET VOLUME 10.6 fL (7.4-10.4); MONOCYTES 10.3 % (2-11); NEUTROPHILS 79.2 % (40-80); PLATELET COUNT 339 10x3/uL (130-400); RBC 3.87 10x6/uL (4.00-5.40); RDW 16.2 % (11.5-14.5); WBC 13.6 10x3/uL (4.8-10.8)
--- NOTE | 2016-08-03 07:15 | NUR ---
PT REC'D FROM [facility]. RESTING IN BED WATCHING TV. REPOSITIONED UP IN BED AT THIS TIME. NO COMPLAINTS OF PAIN. DID STATE SHE HAD A BM EARLY THIS AM. BED LOW, CALL LIGHT IN REACH, DENIES NEEDS. CPOC.
[2016-08-03 07:53] LABS: CALC OSMOLALITY 269 mosm/kg (275-300); CALCIUM 8.4 mg/dL (8.5-10.1); CARBON DIOXIDE 24.8 mmol/L (21.0-32.0); CHLORIDE - SERUM 100 mmol/L (98-107); CREATININE - SERUM 0.7 mg/dL (0.6-1.3); GLUCOSE 97 mg/dL (74-106); SODIUM 133 mmol/L (136-145); UREA NITROGEN 25 mg/dL (7-18); eGFR NON AFRICAN AMERICAN 89 mL/min (90-120)
[2016-08-03 07:54] LABS: POTASSIUM - SERUM 5.3 mmol/L (3.5-5.1)
[2016-08-03 08:18] VITALS: BP 129/55
--- NOTE | 2016-08-03 09:41 | NUR ---
Rehab Note- Acute Rehab Prescreen order received. The patient has [employer] insurance benefts and cannot be accepted to [facility] Acute Rehab. Thank you for this referal! Sydney Goss RN Clinical Liaison, [facility] Rehab/[place]
--- NOTE | 2016-08-03 11:06 | NUR ---
PT AOX4 RESP EVEN AND NONLABORED PT HERE FOR COPD AND WEAKNESS FOR THIS VISIT. IV TO LEFT FOREARM PATENT AND INTACT PT DENIES NEEDS AT THIS TIME SRX2 BED AT LOWEST SETTING CALL LIGHT WITHIN REACH WILL CONTINUE TO MONITOR
[2016-08-03 11:52] VITALS: BP 122/65
[2016-08-03 16:28] VITALS: BP 124/65
[2016-08-03 20:00] VITALS: BP 118/65
--- NOTE | 2016-08-03 20:06 | NUR ---
ASSESSMENT COMPLETED, NO ACUTE DISTRESS NOTED, FALL PRECAUTIONS IN PLACE, CL IN REACH, WILL MONITOR
--- NOTE | 2016-08-03 20:19 | NUR ---
MEDS GIVEN PER MAR IN APPLESAUCE, KELLY WELL, DENIES OTHER NEEDS AT THIS TIME, SR'S UP, CL IN REACH
--- NOTE | 2016-08-03 23:35 | NUR ---
PRN ATARAX GIVEN PER REQUEST, KELLY WELL, CL IN REACH
[2016-08-04] VITALS: BP 129/70
[2016-08-04 04:00] VITALS: BP 138/67
[2016-08-04 04:50] LABS: BASOPHILS 0.1 % (0-2); EOSINOPHILS 0.5 % (0-7); HEMOGLOBIN 10.1 g/dL (12-16); LYMPHOCYTES 7.8 % (15-50); MCH 25.1 pg (26.0-34.0); MCHC 31.6 g/dL (31.0-37.0); MCV 79.6 fL (80.0-100.0); MEAN PLATELET VOLUME 9.8 fL (7.4-10.4); MONOCYTES 13.6 % (2-11); RBC 4.02 10x6/uL (4.00-5.40); RDW 15.8 % (11.5-14.5); WBC 11.1 10x3/uL (4.8-10.8)
[2016-08-04 04:54] LABS: PLATELET COUNT 438 10x3/uL (130-400)
[2016-08-04 05:03] LABS: CALC OSMOLALITY 267 mosm/kg (275-300); CALCIUM 8.3 mg/dL (8.5-10.1); CARBON DIOXIDE 25.6 mmol/L (21.0-32.0); CHLORIDE - SERUM 98 mmol/L (98-107); CREATININE - SERUM 0.7 mg/dL (0.6-1.3); GLUCOSE 88 mg/dL (74-106); POTASSIUM - SERUM 4.6 mmol/L (3.5-5.1); SODIUM 132 mmol/L (136-145); UREA NITROGEN 23 mg/dL (7-18); eGFR NON AFRICAN AMERICAN 89 mL/min (90-120)
[2016-08-04 08:07] VITALS: BP 141/86
[2016-08-04 12:34] VITALS: BP 134/63
--- NOTE | 2016-08-04 14:23 | NUR ---
NUTRITION MONITORING & EVAL CHART REVIEWED, PT VISIT X 2. 25% INTAKE BREAKFAST, NO INTAKE LUNCH "IT STINKS". REFUSES ENSURE "IT MADE ME SICK EARLIER" WILL CONTINUE TO PROVIDE DIET, ENCOURAGE PO INTAKE. RD FOLLOWING
[2016-08-04 20:00] VITALS: BP 128/68
[2016-08-05] VITALS: BP 141/75
--- NOTE | 2016-08-05 00:22 | NUR ---
PT REC'D FROM DAY NURSE. PT RESTING, EYES CLOSED. RR ARE EVEN AND UNLABORED. WCTM.
--- NOTE | 2016-08-05 01:58 | NUR ---
PT REQ AND REC'D PRN ATARAX FOR ANXIETY. WCTM.
[2016-08-05 04:00] VITALS: BP 137/68
[2016-08-05 07:15] LABS: BASOPHILS 0 % (0-2); EOSINOPHILS 2.6 % (0-7); HEMATOCRIT 31.5 % (36.0-48.0); IMMATURE GRANULOCYTES 0.6 % (0-5); LYMPHOCYTES 8.5 % (15-50); MCH 25.3 pg (26.0-34.0); MCHC 31.7 g/dL (31.0-37.0); MCV 79.5 fL (80.0-100.0); MEAN PLATELET VOLUME 9.3 fL (7.4-10.4); MONOCYTES 14.1 % (2-11); NEUTROPHILS 74.2 % (40-80); PLATELET COUNT 444 10x3/uL (130-400); RBC 3.96 10x6/uL (4.00-5.40); RDW 15.5 % (11.5-14.5); WBC 11.6 10x3/uL (4.8-10.8)
[2016-08-05 07:35] LABS: CARBON DIOXIDE 26.2 mmol/L (21.0-32.0); CHLORIDE - SERUM 97 mmol/L (98-107); CREATININE - SERUM 0.7 mg/dL (0.6-1.3); MAGNESIUM - SERUM 1.2 mg/dL (1.8-2.4); PHOSPHOROUS 3.4 mg/dL (2.5-4.9); POTASSIUM - SERUM 4.3 mmol/L (3.5-5.1); SODIUM 131 mmol/L (136-145); eGFR NON AFRICAN AMERICAN 89 mL/min (90-120)
[2016-08-05 07:43] LABS: CALC OSMOLALITY 261 mosm/kg (275-300); GLUCOSE 63 mg/dL (74-106); UREA NITROGEN 16 mg/dL (7-18)
--- NOTE | 2016-08-05 08:00 | NUR ---
PATIENT RECEIVED ALERT IN HIGH RUBIO POSITION. NO SIGNS OF DISTRESS NOTED. DENIES NEEDS. SIDE RAILS UP X2. BED IN LOW POSITION. CALL LIGHT IN REACH.
[2016-08-05 08:09] VITALS: BP 116/59
--- NOTE | 2016-08-05 08:55 | NUR ---
PATIENT ALERT IN BED. NO SIGNS OF DISTRESS NOTED. SCHEDULED MEDICATION ADMINISTERED WITH APPLESAUCE. WELL TOLERATED. DENIES NEEDS. SIDE RAILS UP X2. BED IN LOW POSITION. CALL LIGHT IN REACH.
[2016-08-05 10:57] VITALS: BP 114/64
--- NOTE | 2016-08-05 12:00 | NUR ---
PATIENT ASSISTED BACK TO BED FROM BSC ASSIST X2. POSITIONED IN BED FOR COMFORT. DENIES NEEDS. SIDE RAILS UP X2. BED IN LOW POSITION. CALL LIGHT IN REACH.
--- NOTE | 2016-08-05 15:30 | NUR ---
ALERT IN BED WATCHING TV. NO SIGNS OF DISTRESS NOTED. SIDE RAILS UP X2. BED IN LOW POSITION. CALL LIGHT IN REACH.
[2016-08-05 15:33] VITALS: BP 129/64
--- NOTE | 2016-08-05 17:03 | NUR ---
OT NOTE: PT COMPLETED BUE AROM EXS FOR INCREASED AX TOLERANCE. PT COMPLETED BED MOB WITH MOD/MIN A. THANK YOU, ALLY CAREY/Crista
--- NOTE | 2016-08-05 17:29 | NUR ---
ALERT IN BED EATING DINNER. TOLERATING WELL. SIDE RAILS UP X2. BED IN LOW POSITION. CALL LIGHT IN REACH.
[2016-08-05 20:00] VITALS: BP 123/64
[2016-08-06] VITALS: BP 127/64
--- NOTE | 2016-08-06 02:43 | NUR ---
PT RESTING QUIETLY, EYES CLOSED. OXYGEN AT 5L/NC. RESP EVEN, UNLABORED. NO DISTRESS NOTED. CONTINUE REFRIGERATOR GLAZIER'S PLAN OF CARE.
[2016-08-06 04:00] VITALS: BP 139/74
[2016-08-06 04:32] LABS: BASOPHILS 0 % (0-2); EOSINOPHILS 0.5 % (0-7); HEMATOCRIT 29.6 % (36.0-48.0); HEMOGLOBIN 9.4 g/dL (12-16); IMMATURE GRANULOCYTES 0.4 % (0-5); LYMPHOCYTES 12.2 % (15-50); MCH 25.2 pg (26.0-34.0); MCHC 31.8 g/dL (31.0-37.0); MCV 79.4 fL (80.0-100.0); MEAN PLATELET VOLUME 9.3 fL (7.4-10.4); MONOCYTES 11.4 % (2-11); NEUTROPHILS 75.5 % (40-80); PLATELET COUNT 437 10x3/uL (130-400); RBC 3.73 10x6/uL (4.00-5.40); RDW 15.5 % (11.5-14.5); WBC 7.5 10x3/uL (4.8-10.8)
[2016-08-06 04:56] LABS: CALC OSMOLALITY 261 mosm/kg (275-300); CALCIUM 8.3 mg/dL (8.5-10.1); CHLORIDE - SERUM 97 mmol/L (98-107); CREATININE - SERUM 0.6 mg/dL (0.6-1.3); GLUCOSE 75 mg/dL (74-106); MAGNESIUM - SERUM 1.3 mg/dL (1.8-2.4); PHOSPHOROUS 3.6 mg/dL (2.5-4.9); POTASSIUM - SERUM 4.6 mmol/L (3.5-5.1); SODIUM 130 mmol/L (136-145); UREA NITROGEN 17 mg/dL (7-18); eGFR NON AFRICAN AMERICAN > 90 mL/min (90-120)
--- NOTE | 2016-08-06 06:32 | NUR ---
PATIENT SPIKED A FEVER UP TO 100.8 AND TYLENOL WAS GIVEN. SHE COMPLAINED THAT THERE WAS NO SLEEPY MEDICINE GIVEN YESTERDAY. NO OTHER CHANGES FROM THE ASSESSMENT.
[2016-08-06 08:13] VITALS: BP 115/63
[2016-08-06 11:58] VITALS: BP 110/71; BP 122/77
[2016-08-06 16:10] VITALS: BP 137/65
[2016-08-06 20:00] VITALS: BP 130/58
[2016-08-07] VITALS: BP 116/62
--- NOTE | 2016-08-07 03:22 | NUR ---
ASSESSED AT THE BEGINNING OF THE SHIFT. PT IS ALERT AND ORIENTED, ABLE TO VERBALIZE NEEDS. SHE HAS O2 IN PLACE AT 5 LITERS PER N/C. HER ABD IS STILL LARGE AND TIGHT. THER BS'S ARE VERY LIGHT AND SHE IS NOT PASSING ANY GAS. EXCEPT FOR MEDS SHE REMAINS NPO AND DENIES ANY PAIN AT [facility]. MD WAS CALLED DUE TO ELEVATED HR OF 142 AND HE GAVE HER ATIVAN FOR REST. SHE IS RESTING QUIET AND STILL DENIES PAIN. THE BED IS LOW, RAILS UP X'S 2 WITH THE CALL LIGHT AT HAND. THE IV SITE IS SALINE LOCKED.
[2016-08-07 04:00] VITALS: BP 115/59
[2016-08-07 04:19] LABS: BASOPHILS 0.2 % (0-2); EOSINOPHILS 0.9 % (0-7); HEMATOCRIT 28.9 % (36.0-48.0); HEMOGLOBIN 9.2 g/dL (12-16); IMMATURE GRANULOCYTES 0.9 % (0-5); LYMPHOCYTES 18.6 % (15-50); MCH 25.5 pg (26.0-34.0); MCHC 31.8 g/dL (31.0-37.0); MCV 80.1 fL (80.0-100.0); MEAN PLATELET VOLUME 9.5 fL (7.4-10.4); NEUTROPHILS 63.4 % (40-80); PLATELET COUNT 356 10x3/uL (130-400); RBC 3.61 10x6/uL (4.00-5.40); RDW 15.2 % (11.5-14.5)
[2016-08-07 04:20] LABS: WBC 5.4 10x3/uL (4.8-10.8)
[2016-08-07 04:30] LABS: ALBUMIN 1.6 g/dL (3.4-5.0); ALKALINE PHOSPHATASE 115 U/L (46-116); ALT (SGPT) 16 U/L (10-68); AMYLASE - SERUM 39 U/L (25-115); BILIRUBIN - TOTAL 0.92 mg/dL (0.2-1.3); CALC OSMOLALITY 264 mosm/kg (275-300); CALCIUM 7.7 mg/dL (8.5-10.1); CARBON DIOXIDE 23.5 mmol/L (21.0-32.0); CHLORIDE - SERUM 100 mmol/L (98-107); CREATININE - SERUM 0.6 mg/dL (0.6-1.3); MAGNESIUM - SERUM 1.2 mg/dL (1.8-2.4); POTASSIUM - SERUM 4.3 mmol/L (3.5-5.1); PROTEIN - SERUM 5.1 g/dL (6.4-8.2); SODIUM 133 mmol/L (136-145); UREA NITROGEN 16 mg/dL (7-18); eGFR NON AFRICAN AMERICAN > 90 mL/min (90-120)
[2016-08-07 04:31] LABS: LIPASE 39 U/L (73-393)
[2016-08-07 04:32] LABS: GLUCOSE 64 mg/dL (74-106)
[2016-08-07 08:14] VITALS: BP 136/66
--- NOTE | 2016-08-07 08:32 | NUR ---
AWAKE AND ALERT. ORIENTED X3. NO C/O AT THIS TIME. LUNGS ARE CLEAR BUT DIMINISHED ON RIGHT SIDE, OCCASSIONAL PRODUCTIVE COUGH NOTED. SKIN IS INTACT WITHOUT REDNESS EXCEPT AREAS OF SCRAPES AND BRUISES, NONE OF WHICH ARE NEW. SL TO LEFT AC IS PATENT WITHOUT REDNESS. DENIES NEEDS.
--- NOTE | 2016-08-07 10:30 | NUR ---
UP TO BR WITH MIN ASSIST OF ONE. VOIDED WITHOUT DIFFICULTY.
[2016-08-07 12:05] VITALS: BP 116/59
--- NOTE | 2016-08-07 15:34 | NUR ---
RESTING QUIETLY IN BED. SISTER WAS HERE TO VISIT. ALL QUESTIONS ANSWERED. DENIES NEEDS.
[2016-08-07 15:57] VITALS: BP 117/62
--- NOTE | 2016-08-07 18:09 | NUR ---
DR. GARCIA HERE. NO CHANGES NOTED. DENIES NEEDS.
--- NOTE | 2016-08-07 19:50 | NUR ---
PT LYING IN BED AWAKE, ASSESSMENT COMPLETED, NC IN PLACE, PT REMINDED OF NPO STATUS, UNDERSTANDING VOICED, DENIES NEEDS AT THIS TIME, SR'S UP, HOB ELEVATED, CL IN REACH, WILL MONITOR
[2016-08-07 20:00] VITALS: BP 120/63
--- NOTE | 2016-08-07 21:12 | NUR ---
ASSISTED PT ON AND OFF BEDPAN, REPOSITIONED FOR COMFORT, SAFETY MEASURES IN PLACE, CL IN REACH
--- NOTE | 2016-08-07 23:38 | NUR ---
HOB ELEVATED, ASSISTED WITH BEDPAN, DENIES OTHER NEEDS AT THIS TIME, SR'S UP , CL IN REACH
[2016-08-08] VITALS (7 sets, daily range): BP systolic 123–144; BP diastolic 62–80
--- NOTE | 2016-08-08 04:34 | NUR ---
PT ANXIOUS WITH ELEVATED HR OF 146, LOPRESSOR GIVEN WITH 10CC H2O, ATIVAN GIVEN UNDER TONGUE, INSTRUCTED PT TO TAKE DEEP BREATHS TO INCREASE O2 LEVEL CURRENTLY AT 91%, NO ACUTE DISTRESS NOTED, PT A/O, CL IN REACH, WILL MONITOR
[2016-08-08 04:51] LABS: BASOPHILS 0 % (0-2); EOSINOPHILS 0.8 % (0-7); HEMATOCRIT 27.8 % (36.0-48.0); HEMOGLOBIN 8.7 g/dL (12-16); IMMATURE GRANULOCYTES 0.3 % (0-5); LYMPHOCYTES 18.1 % (15-50); MCHC 31.3 g/dL (31.0-37.0); MCV 79.9 fL (80.0-100.0); MEAN PLATELET VOLUME 9.4 fL (7.4-10.4); MONOCYTES 19.9 % (2-11); NEUTROPHILS 60.9 % (40-80); PLATELET COUNT 398 10x3/uL (130-400); RBC 3.48 10x6/uL (4.00-5.40); RDW 15.4 % (11.5-14.5); WBC 3.8 10x3/uL (4.8-10.8)
--- NOTE | 2016-08-08 05:24 | NUR ---
HR NOW AT 114, POX AT 95%, NO DISTRESS NOTED, ANXIETY HAS DECREASED, CL IN REACH
[2016-08-08 06:02] LABS: ALBUMIN 1.7 g/dL (3.4-5.0); ALKALINE PHOSPHATASE 103 U/L (46-116); ALT (SGPT) 15 U/L (10-68); BILIRUBIN - TOTAL 0.79 mg/dL (0.2-1.3); CALC OSMOLALITY 266 mosm/kg (275-300); CARBON DIOXIDE 21.4 mmol/L (21.0-32.0); CHLORIDE - SERUM 101 mmol/L (98-107); CREATININE - SERUM 0.6 mg/dL (0.6-1.3); GLUCOSE 72 mg/dL (74-106); MAGNESIUM - SERUM 1.5 mg/dL (1.8-2.4); PHOSPHOROUS 4.2 mg/dL (2.5-4.9); POTASSIUM - SERUM 4.7 mmol/L (3.5-5.1); PROTEIN - SERUM 6.2 g/dL (6.4-8.2); SODIUM 133 mmol/L (136-145); UREA NITROGEN 19 mg/dL (7-18); eGFR NON AFRICAN AMERICAN > 90 mL/min (90-120)
--- NOTE | 2016-08-08 07:48 | NUR ---
AWAKE AND ALERT. ORINETED X3. NO C/O THIS AM. LUNGS ARE DIMINISHED THROUGHOUT LUNG DELEON, OCCASSIONAL DRY COUGH NOTED. SKIN IS INTACT WITHOUT REDNESS. VARIOUS AREAS OF BRUISING AND ABRASIONS ARE HEALING WITHOUT SIGNS OF INFECTION. SL TO LEFT AC IS PATENT WITHOUT REDNESS AT INSERTION SITE. DENIES NEEDS.
--- NOTE | 2016-08-08 10:00 | NUR ---
WAS UP TO BSC PER PT. HAD MODERATE AMOUNT OF LOOSE WATERY STOOL.
--- NOTE | 2016-08-08 13:05 | NUR ---
OFF UNIT VIA BED FOR TESTS.
--- NOTE | 2016-08-08 14:31 | NUR ---
RETURNED FROM [facility]. NO C/O AT THIS TIME.
--- NOTE | 2016-08-08 16:06 | NUR ---
REQUESTED AND GIVNE 0.5MG ATIVAN PO FOR ANXIETY. WILL MONITOR.
--- NOTE | 2016-08-08 17:51 | NUR ---
RESTING QUIETLY IN BED. REPORTS GOOD RELIEF WITH USE OF TYLENOL. FAMILY IN ROOM. DENIES NEEDS. NO CHANGES NOTED.
--- NOTE | 2016-08-08 18:06 | NUR ---
ASSISTED WITH BED BASS. SMALL STAGE 2 NOTED TO RIGHT BUTTOCK APPROXIMATLY 2CMX1,5 CM. REPOSITIONED IN BED FOR COMFORT. BUTT BALM APPLIED TO STAGE 2.
--- NOTE | 2016-08-08 19:10 | NUR ---
ASSESSMENT COMPLETED, NO ACUTE DISTRESS NOTED, SR'S UP, HOB ELEVATED, CL IN REACH, VSS WILL MONITOR
--- NOTE | 2016-08-08 21:11 | NUR ---
MEDS GIVEN PER MAR, KELLY WELL, SR'S UP, CL IN REACH
--- NOTE | 2016-08-08 23:02 | NUR ---
PRN ATIVAN GIVEN PER REQUEST, KELLY WELL, FALL PRECAUTIONS IN PLACE, CL IN REACH
[2016-08-09] VITALS (11 sets, daily range): BP systolic 90–150; BP diastolic 46–76
--- NOTE | 2016-08-09 01:18 | NUR ---
ASSISTED ON AND OFF BEDPAN, LARGE AMT WATERY BROWN LIQUID, CLEANED AND REPOSITIONED, FALL PRECAUTIONS IN PLACE, CL IN REACH
[2016-08-09 06:21] LABS: BASOPHILS 0.2 % (0-2); EOSINOPHILS 0.6 % (0-7); HEMATOCRIT 27.9 % (36.0-48.0); HEMOGLOBIN 8.5 g/dL (12-16); IMMATURE GRANULOCYTES 0.2 % (0-5); LYMPHOCYTES 17.5 % (15-50); MCH 24.9 pg (26.0-34.0); MCHC 30.5 g/dL (31.0-37.0); MCV 81.6 fL (80.0-100.0); NEUTROPHILS 68.5 % (40-80); PLATELET COUNT 366 10x3/uL (130-400); RBC 3.42 10x6/uL (4.00-5.40); RDW 15.5 % (11.5-14.5)
[2016-08-09 06:24] LABS: WBC 5.4 10x3/uL (4.8-10.8)
[2016-08-09 07:09] LABS: ALBUMIN 1.7 g/dL (3.4-5.0); ALKALINE PHOSPHATASE 94 U/L (46-116); ALT (SGPT) 15 U/L (10-68); CALC OSMOLALITY 275 mosm/kg (275-300); CALCIUM 8.1 mg/dL (8.5-10.1); CARBON DIOXIDE 22.7 mmol/L (21.0-32.0); CHLORIDE - SERUM 103 mmol/L (98-107); CREATININE - SERUM 0.7 mg/dL (0.6-1.3); GLUCOSE 91 mg/dL (74-106); POTASSIUM - SERUM 4.3 mmol/L (3.5-5.1); PROTEIN - SERUM 6.2 g/dL (6.4-8.2); SODIUM 136 mmol/L (136-145); UREA NITROGEN 23 mg/dL (7-18); eGFR NON AFRICAN AMERICAN 89 mL/min (90-120)
--- NOTE | 2016-08-09 09:34 | NUR ---
PT AOX4 RESP EVEN AND NONLABORED PT DENIES NEEDS AT THIS TIME IV TO LEFT AC PATENT AND INTACT BED AT LOWEST SETTING SRX2 CALL LIGHT WITHIN REACH WILL CONTINUE TO MONITOR
--- NOTE | 2016-08-09 19:14 | NUR ---
PATIENTS SKIN VERY PURPLISH WITH BRUISING ON ARM AND LEGS THIS WAS NOTED WHEN BROUGHT TO THE OR, [facility].
--- NOTE | 2016-08-09 20:15 | NUR ---
PT ARRIVED ON UNIT VIA BED, OR CREW AT BEDSIDE, PLACED ON MONITORS, PT ON VENT 7.0 ETT, 22 AT LIP, TAPED AND SECURE, ON 100% FIO2 WITH 96% O2 SAT. LUNGS DIMINISHED IN ALL LOBES, S1S2, CM-NSR, PATEN RIGHT IJ WITH NS INFUSING @ 125 ML/HR VIA PUMP, PATENT RIGHT CHELSY, GOOD WAVEFORM, ABDOMEN IS OPEN WITH BAND COVERING OVER OPEN INCSION, NO DRAINAGE NOTED, PATENT F/C WITH YELLOW UOP, B/L WRIST RESTRAINTS IN USE, PT TEMP 92.2 RECTALLY, SHAUNA HUGGER APPLIED, ALL PP WEAK, WILL CON'T TO MONITOR
--- NOTE | 2016-08-09 21:25 | NUR ---
UPDATE GIVEN TO DR. GARCIA AT THIS TIME, NEW ORDERS RECIEVED
--- NOTE | 2016-08-09 23:15 | NUR ---
REASSESSMENT COMPLETE, NO CHANGES NOTED, ORAL CARE PROVIDED,
[2016-08-10] VITALS (73 sets, daily range): BP systolic 68–143; BP diastolic 40–91
--- NOTE | 2016-08-10 01:00 | NUR ---
PT SEDATED ON VENT, FOLLOWS COMMANDS
--- NOTE | 2016-08-10 03:15 | NUR ---
REASSESSMENT COMPLETE, PT NOW FOLLOWS COMMANDS, ORAL CARE PROVIDED,
[2016-08-10 03:31] LABS: BASOPHILS 0 % (0-2); EOSINOPHILS 0.5 % (0-7); HEMATOCRIT 29.9 % (36.0-48.0); HEMOGLOBIN 9.8 g/dL (12-16); IMMATURE GRANULOCYTES 0.3 % (0-5); LYMPHOCYTES 12.9 % (15-50); MCH 26.8 pg (26.0-34.0); MCHC 32.8 g/dL (31.0-37.0); MCV 81.9 fL (80.0-100.0); MEAN PLATELET VOLUME 9.1 fL (7.4-10.4); MONOCYTES 2.4 % (2-11); NEUTROPHILS 83.9 % (40-80); RBC 3.65 10x6/uL (4.00-5.40); RDW 14.7 % (11.5-14.5)
[2016-08-10 03:32] LABS: PLATELET COUNT 184 10x3/uL (130-400); WBC 3.8 10x3/uL (4.8-10.8)
[2016-08-10 03:59] LABS: ALBUMIN 1.8 g/dL (3.4-5.0); ALKALINE PHOSPHATASE 43 U/L (46-116); BILIRUBIN - TOTAL 1.19 mg/dL (0.2-1.3); CARBON DIOXIDE 20.3 mmol/L (21.0-32.0); CHLORIDE - SERUM 114 mmol/L (98-107); GLUCOSE 92 mg/dL (74-106); MAGNESIUM - SERUM 1.1 mg/dL (1.8-2.4); SODIUM 143 mmol/L (136-145); TROPONIN-I 0.018 ng/mL (0.000-0.060)
[2016-08-10 04:00] LABS: ALT (SGPT) 10 U/L (10-68); CALC OSMOLALITY 286 mosm/kg (275-300); CALCIUM 5.9 mg/dL (8.5-10.1); CREATININE - SERUM 0.4 mg/dL (0.6-1.3); PHOSPHOROUS 3.1 mg/dL (2.5-4.9); POTASSIUM - SERUM 3.6 mmol/L (3.5-5.1); PROTEIN - SERUM 3.9 g/dL (6.4-8.2); UREA NITROGEN 17 mg/dL (7-18); eGFR NON AFRICAN AMERICAN > 90 mL/min (90-120)
--- NOTE | 2016-08-10 05:13 | NUR ---
UPDATE CALLED TO DR. GARCIA, NEW ORDERS RECIEVED
--- NOTE | 2016-08-10 06:00 | NUR ---
FAMILY AT BEDSIDE, UPDATE GIVEN
--- NOTE | 2016-08-10 07:00 | NUR ---
PT REPORT REC'D, PT CARE ASSUMED. PT SEDATED ON VENT. VSS, HR SINUS TACH ON MONITOR. ORAL TEMP 102.4, ICE PACKS APPLIED, WILL CALL DR TO INFORM OF TEMP. RIGHT RADIAL A-LINE, EXTREMITY PINK AND WARM, WRIST PROTECTOR INTACT, GOOD WAVE FORM. RIGHT JUGULAR CVL WITH FLUIDS INFUSING, SEE FLOW SHEET, DRESSING CDI. ABDOMINAL INCISION, DRESSING CDI. PELAYO CATHETER FREE OF KINKS TO GRAVITY WITH DAWSON URINE RETURN. DISCOLORATION OF LOWER EXTREMITIES. PLEXI PULSE BOOTS. ROOM FREE OF CLUTTER, CALL LIGHT IN REACH. ROOM CLOSE TO NURSES STATION, WILL CONTINUE TO MONITOR PT.
--- NOTE | 2016-08-10 07:37 | NUR ---
UPDATE CALLED TO DR. GARCIA, NEW ORDERS RECIEVED,
--- NOTE | 2016-08-10 08:15 | NUR ---
CONTACTED DR. ANDREWS TO INFORM OF PT'S ORAL TEMP OF 102.4, "WILL PUT ORDERS IN." WILL CONTINUE TO MONITOR PT.
--- NOTE | 2016-08-10 08:40 | NUR ---
Nutrition follow-up: Pt is now intubated following colectomy. NPO Elevated temperature On pressors at this time Labs reviewed Wt: 111# Recommend starting TF when medically feasible. Wounld begin Pulmocare @ 20 ml/hr with increase to goal rate of 40 ml/hr RDN following.
--- NOTE | 2016-08-10 11:00 | NUR ---
PT SEDATED ON VENT, VSS, REASSESSMENT COMPLETED, SEE FLOW SHEET. ROOM FREE OF CLUTTER, ROOM CLOSE TO NURSES STATION. WILL CONTINUE TO MONITOR PT.
--- NOTE | 2016-08-10 11:15 | NUR ---
SPOKE WITH PTS SISTER, CESAR SCHAEFFER AND PTS BROTHER, HOLLY ORR, PTS FAMILY WISHING FOR PT TO BE A DNR CODE STATUS. SPOKE WITH DR. GARCIA. WILL CONTINUE TO MONITOR PT.
--- NOTE | 2016-08-10 19:30 | NUR ---
REPORT RECIEVED. ASSESSMENT COMPLETED. PT SEDATED ON VENT. ET TUBE SIZE 7 AT 22 AT THE LIP MIDLINE. SEE FLOWSHEET FOR VENT SETTINGS. PULSES DOPPLERED ON POSTERIOR TIBIAL. PELAYO PATENT FREE OF KINKS. A-LINE IN THE RIGHT RADIAL WITHN GOOD WAY FORM.PT POSITIONED FOR COMFORT AND SLEEPING. SEE FLOW SHEET FOR FURTHER ASSESSMENT.
[2016-08-11] VITALS (84 sets, daily range): BP systolic 73–136; BP diastolic 41–90
--- NOTE | 2016-08-11 00:26 | NUR ---
PT POSITIONED FOR COMFORT. ORAL CARE DONE.
--- NOTE | 2016-08-11 03:00 | NUR ---
PT SEDATED ON VENT. POSITIONED FOR COMFORT ORAL CARE GIVEN.
[2016-08-11 03:47] LABS: BASOPHILS 0.2 % (0-2); EOSINOPHILS 0 % (0-7); IMMATURE GRANULOCYTES 1.5 % (0-5); LYMPHOCYTES 4.3 % (15-50); MCH 27.4 pg (26.0-34.0); MCHC 32.9 g/dL (31.0-37.0); MCV 83.2 fL (80.0-100.0); MEAN PLATELET VOLUME 10.4 fL (7.4-10.4); MONOCYTES 1.6 % (2-11); NEUTROPHILS 92.4 % (40-80); RDW 15.7 % (11.5-14.5)
[2016-08-11 03:58] LABS: HEMATOCRIT 37.1 % (36.0-48.0); HEMOGLOBIN 12.2 g/dL (12-16); PLATELET COUNT 96 10x3/uL (130-400); RBC 4.46 10x6/uL (4.00-5.40); WBC 13.4 10x3/uL (4.8-10.8)
[2016-08-11 04:01] LABS: ANION GAP 15.6 mmol/L (8-16); CARBON DIOXIDE 15.4 mmol/L (21.0-32.0)
[2016-08-11 04:38] LABS: CREATININE - SERUM 0.9 mg/dL (0.6-1.3)
[2016-08-11 04:39] LABS: CALCIUM 6.6 mg/dL (8.5-10.1)
[2016-08-11 04:46] LABS: ALBUMIN 1.2 g/dL (3.4-5.0)
[2016-08-11 04:56] LABS: PLATELET ESTIMATE DECREASED
--- NOTE | 2016-08-11 06:01 | NUR ---
FAMILY AT BEDSIDE UPDATE GIVEN. PT POSITIONED FOR COMFORT ORAL CARE GIVEN.
--- NOTE | 2016-08-11 07:00 | NUR ---
PT REPORT REC'D, PT CARE ASSUMED. PT SEDATED ON VENT. RIGHT JUGULAR CVL WITH FLUIDS INFUSING, SEE FLOW SHEET, DRESSING CDI. ABDOMINAL INCISISON WITH BAND WRAP, CDI. PELAYO CATHETER FREE OF KINKS WITH DAWSON URINE RETURN. BILAT LOWER EXTREMETIES DOPPLERABLE. SHIFT ASSESSMENT COMPLETED, SEE FLOW SHEET. ROOM FREE OF CLUTTER, CALL LIGHT IN REACH. BED LOCKED IN LOWEST POSITION, WILL CONTINUE TO MONITOR PT.
--- NOTE | 2016-08-11 07:47 | NUR ---
CALLED PHARMACIST TO NOTIFY OF VANC LEVEL, "HOLD THE 815 DOSE." WILL CONTINUE TO MONITOR PT.
--- NOTE | 2016-08-11 09:50 | NUR ---
DR. GARCIA AT THE BEDSIDE
--- NOTE | 2016-08-11 11:00 | NUR ---
PT SEDATED ON VENT, VSS, DAWSON URINE RETURN TO PELAYO TO GRAVITY. REASSESSMENT COMPLETED, SEE FLOW SHEET. ROOM FREE OF CLUTTER, CALL LIGHT IN REACH, BED ALARM ON, WILL CONTINUE TO MONITOR PT.
--- NOTE | 2016-08-11 15:00 | NUR ---
PT SEDATED ON VENT, REASSESSMENT COMPLETED, SEE FLOW SHEET. ROOM FREE OF CLUTTER, BED LOCKED IN LOWEST POSITION, BED ALARM ON. WILL CONTINUE TO MONITOR PT.
--- NOTE | 2016-08-11 15:05 | NUR ---
PT HAS HAD 4000 MG OF TYLENOL, NOTIFIED DR. GARCIA OF THIS, "DO NOT GIVE HER ANYMORE TYLENOL TODAY."
--- NOTE | 2016-08-11 15:06 | NUR ---
PT FAMILY AT THE BEDSIDE, ALL QUESTIONS ANSWERED, WILL CONTINUE TO MONITOR PT.
--- NOTE | 2016-08-11 18:00 | NUR ---
PT FAMILY AT THE BEDSIDE, ALL QUESTIONS ANSWERED, VSS. WILL CONTINUE TO MONITOR PT.
--- NOTE | 2016-08-11 19:41 | NUR ---
OR CALLED PREOP ORDERS RECIEVED AND ADM. NURSE AT BEDSIDE. VSS.
--- NOTE | 2016-08-11 20:01 | NUR ---
OR TEAM AT BEDSIDE. VSS NO NEW FINDINGS. PT TAKEN TO OR.
--- NOTE | 2016-08-11 20:37 | NUR ---
ABD PACKING COUNT CORRECT, 10LAPS, 10 TOWELS, 2 HEMOSTATS FOUND AND REMOVED
--- NOTE | 2016-08-11 20:45 | NUR ---
GASTROSTOMY TUBE 24FR PLACED.
--- NOTE | 2016-08-11 21:30 | NUR ---
PT BACK FROM THE OR. HOOKED BACK ON MONITORS. PT TOLERATED WELL. SEDATED ON THE VENT. PT POSITIONED FOR COMFORT ORAL CARE DONE.
[2016-08-12] VITALS (94 sets, daily range): BP systolic 64–157; BP diastolic 43–81
[2016-08-12 03:37] LABS: BASOPHILS 0.2 % (0-2); EOSINOPHILS 2.3 % (0-7); HEMATOCRIT 39.1 % (36.0-48.0); HEMOGLOBIN 12.8 g/dL (12-16); IMMATURE GRANULOCYTES 9.3 % (0-5); LYMPHOCYTES 3.3 % (15-50); MCH 27.8 pg (26.0-34.0); MCHC 32.7 g/dL (31.0-37.0); MCV 84.8 fL (80.0-100.0); MONOCYTES 1.6 % (2-11); NEUTROPHILS 83.3 % (40-80); RBC 4.61 10x6/uL (4.00-5.40); RDW 16.3 % (11.5-14.5)
[2016-08-12 03:38] LABS: PLATELET COUNT 50 10x3/uL (130-400); WBC 18.4 10x3/uL (4.8-10.8)
[2016-08-12 03:59] LABS: ALBUMIN 1.1 g/dL (3.4-5.0); BILIRUBIN - TOTAL 0.74 mg/dL (0.2-1.3); CARBON DIOXIDE 12.4 mmol/L (21.0-32.0); CREATININE - SERUM 0.9 mg/dL (0.6-1.3); MAGNESIUM - SERUM 1.3 mg/dL (1.8-2.4); PROTEIN - SERUM 4.1 g/dL (6.4-8.2); VANCOMYCIN - RANDOM 31.2 ug/mL (10.0-20.0)
[2016-08-12 04:21] LABS: ANION GAP 22.9 mmol/L (8-16); CALCIUM 6.4 mg/dL (8.5-10.1); POTASSIUM - SERUM 4.3 mmol/L (3.5-5.1)
--- NOTE | 2016-08-12 07:00 | NUR ---
PT REPORT RECIEVED PT CARE ASSUMED PT SEDATED ON VENT VSS RIGHT JUGULAR CVL IN PLACE SEE FLOWSHEET ABDOMINAL DRESSING CDI AMOR DRAINS TO ABDOMEN X2 COMPRESSED WITH SEROSANG FLUID NOTED PELAYO CATHETER CLEAR OF KINKS WITH DAWSON URINE NOTED SHIFT ASSESSMENT COMPLETED SHEE FLOW SHEET ROOM FREE OF CLUTTER CALL LIGHT WITHIN REACH WILL CONTIUE TO MONITOR
--- NOTE | 2016-08-12 07:00 | NUR ---
PT REPORT REC'D, PT CARE ASSUMED, PT SEDATED ON VENT. VSS. RIGHT JUGULAR CVL WITH FLUIDS INFUSING, SEE FLOW SHEET, DRESSING CDI. ABDOMINAL DRESSING CDI, AMOR DRAIN TO ABDOMEN X2, SERO SANG DRAINAIGE NOTED. PELAYO CATHETER FREE OF KINKS TO GRAVITY WITH DAWSON URINE RETURN. SHIFT ASSESSMENT COMPLETED, SEE FLOW SHEET. ROOM FREE OF CLUTTER, CALL LIGHT IN REACH. WILL CONTINUE TO MONITOR PT.
--- NOTE | 2016-08-12 09:32 | NUR ---
Nutrition follow-up: Pt remains intubated s/p total colectomy gastrostomy tube, 24F, placed AMOR drains to abdomen x 2 Labs reviewed Wt: 136# Pt is NPO at this time. Will need nutrition support soon. RDN following.
--- NOTE | 2016-08-12 11:00 | NUR ---
PT SEDATED ON VENT, VSS. REASSESSMENT COMPLETED, SEE FLOW SHEET. ROOM FREE OF CLUTTER, BED LOCKED IN LOWEST POSITION, WILL CONTINUE TO MONITOR PT.
--- NOTE | 2016-08-12 12:04 | NUR ---
Wound Care Consult/Wound Vac application As per Dr. Haskins's orders applied wound vac dressing to midline abdominal incision. Incision measures 25cm x 5cm x 2.2cm. Adipose tissue is noted and wound bed is pink/red. Small amount of serosanguinous drainage was noted on dressing that was removed. No odor. Cut a black sponge to fit wound bed / covered sutured area with adaptic and secured with drape. Settings at -125mmhg/low/continuous. Pt has AMOR drain in right lower abd quad, AMOR drain left lower quad and G-tube right upper quad. Pt is intubated and sedated. Wound care will continue monitoring.
--- NOTE | 2016-08-12 12:05 | NUR ---
MELINDA WITH WOUND CARE AT THE BEDSIDE, WOUND VAC APPLIED TO ABDOMINAL INCISION, WILL CONTINUE TO MONITOR PT.
--- NOTE | 2016-08-12 12:11 | CN ---
PATIENT NAME:HAROLDO MITCHELL MEDICAL RECORD: [id number] : 54 LOCATION:[id number] ADMIT DATE: 07/20/16 ACCOUNT: [id number] CONSULTING PHYSICIAN: MERARI CUTLER MD REFERRING PHYSICIAN: RODRIGO RATLIFF MD DATE OF CONSULTATION: 07/21/2016 CONSULT REQUESTING PHYSICIAN: Dr. Ratliff. REASON FOR CONSULTATION: [id number] hypoxic respiratory failure, COPD exacerbation. HISTORY OF PRESENT ILLNESS: Ms. Mitchell is a 66-year-old female. Initially, she was admitted through the ER for 1 week with decreased appetite, having some diarrhea and abdominal pain. Also, today she has worsening shortness of breath. She was wheezing. She was coughing. She was pretty dyspneic. Denies any fever and chill. No night sweats. REVIEW OF SYSTEMS: Mainly in the history of present illness. PAST MEDICAL HISTORY: 1. COPD. 2. Hypertension. 3. Chronic tobacco dependence syndrome. PAST SURGICAL HISTORY: 1. She has cataract surgery. 2. Hysterectomy. ALLERGIES: SHE IS ALLERGIC TO CODEINE AND PENICILLIN. PRESENT MEDICATIONS: She is on Levaquin and Flagyl IV. Her other medication is reviewed. PERSONAL AND SOCIAL HISTORY: The patient is still current day smoker, 1 pack per day. She was also a drinker and she quit it 2 months ago. FAMILY HISTORY: Noncontributory. PHYSICAL EXAMINATION: GENERAL: Now, the patient is lying comfortably. She is very lethargic. VITAL SIGNS: The blood pressure is 97-106/51, pulse is 111, respirations 20, temperature 97.5, SPO2 is 92% on 2 liters nasal cannula. HEENT: Conjunctivae are pink. Sclerae are nonicteric. NECK: Supple. No JVD. CHEST: There are bilateral crackles, wheeze on forceful expiration. HEART: Rhythm regular, normal sound, no murmur. ABDOMEN: Soft. Bowel sounds present. No hepatosplenomegaly. The bowel sounds are muffled. The abdomen is tender on palpation. RECTAL: Deferred. EXTREMITIES: No cyanosis, no clubbing, no pedal edema. SKIN: Warm, normal turgor. CENTRAL NERVOUS SYSTEM: The patient is awake and alert. There is no obvious cranial nerve abnormality. The patient is very lethargic. CONSULT REPORT [id number] HAROLDO MITCHELL LABORAT[facility] DATA: CBC: The WBC is 32.0, hemoglobin 10.5, hematocrit 31.3, the platelet count is 474. Chemistry: Sodium is 129, potassium 5.2, BUN is 59, creatinine 2.7, bicarb is 20. ABG: The pH is 7.34, pCO2 is 38.9, bicarbonate is initially of 14.2, now is 21.1. The lactic acid level is 2.3. The proBNP is 1851. Ammonia level is 42. IMPRESSION: 1. Acute exacerbation of chronic obstructive pulmonary disease. 2. Pneumonia, left lower lobe, possible community-acquired pneumonia. 3. Acute hypoxic respiratory failure. 4. Ischemic colitis. 5. Hyperammonemia. 6. Acute renal failure with acute tubular necrosis. 7. Ileus, most likely secondary to ischemic colitis. 8. Leukocytosis. 9. Metabolic acidosis. RECOMMENDATION: 1. Continue IV fluid. I will add bicarbonate drip at 50 cc an hour. Continue Levaquin and Flagyl. I will add cefepime. 2. Agree with NG tube suction, albuterol/ipratropium nebulizer. Add Brovana and budesonide nebulizer. Start methylprednisolone IV. 3. Follow up labs and chest radiograph. We will transfer the patient to the ICU. 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
--- NOTE | 2016-08-12 15:00 | NUR ---
PT SEDATED ON VENT, VSS. REASSESSMENT COMPLETED, SEE FLOW SHEET. ROOM FREE OF CLUTTER, CALL LIGHT IN REACH, WILL CONTINUE TO MONITOR PT.
--- NOTE | 2016-08-12 18:00 | NUR ---
PT FAMILY AT THE BEDSIDE, UPDATE GIVEN, ALL QUESTIONS ANSWERED, VSS, WILL CONTINUE TO MONITOR PT.
--- NOTE | 2016-08-12 18:25 | NUR ---
BED BATH GIVEN, COMPLETE LINEN CHANGE. VSS, WILL CONTINUE TO MONITOR PT.
--- NOTE | 2016-08-12 19:00 | NUR ---
REPORT RECIEVED, SHIFT ASSESSMENT COMPLETE, PT IS SEDATED ON VENT, ON 50% FIO2 WITH 97% O2 SAT. LUNGS DIMINISHED IN ALL LOBES, S1S2, CM-ST, PATENT RIGHT RADIAL CHELSY, PATENT RIGHT IJ CVL...SEE FLOW SHEET...WOUND VAC TO ABDOMEN, NO ACTIVE BS, AMOR DRAINS X2 TO ABODMEN SEROUS DRAINAGE NOTED, G-TUBE TO GRAVITY WITH GREEN DRAINAGE NOTED, PATENT F/C WITH DAWSON UOP, EDEMA NOTED, ALL PP DOPPLERED, WILL CON'T TO MONITOR
--- NOTE | 2016-08-12 21:00 | NUR ---
NO VISITORS AT THIS TIME, REPOSITIONED FOR COMFORT, WILL CON'T TO MONITOR
--- NOTE | 2016-08-12 23:00 | NUR ---
REASSESSMENT COMPLETE, NO CHANGES NOTED, WILL CON'T TO MONITOR
[2016-08-13] VITALS (84 sets, daily range): BP systolic 77–149; BP diastolic 36–76
--- NOTE | 2016-08-13 01:14 | NUR ---
REPOSITIONED FOR COMFORT, ORAL CARE PROVIDED
--- NOTE | 2016-08-13 03:17 | NUR ---
REASSESSMENT COMPLETE, NO CHANGES NOTED, RAD IN ROOM FOR DAILY CXR, WILL CON'T TO MONITOR
[2016-08-13 03:54] LABS: BASOPHILS 0.2 % (0-2); EOSINOPHILS 0.9 % (0-7); HEMATOCRIT 35.8 % (36.0-48.0); HEMOGLOBIN 11.9 g/dL (12-16); IMMATURE GRANULOCYTES 5.4 % (0-5); LYMPHOCYTES 8.4 % (15-50); MCH 27.9 pg (26.0-34.0); MCHC 33.2 g/dL (31.0-37.0); MONOCYTES 2.9 % (2-11); NEUTROPHILS 82.2 % (40-80); RBC 4.26 10x6/uL (4.00-5.40); RDW 16.3 % (11.5-14.5); WBC 10.5 10x3/uL (4.8-10.8)
[2016-08-13 03:55] LABS: PLATELET COUNT 22 10x3/uL (130-400)
[2016-08-13 04:21] LABS: BILIRUBIN - TOTAL 0.96 mg/dL (0.2-1.3); VANCOMYCIN - RANDOM 27.2 ug/mL (10.0-20.0)
[2016-08-13 04:22] LABS: ALBUMIN 0.8 g/dL (3.4-5.0); ANION GAP 17.7 mmol/L (8-16); CARBON DIOXIDE 16.8 mmol/L (21.0-32.0); POTASSIUM - SERUM 3.5 mmol/L (3.5-5.1); PROTEIN - SERUM 3.9 g/dL (6.4-8.2)
[2016-08-13 04:24] LABS: CALCIUM 6.8 mg/dL (8.5-10.1)
--- NOTE | 2016-08-13 05:15 | NUR ---
REPOSITONED FOR COMFORT, ORAL CARE PROVIDED,
--- NOTE | 2016-08-13 06:16 | NUR ---
FAMILY AT BEDSIDE, UPDATE GIVEN
--- NOTE | 2016-08-13 07:00 | NUR ---
PT DISORIENTED AND INTUBATED AT THIS TIME. VENT SETTINGS REMAIN UNCHANGED. ORAL AND ENDOTRACHEAL SUCITON PERFORMED AND PT RESPIRATIONS STABLE. NORMAL SINUS ON MONITOR. CHELSY ZEROED AND CHECKED FOR ACCURACY. WILL ADJUST LEVOPHED NEEDED. SPOKE WITH DR LINDSEY ABOUT SWELLING IN EXTREMITIES X4 AND CRACKLES AUSCULTATED IN LUNGS, FLUIDS DECREASED TO 75 PER ORDER. FULL SHIFT ASSESSMENT DOCUMENTED PER FLOWSHEET. WILL CONTINUE TO MONTIOR
--- NOTE | 2016-08-13 09:00 | NUR ---
PT REPSITIONED IN BED FOR COMFORT. ORAL AND ETT SUCTION PERFORMED. LINES CHANGED FOR IV TUBING. ART LINE ZEROED. WILL CONTINUE TO MONITOR
--- NOTE | 2016-08-13 10:48 | NUR ---
Wound care / vac dressing change 25cm x 5cm x 2.2cm No change in wound since application of wound vac dressing yesterday. Adipose tissue noted. Wound bed is pink/pale in color. Very small serous drainage. No odor. -125mmhg low continuous. Wound care will continue to monitor.
--- NOTE | 2016-08-13 11:00 | NUR ---
NO ACUTE CHANGES IN PT STATUS AT THIS TIME. WILL CONTINUE TO MONITOR
--- NOTE | 2016-08-13 12:59 | OP ---
PATIENT NAME: HAROLDO MITCHELL MEDICAL RECORD: [id number] :54 LOCATION:D.[facility] D.2303 ADMISSION DATE:07/20/16 SURGEON: TODD ANDREWS MD DATE OF OPERATION: 08/11/2016 DATE OF OPERATION: 08/11/2016. PREOPERATIVE DIAGNOSES: 1. Open abdomen. 2. Ischemic colitis with feculent peritonitis, status post total colectomy. 3. Chronic obstructive pulmonary disease. 4. Acute kidney injury. 5. Respiratory failure. POSTOPERATIVE DIAGNOSES: 1. Open abdomen. 2. Ischemic colitis with feculent peritonitis, status post total colectomy. 3. Chronic obstructive pulmonary disease. 4. Acute kidney injury. 5. Respiratory failure. PROCEDURE: 1. Abdominal washout with ileorectal anastomosis. 2. Gastrostomy tube placement. 3. Abdominal closure SURGEON: Sanya Haskins M.D. ORE WASHER: Liliya Alves MD. REPORT OF OPERATION: The patient's indwelling wound VAC was removed and the lap pads were taken out of the abdomen. The patient's abdomen was then irrigated out with normal saline. The bowel itself appeared to be viable and pink with no signs of necrosis. There was no sign of intraoperative purulence or infection. The abdomen was irrigated out thoroughly with normal saline. An anastomosis was performed of the terminal ileum to the rectal stump. This was performed in a [id number] manner using a 75 blue load BAM stapler with the enterotomies closed off with a 30 blue load TA stapler. Suture lines were then oversewn with Lemberted 3-0 Vicryls. The pursestring was then made on the antrum of the stomach. An opening was performed. We then opened up the patient's abdominal wall in the left upper quadrant and inserted a 24-Slovak gastrostomy tube, this was brought down through the gastrostomy opening and the balloon was OPERATIVE REPORT [id number] HAROLDO MITCHELL insufflated. The pursestring was tied down tightly and the gastrostomy tube was pulled up to the abdominal wall. The midline fascia was then closed with running #1 loop PDS times 2 and the skin was left open. COMPLICATIONS: None. CONDITION: Fair. ANESTHESIA: General endotracheal. TRANSINT:[id number] Voice Confirmation ID: [id number] DOCUMENT ID: [id number] TODD ANDREWS MD at 1259 CC: [id number] DICTATION DATE: 08/11/162104 FOREIGN LANGUAGE TEACHER: 08/12/16 0149 ADM IN [facility] [address] [place] [address]
--- NOTE | 2016-08-13 13:00 | NUR ---
PT REMAINS WITH NO CHANGES IN CONDITION, FAMILY CALLED AND GIVEN UPDATE. JAMES BUCKNERE CHANGES IN PT STATUS AT THIS TIME
--- NOTE | 2016-08-13 15:00 | NUR ---
ORAL AND ETT SUCTION PERFORMED. REASSESSMENT COMPLETED AND DOCUMENTED PER FLOWSHEET. WILL CONTINUE TO MONITOR
--- NOTE | 2016-08-13 17:00 | NUR ---
NO ACUTE CHANGES IN PT STATUS AT THIS TIME. LEVOPHED BEING TITRATED ACCORDING TO PRESSURE. WILL CONTINUE TO MONTIOR CLOSELY.
--- NOTE | 2016-08-13 23:30 | NUR ---
1929- REPORT RECVD. CARE ASSUMED. INITIQL ASSMNT COMPLETED. SEE FLOWSHEET FOR ALL FINDINGS. SEDATED ON MECH VENT. LUNGS WITH SCANT CRACKLES THRU OUT UPPER LOBES AND DIM IN BASES. AC RATE, 50% FIO2. SPO2 99% SR ON THE MONITOR. RIGHT RADIAL A-LINE ZEROED AND BALANCED. GOOD WAVE FORM SEEN. SYS B/P WITHIN PARAMETERS. LEVOPHED GTT TITRATION IN PROGRESS. GENERALIZED EDEMA NOTED. BILAT UPPER EXT WITH WEEPING NOTED. SKIN IS THIN. ABD WOUND WITH WOUND VAC DRESSING CDI. BROWNISH DRNG NOTED TO CANISTER. NO BOWEL SOUNDS PER AUSC. F/C PATENT WITH DARK DAWSON UOP. TURNED AND REPOSITIONED WITH ORAL CARE PER VAP. HOB UP. RESTRAINTS PER PROTOCOL. CONT CURRENT POC. 2100- NO VISISTORS. TURNED AND REPOSITIONED. ORAL CARE PER VAP. VSS. NO SIG CHANGES SEEN. CONT CURRENT POC. 2330- REASSESSMENT COMPLETES. SEE FLOWSHEET FOR ALL FINDINGS. SEDATED ON MECH VENT. LUNGS WITH SCANT CRACKLES THRU OUT UPPER LOBES AND DIM IN BASES. AC RATE, 50% FIO2. SPO2 99% SR ON THE MONITOR. RIGHT RADIAL A-LINE ZEROED AND BALANCED. GOOD WAVE FORM SEEN. SYS B/P WITHIN PARAMETERS. LEVOPHED GTT TITRATION IN PROGRESS. GENERALIZED EDEMA NOTED. BILAT UPPER EXT WITH WEEPING NOTED. SKIN IS THIN. ABD WOUND WITH WOUND VAC DRESSING CDI. BROWNISH DRNG NOTED TO CANISTER. NO BOWEL SOUNDS PER AUSC. F/C PATENT WITH DARK DAWSON UOP. TURNED AND REPOSITIONED WITH ORAL CARE PER VAP. HOB UP. RESTRAINTS PER PROTOCOL. CONT CURRENT POC.
[2016-08-14] VITALS (86 sets, daily range): BP systolic 83–135; BP diastolic 33–75
--- NOTE | 2016-08-14 01:15 | NUR ---
TURNED AND REPOSITIONED. ORAL CARE PER VAP. VSS. REMAINS ON LEVOPHED GTT TITRATION FOR HYPOTENSION. HOB UP. RESTRAINTS PER PROTOCOL. CONT CURRENT POC.
--- NOTE | 2016-08-14 03:30 | NUR ---
REASSESSMENT COMPLETED. SEE FLOWSHEET FOR ALL FINDINGS. SEDATED ON MECH VENT. LUNGS WITH SCANT CRACKLES THRU OUT UPPER LOBES AND DIM IN BASES. AC RATE, 50% FIO2. SPO2 99% SR ON THE MONITOR. RIGHT RADIAL A-LINE ZEROED AND BALANCED. GOOD WAVE FORM SEEN. SYS B/P WITHIN PARAMETERS. LEVOPHED GTT TITRATION IN PROGRESS. GENERALIZED EDEMA NOTED. BILAT UPPER EXT WITH WEEPING NOTED. SKIN IS THIN. ABD WOUND WITH WOUND VAC DRESSING CDI. BROWNISH DRNG NOTED TO CANISTER. NO BOWEL SOUNDS PER AUSC. F/C PATENT WITH DARK DAWSON UOP. TURNED AND REPOSITIONED WITH ORAL CARE PER VAP. HOB UP. RESTRAINTS PER PROTOCOL. CONT CURRENT POC.
[2016-08-14 03:41] LABS: BASOPHILS 0 % (0-2); EOSINOPHILS 0 % (0-7); HEMATOCRIT 29.1 % (36.0-48.0); IMMATURE GRANULOCYTES 1.9 % (0-5); LYMPHOCYTES 11.4 % (15-50); MCHC 32.6 g/dL (31.0-37.0); MCV 82.7 fL (80.0-100.0); MONOCYTES 3.4 % (2-11); NEUTROPHILS 83.3 % (40-80); RBC 3.52 10x6/uL (4.00-5.40); RDW 16.1 % (11.5-14.5)
[2016-08-14 03:47] LABS: HEMOGLOBIN 9.5 g/dL (12-16); WBC 6.4 10x3/uL (4.8-10.8)
[2016-08-14 03:48] LABS: PLATELET COUNT 13 10x3/uL (130-400)
[2016-08-14 04:08] LABS: BILIRUBIN - TOTAL 0.71 mg/dL (0.2-1.3); CREATININE - SERUM 0.9 mg/dL (0.6-1.3); PHOSPHOROUS 5.9 mg/dL (2.5-4.9); POTASSIUM - SERUM 3.2 mmol/L (3.5-5.1); PROTEIN - SERUM 3.6 g/dL (6.4-8.2); VANCOMYCIN - RANDOM 18.2 ug/mL (10.0-20.0)
[2016-08-14 04:13] LABS: ALBUMIN 1.3 g/dL (3.4-5.0); ANION GAP 16.8 mmol/L (8-16); CARBON DIOXIDE 21.4 mmol/L (21.0-32.0)
[2016-08-14 04:14] LABS: CALCIUM 6.9 mg/dL (8.5-10.1)
--- NOTE | 2016-08-14 05:00 | NUR ---
TREATING K+ LEVEL PER PROTOCOL. CORRECTED CA+ IS 9.06
--- NOTE | 2016-08-14 06:00 | NUR ---
SPOKE WITH DR SOARES. REPORTED LOW PLATLET LEVEL. NO NEW ORDERS AT THIS TIME. WILL BE UP TO SEE PT SHORTLY.
--- NOTE | 2016-08-14 08:01 | NUR ---
TEMP 93.1 ORAL, TEMP. 94.[address] ON PATIENT AND IN USE AT PRESENT.
[2016-08-14 10:34] LABS: APTT 38.7 SECONDS (22.8-39.4); INR 1.11 (0.85-1.17); PROTIME 14.2 SECONDS (11.6-15.0)
[2016-08-14 10:35] LABS: D-DIMER-QUANTITATIVE 3.08 ug/mLFEU (0.20-0.54)
--- NOTE | 2016-08-14 10:41 | NUR ---
Nutrition Follow Up: Chart reviewed. Pt remains sedated and intubated. Labs reviewed and TPN adjusted. Meds noted. RD will continue to monitor pt progress.
--- NOTE | 2016-08-14 11:00 | NUR ---
NO CHANGE TO PRIMARY ASSESSMENT
--- NOTE | 2016-08-14 14:18 | NUR ---
NOTED A-FIB WITH RVR, ECG OBTAINED AND DR. SOARES NOTIFIED WITH NEW ORDERS RECD. AND NOTED.
--- NOTE | 2016-08-14 15:00 | NUR ---
CHAGES NOTED CAN BE SEEN IN CARDIAC REASSESSMENT
--- NOTE | 2016-08-14 15:31 | NUR ---
THIS PATIENTS SKING INTEGRITY IS FAILING IN MULTIPLE AREAS, WHEN TURNED AND CLEANED SHE BEGINS TO WEEP FROM NEW SPOTS, SKIN IS VERY, VERY EASILY TORN. NURSES ARE CLEANING AND TURNING PATIENT EASILY AND GENTLY POSSIBLE. PATIENTS SKIN RUPTURES WITH THE SLIGHTEST PRESSURE.
--- NOTE | 2016-08-14 23:30 | NUR ---
1929- REPORT RECVD. CARE ASSUMED. INITIAL ASSMNT COMPLETED. SEE FLOWSHEET FOR ALL FINDINGS. SEDATED ON MECH VENT. LUNGS CLEAR THRU OUT UPPER LOBES AND DIM IN BASES. AC RATE, 50% FIO2. SPO2 99% SR ON THE MONITOR WITH BBB NOTED. CORDARONE GTT INFUSING. RIGHT RADIAL A-LINE ZEROED AND BALANCED. GOOD WAVE FORM SEEN. SYS B/P WITHIN PARAMETERS. LEVOPHED GTT TITRATION IN PROGRESS. GENERALIZED EDEMA NOTED. BILAT UPPER EXT WITH WEEPING NOTED. SKIN IS THIN. GENERALIZED BLISTERING WITH MODERATE AMOUNT OF SEROUS DRNG NOTED. ABD WOUND WITH WOUND VAC DRESSING CDI. BROWNISH DRNG NOTED TO CANISTER. NO BOWEL SOUNDS PER AUSC. BILATERAL AMOR DRAINS WITH SEROUS DRNG. LUQ GTUBE INTACT WITH DARK BROWN BILE LIKE DRNG SEEN TO GRAVITY. F/C PATENT WITH DARK DAWSON UOP. TURNED AND REPOSITIONED WITH ORAL CARE PER VAP. HOB UP. RESTRAINTS PER PROTOCOL. CONT CURRENT POC. 2100- FAMILY AT BEDSIDE. TEACHING AND UPDATE PROVIDED. TURNED AND REPOSITIONED. ORAL CARE PER VAP. VSS. NO SIG CHANGES SEEN. CONT CURRENT POC. 2330- REASSESSMENT COMPLETES. SEE FLOWSHEET FOR ALL FINDINGS. SEDATED ON MECH VENT. LUNGS CKEAR IN UPPER LOBES AND DIM IN BASES. AC RATE, 50% FIO2. SPO2 99% BBB AND SR ON THE MONITOR. RIGHT RADIAL A-LINE ZEROED AND BALANCED. GOOD WAVE FORM SEEN. SYS B/P WITHIN PARAMETERS. LEVOPHED GTT TITRATION IN PROGRESS. GENERALIZED EDEMA NOTED. BILAT UPPER EXT WITH WEEPING NOTED. SKIN IS THIN. ABD WOUND WITH WOUND VAC DRESSING CDI. BROWNISH DRNG NOTED TO CANISTER. NO BOWEL SOUNDS PER AUSC. AMOR AND G TUBE INTACT. F/C PATENT WITH DARK DAWSON UOP. TURNED AND REPOSITIONED WITH ORAL CARE PER VAP. HOB UP. RESTRAINTS PER PROTOCOL. CONT CURRENT POC.
[2016-08-15] VITALS (77 sets, daily range): BP systolic 80–130; BP diastolic 42–67
--- NOTE | 2016-08-15 01:30 | NUR ---
TURNED AND REPOSITIONED. ORAL CARE PER VAP. EXTREME WEEPING CONTINUES. VSS. REMAINS IN SR WITH BBB SEEN. CONT CURRENT POC.
--- NOTE | 2016-08-15 03:30 | NUR ---
REASSESSMENT COMPLETED. SEE FLOWSHEET FOR ALL FINDINGS. SEDATED ON MECH VENT. LUNGS CLEAR THRU OUT UPPER LOBES AND DIM IN BASES. AC RATE, 50% FIO2. SPO2 99% BBB MPTED. SR ON THE MONITOR. RIGHT RADIAL A-LINE INTACT. GOOD WAVE FORM SEEN. SYS B/P WITHIN PARAMETERS. LEVOPHED GTT TITRATION IN PROGRESS. GENERALIZED EDEMA NOTED. BILAT UPPER EXT WITH WEEPING NOTED. SKIN IS THIN. ABD WOUND WITH WOUND VAC DRESSING CDI. BROWNISH DRNG NOTED TO CANISTER. NO BOWEL SOUNDS PER AUSC. BROWN BILE LIKE DRNG TO G TUBE BAG. F/C PATENT WITH DARK DAWSON UOP. TURNED AND REPOSITIONED WITH ORAL CARE PER VAP. HOB UP. RESTRAINTS PER PROTOCOL. CONT CURRENT POC.
[2016-08-15 03:51] LABS: BASOPHILS 0 % (0-2); EOSINOPHILS 0.1 % (0-7); HEMATOCRIT 27.6 % (36.0-48.0); IMMATURE GRANULOCYTES 0.8 % (0-5); LYMPHOCYTES 11.6 % (15-50); MCH 26.9 pg (26.0-34.0); MCHC 32.6 g/dL (31.0-37.0); MCV 82.4 fL (80.0-100.0); MEAN PLATELET VOLUME 9.6 fL (7.4-10.4); MONOCYTES 4.4 % (2-11); NEUTROPHILS 83.1 % (40-80); RBC 3.35 10x6/uL (4.00-5.40); RDW 16.2 % (11.5-14.5)
[2016-08-15 04:13] LABS: PLATELET COUNT 69 10x3/uL (130-400); WBC 10.8 10x3/uL (4.8-10.8)
[2016-08-15 04:26] LABS: ALKALINE PHOSPHATASE 215 U/L (46-116); ALT (SGPT) 22 U/L (10-68); BILIRUBIN - TOTAL 0.59 mg/dL (0.2-1.3); CHLORIDE - SERUM 107 mmol/L (98-107); CREATININE - SERUM 0.7 mg/dL (0.6-1.3); MAGNESIUM - SERUM 1.8 mg/dL (1.8-2.4); PHOSPHOROUS 5.8 mg/dL (2.5-4.9); PROTEIN - SERUM 4.4 g/dL (6.4-8.2); SODIUM 143 mmol/L (136-145); UREA NITROGEN 26 mg/dL (7-18); VANCOMYCIN - RANDOM 19.1 ug/mL (10.0-20.0); eGFR NON AFRICAN AMERICAN 89 mL/min (90-120)
[2016-08-15 04:37] LABS: ALBUMIN 1.8 g/dL (3.4-5.0); CALC OSMOLALITY 293 mosm/kg (275-300); CARBON DIOXIDE 27.3 mmol/L (21.0-32.0); GLUCOSE 163 mg/dL (74-106); POTASSIUM - SERUM 4.3 mmol/L (3.5-5.1)
--- NOTE | 2016-08-15 05:20 | NUR ---
BATH GIVEN. LINENS CHANGED. POSITIONED FOR COMFORT AND SKIN INTEGRITY. VSS. SR ON THE MONITOR. HOB UP. CONT CURRENT POC.
--- NOTE | 2016-08-15 06:00 | NUR ---
FAMILY AT BEDSIDE. UPDATE GIVEN.
--- NOTE | 2016-08-15 07:19 | NUR ---
NURSE CALLED FAMILY AND REQUESTED THEM TO VISIT AT ANY TIME, REGUARDLESS OF VISITING HOURS, DUE TO PATIENTS CURRENT CONDITION. NOTED 20 SEC. RUN OF MULTIFOCAL, INEFFECTIVE HEART RHYTHM, RUN OCCURED, THE ART LINE SHOWED 0 BP.
--- NOTE | 2016-08-15 08:08 | NUR ---
FAMILY ARRIVED AND AT BEDSIDE.
--- NOTE | 2016-08-15 08:22 | NUR ---
ONE FAMILY MEMBER ASKED IF PATIENT WAS BREATHING OVER THE VENT, EXPLAINED THE PROCESS AND VENT SETTINGS, FAMILY MEMBER UNHAPPY WITH ANSWER THAT THE PATIENT WAS NOT BREATHING OVER THE VENT. THE VENT IS SET AT 12 BPM, PATIENT OUTPUT IS 12 BPM, VENT ALARMS ARE SET AND PATIENT IS NOT TRIGGERING ANY ALARM.
--- NOTE | 2016-08-15 13:31 | NUR ---
VIRGINIE NOTIFIED OF SOFYA OF 3, INSTRUCTED TO CALL BACK WHEN BRAIN STUDY IS PLANNED OR IF WITHDRAW OF CARE IS CONSIDERED
--- NOTE | 2016-08-15 14:30 | NUR ---
EYE LIDS CLOSED AND 2X2s WITH SMALL AMT. OF PAPER TAPE USED TO HOLD LIDS SHUT.
--- NOTE | 2016-08-15 19:00 | NUR ---
REPORT RECEIVED AND ASSESSMENT COMPLETED SEE FLOWSHEET FOR FULL DETAILS. VSS WILL CONTINUE TO MONITOR. PT ON NOREPINEPHRINE. WILL CONTINUE TO MONITOR
--- NOTE | 2016-08-15 21:00 | NUR ---
2100 MEDS GIVEN NO OTHER CHANGES AT THIS TIME.
--- NOTE | 2016-08-15 23:00 | NUR ---
REASSESSMENT CMPLETED. SEE FLOWSHEET FOR DETAILS. FIO2 INCREASED TO 60. WILL MONITOR
[2016-08-16] VITALS (45 sets, daily range): BP systolic 87–178; BP diastolic 46–153
--- NOTE | 2016-08-16 01:00 | NUR ---
LEVOPHED NO TITRADED DOWN TO 7. WILL CONTINUE TO MONITOR.
--- NOTE | 2016-08-16 03:28 | NUR ---
REASSESSMENT COMPLETED. SEE FLOWSHEET FOR FULL DETAILS.
--- NOTE | 2016-08-16 03:28 | NUR ---
RADIOLOGY AT BEDSIDE. NO NEW CHANGES IN STATUS AT THIS TIME.
--- NOTE | 2016-08-16 05:00 | NUR ---
PT BEGAN GUPPY BREATHING AND WAS INCREASED TO 60% FIO2 BY RESPIRATORY. LEVOPHED TITRATED DOWN TO 4 AT THIS TIME. B/P 115/82 VIA ART LINE.
[2016-08-16 05:56] LABS: ALKALINE PHOSPHATASE 176 U/L (46-116); ALT (SGPT) 17 U/L (10-68); BILIRUBIN - TOTAL 0.57 mg/dL (0.2-1.3); CALCIUM 7.1 mg/dL (8.5-10.1); CARBON DIOXIDE 29.4 mmol/L (21.0-32.0); CHLORIDE - SERUM 103 mmol/L (98-107); CREATININE - SERUM 0.7 mg/dL (0.6-1.3); GENTAMICIN - TROUGH 2.7 ug/mL (0.5-2.0); MAGNESIUM - SERUM 1.7 mg/dL (1.8-2.4); PHOSPHOROUS 6.4 mg/dL (2.5-4.9); PROTEIN - SERUM 4.8 g/dL (6.4-8.2); SODIUM 138 mmol/L (136-145); VANCOMYCIN - RANDOM 13.2 ug/mL (10.0-20.0); eGFR NON AFRICAN AMERICAN 89 mL/min (90-120)
[2016-08-16 06:01] LABS: ALBUMIN 2.5 g/dL (3.4-5.0); CALC OSMOLALITY 290 mosm/kg (275-300); GLUCOSE 251 mg/dL (74-106); POTASSIUM - SERUM 5.1 mmol/L (3.5-5.1); UREA NITROGEN 33 mg/dL (7-18)
--- NOTE | 2016-08-16 09:57 | NUR ---
NUTRITION MONITORING & EVAL CHART REVIEWED. PT REMAINS ON VENT. ADJUSTED AND RENEWED TPN. RD FOLLOWING
--- NOTE | 2016-08-16 11:11 | NUR ---
Wound care/vac dressing change: WOUND VAC DRESSING CHANGE WOUND TYPE: surgical WOUND LOCATION: midline abd WOUND AGE IN MONTHS: week DEBRIDEMENT ATTEMPTED IN LAST 10 DAYS? DATE/TYPE: SERIAL DEBRIDEMENTS REQUIRED? unknown MEASUREMENT DATE: 08/16/16 25cm x 6cm x 2.2cm x 2.6cm from 9-3 oclock FULL THICKNESS? yes MUSCLE, TENDON OR BONE EXPOSED? no UNDERMINING? yes see above TUNNELING/SINUS? no APPEARANCE OF WOUND BED : pale pink/brown - lower aspect is dark brown EXUDATE (AMOUNT, COLOR, ODOR): small serous no odor FOAM TYPE: black # OF PIECES USED: 2 pieces EDUCATION: pt is intubated and unresponsive
--- NOTE | 2016-08-16 13:11 | NUR ---
RIGHT IJ CVL DRESSING CHANGED.
[2016-08-16 17:11] LABS: AEROBE ID Final report (())
--- NOTE | 2016-08-16 17:43 | NUR ---
BED CHANGED AND ABSORBANT PADS CHANGED UNDER AND OVER PATIENT, SHE WEEPS FROM ALL EXTREMETIES CONSTANTLY.
--- NOTE | 2016-08-16 19:00 | NUR ---
REPORT RECEIVED AND ASSESSMENT COMPLETED. SEE FLOWSHEET FOR FULL DETAILS. PT ART LINE NOW HAS VERY POOR WAVE FORM. CORRECTED WITH FLUSH; HOWEVER, FIX ONLY LASTS 2-3 MINUTES BEFORE WAVEFORM DETERIORATES AGAIN. NIBP PLACED. PT NO LONGER ON LEVOPHED. B/P VIA CUFF 115/65. MERREM 1215 DOSE STILL SHOWS RED ON SCREEN. PHARMACY CALLED, AND MERREM HAD BEEN D/C'D CHARTED NOT GIVEN FOR D/C PER PHARMACY. NO OTHER CHANGES AT THIS TIME. VSS. WILL CONTINUE TO MONITOR.
--- NOTE | 2016-08-16 21:00 | NUR ---
2100 MEDS GIVEN. FAMILY AT BEDSIDE. UPDATED ON PT CONDITION. NO OTHER CHANGES AT THIS TIME. VSS. WILL ONTIUE TO MONITOR
--- NOTE | 2016-08-16 23:00 | NUR ---
REASSESSMENT COMPLETED. SEE FLOWSHEET FOR FULL DETAILS.
[2016-08-17] VITALS (24 sets, daily range): BP systolic 91–136; BP diastolic 49–69
--- NOTE | 2016-08-17 03:00 | NUR ---
REASSESSMENT COMPLETED. SEE FLOWSHEET FOR FULL DETAILS.
[2016-08-17 05:58] LABS: INR 1.15 (0.85-1.17); PROTIME 14.5 SECONDS (11.6-15.0)
[2016-08-17 05:59] LABS: D-DIMER-QUANTITATIVE 3.35 ug/mLFEU (0.20-0.54)
[2016-08-17 06:21] LABS: ALBUMIN 2.7 g/dL (3.4-5.0); ALKALINE PHOSPHATASE 156 U/L (46-116); ALT (SGPT) 19 U/L (10-68); BILIRUBIN - TOTAL 0.72 mg/dL (0.2-1.3); CALCIUM 7.6 mg/dL (8.5-10.1); CARBON DIOXIDE 30.8 mmol/L (21.0-32.0); CHLORIDE - SERUM 99 mmol/L (98-107); LDH 282 U/L (81-234); MAGNESIUM - SERUM 1.9 mg/dL (1.8-2.4); PHOSPHOROUS 4.9 mg/dL (2.5-4.9); POTASSIUM - SERUM 4.9 mmol/L (3.5-5.1); PROTEIN - SERUM 4.8 g/dL (6.4-8.2); SODIUM 136 mmol/L (136-145); UREA NITROGEN 39 mg/dL (7-18)
[2016-08-17 06:23] LABS: CALC OSMOLALITY 284 mosm/kg (275-300); CREATININE - SERUM 0.5 mg/dL (0.6-1.3); GLUCOSE 179 mg/dL (74-106)
[2016-08-17 06:24] LABS: eGFR NON AFRICAN AMERICAN > 90 mL/min (90-120)
[2016-08-17 06:26] LABS: BASOPHILS 0 % (0-2); EOSINOPHILS 0 % (0-7); HEMATOCRIT 22.4 % (36.0-48.0); IMMATURE GRANULOCYTES 0.7 % (0-5); LYMPHOCYTES 7.5 % (15-50); MCHC 31.7 g/dL (31.0-37.0); MCV 82.1 fL (80.0-100.0); MONOCYTES 3.7 % (2-11); NEUTROPHILS 88.1 % (40-80); RBC 2.73 10x6/uL (4.00-5.40); RDW 16.7 % (11.5-14.5); WBC 9.5 10x3/uL (4.8-10.8)
[2016-08-17 06:29] LABS: HEMOGLOBIN 7.1 g/dL (12-16)
[2016-08-17 06:30] LABS: PLATELET COUNT 39 10x3/uL (130-400)
--- NOTE | 2016-08-17 08:20 | NUR ---
UNIT # 1 PRBC INITITATED PER ORDER AND PROTOCAL, VSS
--- NOTE | 2016-08-17 08:58 | NUR ---
AM MEDS GIVEN PER MAR AND PROTOCAL, NITRO PASTE TO TOES B/L,
--- NOTE | 2016-08-17 09:06 | NUR ---
RT AT BEDSIDE FOR BREATHING TREATMENT
--- NOTE | 2016-08-17 09:35 | NUR ---
NUTRITION MONITORING & EVAL CHART REVIEWED. ADDED MAG AND PHOS TO AM LABS. CONTINUE CURRENT TPN. RD FOLLOWING
--- NOTE | 2016-08-17 13:11 | NUR ---
EEG INITIATED BY NEURO TECH
--- NOTE | 2016-08-17 15:00 | NUR ---
NO ACUTE CHANGE FROM PREVIOUS ASSESSMENT, VSS, NO VISITORS AT THIS TIME
--- NOTE | 2016-08-17 18:00 | NUR ---
FAMILY AT BEDSIDE, STATUS UPDATED, AWAITING TO SPEAK WITH DR RENAE; EEG RESULTS
[2016-08-17 19:04] LABS: HEMATOCRIT 32.6 % (36.0-48.0)
--- NOTE | 2016-08-17 19:15 | NUR ---
REPORT RECIEVED, SHIFT ASSESSMENT COMPLETE, PT IS UNRESPONSIVE ON VENT, 7.0 ETT. 20 AT LIP, TAPED AND SECURE, ON 50% FIO2 WITH 97% O2 SAT. CRACKLES HEARD IN B/L UPPER LOBES, DIMINISHED IN B/L LOWER LOBES, S1S2, CM-NSR, PATENT RIGHT IJ...SEE FLOW SHEET...WOUND VAC TO ABDOMEN, ABSENT BOWEL SOUNDS X4, PATENT RIGHT/LEFT AMOR DRAINS WITH SEROUS DRAINAGE, PATENT F-TUBE WITH SEROUS DRAINAGE, PATENT F/C WITH YELLOW UOP, WEEPING EDEMA NOTED IN ALL EXTREMETIES, VSS, REPOSITONED FOR COMFORT, ORAL CARE PROVIDED,
--- NOTE | 2016-08-17 21:03 | NUR ---
NO VISITORS AT THIS TIME, WILL CON'T TO MONITOR
--- NOTE | 2016-08-17 23:22 | NUR ---
REASSESSMENT COMPLETE, RIGHT CHELSY VERMA AT THIS TIME, NO OTHER CHANGES, REPOSITIONED FOR COMFORT, ORAL CARE PROVIDED,
[2016-08-18] VITALS (14 sets, daily range): BP systolic 117–140; BP diastolic 54–67
--- NOTE | 2016-08-18 01:15 | NUR ---
REPOSITIONED FOR COMFORT, ORAL CARE PROVIDED,
--- NOTE | 2016-08-18 03:21 | NUR ---
RAD IN ROOM FOR DAILY CXR
[2016-08-18 03:40] LABS: BASOPHILS 0 % (0-2); EOSINOPHILS 0 % (0-7); HEMATOCRIT 31.8 % (36.0-48.0); HEMOGLOBIN 10.7 g/dL (12-16); IMMATURE GRANULOCYTES 0.7 % (0-5); LYMPHOCYTES 5.5 % (15-50); MCH 27.2 pg (26.0-34.0); MCHC 33.6 g/dL (31.0-37.0); MCV 80.7 fL (80.0-100.0); MONOCYTES 3.9 % (2-11); NEUTROPHILS 89.9 % (40-80); RDW 16.3 % (11.5-14.5)
[2016-08-18 03:41] LABS: PLATELET COUNT 41 10x3/uL (130-400); RBC 3.94 10x6/uL (4.00-5.40); WBC 12.1 10x3/uL (4.8-10.8)
[2016-08-18 03:54] LABS: CALC OSMOLALITY 286 mosm/kg (275-300); CARBON DIOXIDE 33.4 mmol/L (21.0-32.0); CHLORIDE - SERUM 98 mmol/L (98-107); CREATININE - SERUM 0.5 mg/dL (0.6-1.3); GLUCOSE 163 mg/dL (74-106); MAGNESIUM - SERUM 1.7 mg/dL (1.8-2.4); PHOSPHOROUS 4.7 mg/dL (2.5-4.9); POTASSIUM - SERUM 4.9 mmol/L (3.5-5.1); SODIUM 136 mmol/L (136-145); UREA NITROGEN 43 mg/dL (7-18); eGFR NON AFRICAN AMERICAN > 90 mL/min (90-120)
--- NOTE | 2016-08-18 05:23 | NUR ---
REPOSITIONED FOR COMFORT, ORAL CARE PROVIDED,
--- NOTE | 2016-08-18 07:00 | NUR ---
REC'D REPORT AND AND RESUMED CARE, ETT TO VENTILATION AND SECURED, IN AC MODE, WITH 50% FIO2, RIGHT IJ WITH BICARB GTT @ 125 CC/HR, TPN AT 40 CC/HR, CORDARONE GTT AT 0.5 MG/HR, ABDOMEN WITH WV TO VERTICAL INCISION, NO LEAKS DETECTED, AMOR DRAINS B/L AND G TUBE TO GRAVITY PELAYO WITH CLEAR YELLOW DRAINAGE TO BAG, SKIN WITH MULTI BRUISES THROUGHOUT, SEVERE WEEPING EDEMA NOTED, LUCIE PADS THROUGHOUT SATURATED WITH SEROUS COLORED FLUIDS, PADS CHANGED, UNRESPONSIVE TO VERBAL OR TACTILE STIMULI, ASSESSMENT COMPLETE PER FLOWSHEET
--- NOTE | 2016-08-18 07:10 | NUR ---
DR DAY AT BEDSIDE FOR EVAL, NEW ORDERS GIVEN, ATTEMPT TO SPEAK WITH FAMILY , NONE AVAIL IN WAITING ROOM AT THIS TIME
--- NOTE | 2016-08-18 07:25 | NUR ---
CORDARONE 360MG/200ML, BAG CHANGED, INFUSING AT 0.5 MG/HR, 16.7 CC/HR
--- NOTE | 2016-08-18 08:40 | NUR ---
AM MEDS GIVEN PER PROTOCAL AND MAR FLOWSHEET
--- NOTE | 2016-08-18 09:00 | NUR ---
ELECTRIC BLANKET WIRER: FATHER CHERIE AT BEDSIDE FOR LAST RITES, BROTHER AND SISTER IN LAW AT BEDSIDE, DISCUSSED PATIENT HAVING CT SCAN COMPLETED TODAY, PER BROTHER AND SISTER IN LAW THEY ARE WAITING FOR LIA RAYO AND SHAY TO COMMUNICATE RE: EEG THAT WAS COMPLETED ON 08/17, NO OTHER NEEDS AT THIS TIME
--- NOTE | 2016-08-18 09:18 | NUR ---
NUTRITION MONITORING & EVAL CHART REVIEWED. PT REMAINS ON VENT. TPN AT 40 CC/HR. RD FOLLOWING
--- NOTE | 2016-08-18 11:01 | NUR ---
WOUND VAC DRESSING CHANGE WOUND TYPE: SURGICAL WOUND LOCATION: MIDLINE ABD WOUND AGE IN MONTHS: WEEK DEBRIDEMENT ATTEMPTED IN LAST 10 DAYS? DATE/TYPE: SERIAL DEBRIDEMENTS REQUIRED? MEASUREMENT DATE: 08/18/16 25CM X 6CM X 2.2CM X 2.6CM FROM 8-4 OCLOCK FULL THICKNESS? YES MUSCLE, TENDON OR BONE EXPOSED? NO UNDERMINING? YES TUNNELING/SINUS? NO APPEARANCE OF WOUND BED : THEODORE/BROWN NECROTIC EXUDATE (AMOUNT, COLOR, ODOR): MODERATE/SEROUS/ NO ODOR FOAM TYPE: BLACK # OF PIECES USED: 3 PIECES ADAPTIC TO WOUND BED EDUCATION: PT IS NON-RESPONSIVE
[2016-08-18 12:18] LABS: HEPARIN INDUCED PLATELET AB 0.118 OD (0.000-0.400); PLT AB - HLA CLASS 1 Negative (Negative); PLT AB - IIb IIIa Negative (Negative); PLT AB - Ia IIa Negative (Negative); PLT AB - Ib IX Negative (Negative)
--- NOTE | 2016-08-18 15:00 | NUR ---
FAMILY AT BEDSIDE, STATUS UPDATE, UNSURE IF THEY WOULD LIKE FOR PATIENT TO HAVE CT SCAN IF IT IS NOT GOING TO CHANGE HER PROGNOSIS, WOULD LIKE FOR ME TO CALL DR RAYO'S FOR HIS OPINION
--- NOTE | 2016-08-18 15:17 | NUR ---
PC TO DR RATLIFF AND TO DR DAY, RE: NEED FOR CT OF HEAD AND PROGNOSIS, BOTH AGREE THAT CT SCAN WILL NOT CHANGE HER VERY POOR PROGNOSIS, PER DR DAY TEST WAS ORDER TO ALLIEVATE CONCERNS ABOUT POOR PROGNOSIS AND TO HELP FAMILY WITH MAKING DECISIONS CONCERNING PLAN OF CARE, BROTHER HOLLY MITCHELL AND WERE AT BESIDE, INFORMATION FROM BOTH MD'S WAS RELAYED AND STATUS WAS UPDATED, PER HOLLY AFTER TALKIN WITH SISTER THEY WILL CONSIDER WITHDRAWING SUPPORT
--- NOTE | 2016-08-18 15:40 | NUR ---
FAMILY DECISION MADE TO WITHDRAW PATIENT CARE, PAGE DR. FITZPATRICK FOR ORDERS
--- NOTE | 2016-08-18 16:10 | NUR ---
MORPHINE 10 MG, AND ATIVAN 2 MG IVP GIVEN PRE EXTUBATION
--- NOTE | 2016-08-18 17:10 | NUR ---
RT TO BEDSIDE, EXTUBATED TO 2L NC, NO RESPRATIONS NOTED, FAMILY CALLED TO BEDSIDE
[2016-08-18 17:13] LABS: AEROBE ID Preliminary report (()); RESULT 1 Gram positive rods (())
--- NOTE | 2016-08-18 17:15 | NUR ---
RESP 15, ON 2L NC, BP 135/66, O2 SAT 82, MORPHINE PROSTHETICS LAB TECHNICIAN INITIATED
--- NOTE | 2016-08-18 18:03 | NUR ---
NO RESP, NO HEART BEAT, SHOWING ASYSTOLE ON MONITOR, FAMILY TO BEDSIDE, TEARFUL, DECISION MADE FOR [facility] HOME, FAMILY WILL WAIT FOR CALL FROM HOME, ALL MEDS DC'D
--- NOTE | 2016-08-18 18:15 | NUR ---
DR PATTON FROM ER HERE TO PRONOUNCE, RECORD OF SIGNED, 1822 ANAND NOTIFIED OF , REF # [id number]
--- NOTE | 2016-08-18 18:33 | NUR ---
WALTER YIP DC, 25 CC WASTED, VERIFIED BY TIO FERNANDEZ RN
--- NOTE | 2016-08-18 18:55 | NUR ---
PC TO [facility] OF
--- NOTE | 2016-08-18 19:39 | NUR ---
HOME HERE FOR PT
--- NOTE | 2016-08-19 17:07 | NUR ---
Per CMS protocol, restraint report logged into data base.
--- NOTE | 2016-08-21 07:50 | EEG ---
PATIENT:HAROLDO MITCHELL DATE OF SERVICE: 07/20/16 MEDICAL RECORD: [id number] DATE OF : 54 LOCATION:D.230 D.ICU ADMISSION DATE: 07/20/16 REFERRING PHYSICIAN: INTERPRETING PHYSICIAN: JYOTI DAY MD DATE OF SERVICE: 08/17/2016 Referred as an inpatient by Dr. Scott, currently in room 2303. ELECTROENCEPHALOGRAM NUMBER: [id number]. DATE OF EXAMINATION: 08/17/2016 at 2:00 p.m. TECHNICAL DATA: This electroencephalographic recording consists of approximately 20 minutes of data collection utilizing the international 10/20 system of electrode placement and both referential and non-referential montages. Sixteen channels of electrocerebral recording are accompanied by a 17th channel dedicated to the electrocardiographic rhythm and 2 channels of electromyographic recording. Recording is performed entirely in the comatose state utilizing activation by photic stimulation. ELECTROENCEPHALOGRAPHIC DATA: The entirety of the recorded electrocerebral activity is recorded in the comatose state. Electromyographic artifact is diminished and rapid eye movements are not seen. A posterior dominant background has not developed. The study is monotonous and consists of a variety of slow wave activities that are irregular in morphology, generalized and symmetric in distribution and ranging from 1-4 Hz. No focal slowing is identified. No epileptiform discharges are seen. Photic stimulation induces no abnormal change in the recorded electrocerebral activity. INTERPRETATION: Continuous slow, generalized (coma). This electroencephalographic recording is indicative of a severe diffuse encephalopathy. TRANSINT:[id number] Voice Confirmation ID: [id number] DOCUMENT ID: [id number] JYOTI DAY MD at 0750 CC: [id number] DICTATION DATE: 08/18/16 0650 SENIOR PRINCIPAL PROCESS ENGINEER: 08/19/16 0234 DIS IN 08/18/16 [facility] [address] [place] [address]
[2016-08-22 14:09] LABS: AEROBE ID Final report (())
== END 2016-08-18 19:40 | DRG 981 ==
LOC: D.ER 09:05 → D.ICU 11:40 → D.MS 11:40 → D.ICU 07-21 17:06 → D.MS 07-28 07:31 → D.ICU 08-09 20:30
PROVIDERS: Emergency Medicine; Family Medicine; Internal Medicine Nephrology; Internal Medicine Pulmonary Disease; Surgery; ADMIT Family Medicine
PROC: 0T9B70Z Drainage of Bladder with Drainage Device, Via Natural or Artificial Opening (ICD-10-PCS; principal; 2016-07-20)
PROC: 5A1955Z Respiratory Ventilation, Greater than 96 Consecutive Hours (ICD-10-PCS; 2016-08-09)
PROC: 0DH60UZ Insertion of Feeding Device into Stomach, Open Approach (ICD-10-PCS; 2016-08-09)
PROC: 0DTE0ZZ Resection of Large Intestine, Open Approach (ICD-10-PCS; 2016-08-09 17:42)
PROC: 0JQ80ZZ Repair Abdomen Subcutaneous Tissue and Fascia, Open Approach (ICD-10-PCS; 2016-08-11)
PROC: 3E1M38Z Irrigation of Peritoneal Cavity using Irrigating Substance, Percutaneous Approach (ICD-10-PCS; 2016-08-11)
DX: N17.0 Acute kidney failure with tubular necrosis (principal); J96.21 Acute and chronic respiratory failure with hypoxia; J18.9 Pneumonia, unspecified organism; K65.9 Peritonitis, unspecified; A41.9 Sepsis, unspecified organism; R65.21 Severe sepsis with septic shock; G93.40 Encephalopathy, unspecified; E87.1 Hypo-osmolality and hyponatremia; J44.0 Chronic obstructive pulmonary disease with (acute) lower respiratory infection; J44.1 Chronic obstructive pulmonary disease with (acute) exacerbation; E87.0 Hyperosmolality and hypernatremia; K55.9 Vascular disorder of intestine, unspecified; K56.7 Ileus, unspecified; E87.2 Acidosis; G72.81 Critical illness myopathy; E86.0 Dehydration; E87.5 Hyperkalemia; I10 Essential (primary) hypertension; Z66 Do not resuscitate; F17.200 Nicotine dependence, unspecified, uncomplicated; F10.21 Alcohol dependence, in remission; F41.9 Anxiety disorder, unspecified; D64.9 Anemia, unspecified; E88.09 Other disorders of plasma-protein metabolism, not elsewhere classified; R41.0 Disorientation, unspecified; Z78.1 Physical restraint status; B95.7 Other staphylococcus as the cause of diseases classified elsewhere; K52.9 Noninfective gastroenteritis and colitis, unspecified; I95.9 Hypotension, unspecified; E87.6 Hypokalemia